=== PATIENT | female | born 1955 | race Caucasian/White ===

== ENCOUNTER → 2016-07-24 | Outpatient (CLI) | payer OTHER ==
[~2016-07-24] MED LIST: /LOR25TA PO; /METO25TAB PO; /NITR4TASL SL; /QUIN20TA PO; ACCU40TA PO; ALIG4CAP PO; AMLO5TAB2 PO; ATOR1TAB18 PO; AUGM875T27 PO; BACT800T5 PO; BENA25CA2 PO; CLAR10CA3 PO; CLOP75TA2 PO; COLA50CA3 PO; COQ-400C PO; CYMB60CA3 PO; DETR2CAP PO; DOC Q LACE PO; DOCU100C PO; DRIS50002 PO; DULE200A INH; DULO1CAP2 PO; EPIP0.3I2 INJ; EPIP0.3I2 SC; FERR325T PO; FERR325T3 PO; FLON0.054; FLUT1SPR2; FURO20TA2 PO; GABA300C3 PO; GLIM4TAB PO; HUMA100I5 SC; INSUHUMDS SC; INSULANT SC; IPRASOL4 NEB; KEFL250C6 PO; KETO2AER2 EXT; KETOCONAZOLE 2% TOP; LASI20TA PO; LETR2.5T PO; LEVA12INH INH; LEVA750T PO; LIDO1DIS2 TD; LIDO5DIS36 TD; LORA10TA2 PO; LYRI100C10 PO; LYRI75CA PO; METO25TAB PO; MOME50SP; NEOSOINT EXT; NIAC500T5 PO; NITR4TASL SL; NORC10TA2 PO; NORCOTAB PO; NYAM10003 EXT; NYST100024 TOP; NYST10CR TOP; OXYGEN; PLAV75TA38 PO; PROV10TA PO; QUIN20TA7 PO; RANE1000 PO; RANO5TAB PO; SING10TA32 PO; TOLT2TAB12 PO; TOUJ1.2I SC; TYLE325T5 PO; VICT18IN SC; VITA500047 PO; XANA0.25 PO; XANA0.5T PO; XOPEAER INH; [UNRECOGNIZED DRUG - CODE] SC; [UNRECOGNIZED DRUG - OTHER] INH; [UNRECOGNIZED DRUG - OTHER] TOP; gabapentin PO; niaspan PO; singular PO
--- NOTE | 2016-07-24 11:07 | REP ---
Right knee: Four views. History: Right leg pain. Question Murdock's cyst. Findings: Four views of the right knee demonstrate medial compartment osteoarthritic spurring and patellofemoral spurring and narrowing. There is nonarticular spurring on the superior and inferior poles of the patella as well. No evidence of joint effusion seen. The popliteal fossa soft tissues are unremarkable radiographically. Impression: Medial and patellofemoral compartment osteoarthritis. Signed by Rafael Nogueira MD 07/24/2016 02:39 P
--- NOTE | 2016-07-24 11:31 | REP ---
Right upper quadrant sonography: History: Elevated liver function studies. Findings: Scan quality is inhibited significantly by patient body habitus and overlying gas. The gallbladder is less than optimally seen although no stone or polyp or wall thickening is seen. Common bile duct is normal measuring 0.7 cm in greatest diameter. Poor insonation of the liver suggests fatty infiltration. There is a 0.7 cm hyperechoic area in the right lobe which may be a small hemangioma. No right renal abnormality is noted. The right kidney measures 10.2 x 5.2 x 5 cm. Impression: Very poor ultrasound image quality. Question 0.7 cm hemangioma of the right lobe of the liver and fatty infiltration of the liver. No other abnormality seen. Signed by Rafael Nogueira MD 07/24/2016 02:39 P
--- NOTE | 2016-07-24 12:32 | REP ---
SOFT-TISSUE ULTRASOUND RIGHT POPLITEAL FOSSA: HISTORY: Question Murdock's cyst. FINDINGS: Scanning of the right popliteal fossa in the area of palpable lump is performed. There is a subtle thin hypoechoic area in the posteromedial popliteal fossa soft tissues which may be a Murdock's cyst. This measures 5.3 cm in craniocaudal length by 1 cm in greatest thickness x 4 cm in medial to lateral dimension. Exam quality is inhibited by patient body habitus. IMPRESSION: Possible elongate Murdock's cyst in the posteromedial popliteal soft tissues. Signed by Rafael Nogueira MD 07/24/2016 02:40 P
== END ==
LOC: M RAD 09:50
PROVIDERS: ATTEND Nurse Practitioner Family
DX: R74.8 Abnormal levels of other serum enzymes (principal); M71.21 Synovial cyst of popliteal space [Baker], right knee; M17.11 Unilateral primary osteoarthritis, right knee

== ENCOUNTER 2016-07-30 11:28 | Emergency (ER) | payer OTHER ==
--- NOTE | 2016-07-30 12:23 | EDDOCDS ---
Physician Documentation [facility] Name: Montse Chaudhry Age: 61 yrs Sex: Female : 1955 Arrival Date: 07/30/2016 Time: 11:28 Bed PR Private MD: Yudi Vega NP Disposition: 07/30/16 12:13 Discharged to Home/Self Care. Impression: Pain in left knee. - Condition is Stable. - Discharge Instructions: Knee Bracing, Knee Pain. - Medication Reconciliation, Local Pharmacy Hours form. - Follow up: Orthopaedics, [facility]; When: Call to arrange an appointment; Reason: Further diagnostic work-up, Recheck today's complaints, Continuance of care. - Problem is new. - Symptoms are unchanged. Historical: - Allergies: Adhesives (Rash); Aspirin (Swelling); NSAIDS (Swelling); Pravachol; Zocor; Oatmeal; - Home Meds: 1. hydrocodone-acetaminophen 10-325 mg Oral tab 1 tab twice a day (Last dose: Unknown) 2. bupropion HCl 300 mg Oral Tb24 1 tab once daily 3. Xanax 0.5 mg Oral tab twice a day 4. Dulera 200-5 mcg/actuation inhalation HFAA daily 5. Humalog 90 units Sub-Q three times a day 6. Xopenex 45mcg/act 2 puffs Inhl every 4 hours 7. Ranexa 500 mg oral cp24 1 tab 2 times per day 8. nitroglycerin 0.4 mg SL subl prn 9. oxygen 4lnc 10. Singulair 10 mg Oral tab 1 tab once daily 11. loratadine 10 mg Oral tab 1 tab once daily 12. Lasix 20 mg Oral tab once daily 13. Toujeo SoloStar 150 subQ twice daily 14. metoprolol tartrate 25 mg Oral tab 1 tab 2 times per day 15. folic acid 800 mcg Oral tab 1 tab once daily 16. niaspan 500mg twice a day 17. Drisdol 50,000 unit Oral cap once wkly 18. quinapril 20 mg Oral tab 1 tab 2 times per day 19. Benadryl 25 mg Oral cap prn 20. nystatin cream 37425 units/gm twice a day 21. Plavix 75 mg Oral tab 1 tab once daily 22. atorvastatin 80 mg oral tab 1 tab once daily 23. Cymbalta 60 mg Oral cpDR 1 cap once daily 24. ferrous sulfate 325 mg (65 mg iron) Oral TbEC twice a day 25. Doc-Q-Lace 100 mg oral cap 1 cap once daily 26. BIPAP daily 27. Flonase 50 mcg/actuation Nasal spsn 1 spray once daily 28. Co Q-10 400 mg oral cap daily 29. Detrol 2 mg Oral tab 1 tab 2 times per day 30. gabapentin 300 mg Oral cap 1 cap 3 times per day 31. epi pen prn - PMHx: Anemia; Asthma; CAD; cervical cancer; COPD; Depression; Diabetes - IDDM: controlled; edema; endometrial hyperplasia; Hematuria; Hypercholesterolemia; Hypertension; kidney cysts; lumbar DDD; obstructive sleep apnea; polyneuropathy; Spinal Stenosis; Stroke; - PSHx: Appendectomy; D & C; Tonsillectomy; - Social history: Smoking status: Patient states was never smoker of tobacco. No barriers to communication noted. - Family history: Not pertinent. - : The pt / caregiver states he / she is on anticoagulants: Plavix. Home medication list is obtained from the patient. - Exposure Risk Screening:: None identified. Vital Signs: 07/30 11:30 BP 131 / 69; Pulse 72; Resp 20; Temp 97.8(O); Pulse Ox 100% on 4 lpm NC; Weight 214.1 elp kg / 472.01 lbs; Height 5 ft. 5 in. (165.10 cm); Pain 7/10; 11:30 Body Mass Index 78.54 (214.10 kg, 165.10 cm) elp MDM: 11:45 Knee, Complete Ordered. EDMS 12:07 [facility] Payment Agreement was scanned into [employer] and attached to record. jp5 12:07 Financial registration complete. jp5 Signatures: Dispatcher [employer] EDTN Andrea Khan PA PA btw Fuller, DesireeRN RN Evon Paul RN RN Charity Jones jp5 The chart was reviewed and I authenticate all verbal orders and agree with the evaluation and treatment provided.Attachments: 12:07 [facility] Payment Agreement jp5 MTDD
--- NOTE | 2016-07-30 12:23 | EDDOCDS ---
Nurse's Notes [facility] Name: Montse Chaudhry Age: 61 yrs Sex: Female : 1955 Arrival Date: 07/30/2016 Time: 11:28 Bed PR Private MD: Yudi Vega NP Diagnosis: Pain in left knee Presentation: 07/30 11:33 Presenting complaint: Patient states: left knee went back on me yesterday morning, then cjh to the side on me, by night time the knee was going crazy everywhere and I have it bandaged up tight to have some stability because I don't have no stability at all and it feels like hot inside. Adult Sepsis Screening: The patient does not have new or worsening altered mentation. Patient's respiratory rate is less than 22. Systolic blood pressure is greater than 100. Patient has a qSOFA score of 0- Negative Sepsis Screen. Suicide/Homicide risk assessment- the patient denies having any suicidal and/or homicidal ideations and does not present with any other emotional, behavioral or mental health complaints. Status: Patient is not a procurement services manager or dependent. Transition of care: patient was not received from another setting of care. 11:33 Acuity: RYAN Level 4 [facility] 11:33 Method Of Arrival: Ambulance [facility] Triage Assessment: 11:37 General: Appears in no apparent distress, comfortable, Behavior is appropriate for age, [facility] cooperative. Pain: Pain currently is 7 out of 10 on a pain scale. HIV screening NA for this visit Offered previously. Respiratory: Airway is patent Respiratory effort is even, unlabored, Respiratory pattern is regular, symmetrical. Derm: Skin is pink, warm & dry. Musculoskeletal: Range of motion limited in left knee. Historical: - Allergies: Adhesives (Rash); Aspirin (Swelling); NSAIDS (Swelling); Pravachol; Zocor; Oatmeal; - Home Meds: 1. hydrocodone-acetaminophen 10-325 mg Oral tab 1 tab twice a day (Last dose: Unknown) 2. bupropion HCl 300 mg Oral Tb24 1 tab once daily 3. Xanax 0.5 mg Oral tab twice a day 4. Dulera 200-5 mcg/actuation inhalation HFAA daily 5. Humalog 90 units Sub-Q three times a day 6. Xopenex 45mcg/act 2 puffs Inhl every 4 hours 7. Ranexa 500 mg oral cp24 1 tab 2 times per day 8. nitroglycerin 0.4 mg SL subl prn 9. oxygen 4lnc 10. Singulair 10 mg Oral tab 1 tab once daily 11. loratadine 10 mg Oral tab 1 tab once daily 12. Lasix 20 mg Oral tab once daily 13. Toujeo SoloStar 150 subQ twice daily 14. metoprolol tartrate 25 mg Oral tab 1 tab 2 times per day 15. folic acid 800 mcg Oral tab 1 tab once daily 16. niaspan 500mg twice a day 17. Drisdol 50,000 unit Oral cap once wkly 18. quinapril 20 mg Oral tab 1 tab 2 times per day 19. Benadryl 25 mg Oral cap prn 20. nystatin cream 94051 units/gm twice a day 21. Plavix 75 mg Oral tab 1 tab once daily 22. atorvastatin 80 mg oral tab 1 tab once daily 23. Cymbalta 60 mg Oral cpDR 1 cap once daily 24. ferrous sulfate 325 mg (65 mg iron) Oral TbEC twice a day 25. Doc-Q-Lace 100 mg oral cap 1 cap once daily 26. BIPAP daily 27. Flonase 50 mcg/actuation Nasal spsn 1 spray once daily 28. Co Q-10 400 mg oral cap daily 29. Detrol 2 mg Oral tab 1 tab 2 times per day 30. gabapentin 300 mg Oral cap 1 cap 3 times per day 31. epi pen prn - PMHx: Anemia; Asthma; CAD; cervical cancer; COPD; Depression; Diabetes - IDDM: controlled; edema; endometrial hyperplasia; Hematuria; Hypercholesterolemia; Hypertension; kidney cysts; lumbar DDD; obstructive sleep apnea; polyneuropathy; Spinal Stenosis; Stroke; - PSHx: Appendectomy; D & C; Tonsillectomy; - Social history: Smoking status: Patient states was never smoker of tobacco. No barriers to communication noted. - Family history: Not pertinent. - : The pt / caregiver states he / she is on anticoagulants: Plavix. Home medication list is obtained from the patient. - Exposure Risk Screening:: None identified. Screenin:22 Screening information is obtained from the patient. Fall risk: No risks identified. dsf Assistance ADL's: requires no assistance with activities of daily living. Abuse/DV Screen: The patient / caregiver reports he/she is: not in a situation that causes fear, pain or injury. Nutritional screening: No deficits noted. Advance Directives: Currently, there is no health care proxy. home support is adequate. Assessment: 12:20 Adult Sepsis Screening: The patient does not have new or worsening altered mentation. dsf Patient's respiratory rate is less than 22. Systolic blood pressure is greater than 100. Patient has a qSOFA score of 0- Negative Sepsis Screen. 12:21 General: Appears in no apparent distress, Behavior is appropriate for age, cooperative. dsf Awake, alert, oriented. Skin warm and dry. Moves all extremities. Moves all extremities. Moves all extremities. Moves all extremities. No apparent distress. The patient / caregiver is instructed regarding the plan of care and ED course. Vital Signs: 11:30 BP 131 / 69; Pulse 72; Resp 20; Temp 97.8(O); Pulse Ox 100% on 4 lpm NC; Weight 214.1 elp kg; Height 5 ft. 5 in. (165.10 cm); Pain 7/10; 11:30 Body Mass Index 78.54 (214.10 kg, 165.10 cm) elp Vitals: 11:30 Log In Time N/A - ambulance arrival. elp ED Course: 11:29 Patient visited by Prisca Ndiaye PCA. elp 11:29 Yudi Vega is Private Physician. elp 11:29 Patient moved to Waiting elp 11:31 Patient visited by Prisca Ndiaye PCA. elp 11:31 Patient moved to Pre RCE elp 11:34 Triage Initiated cj 11:38 [facility] btw 11:38 Courtney Woodson MD is Attending Physician. btw 11:38 Patient moved to Triage 2 cj 11:39 Patient visited by Andrea Khan PA. btw 11:43 Patient moved to TR2 rs6 11:50 Patient visited by Racheal Daugherty PCA. rs6 12:07 [facility] Payment Agreement was scanned into [employer] and attached to record. jp5 12:13 [facility] btw 12:14 Patient name changed from Montse\S\\S\Chaudhry\S\ to Montse\S\ \S\Chaudhry. EDMS 12:14 Patient moved to PR rs6 12:21 Patient has correct armband on for positive identification. dsf 12:22 No IV's were initiated during this patient's visit. No procedures done that require dsf assistance. Order Results: There are currently no results for this order. Outcome: 12:13 Discharge ordered by Provider. btw 12:21 The following High Risk Discharge criteria are identified: None. Discharged to home via dsf wheelchair. Condition: stable. No special radiology studies were completed. 12:22 Discharge Assessment: Patient awake, alert and oriented x 3. No cognitive and/or dsf functional deficits noted. Patient verbalized understanding of disposition instructions. patient administered narcotics - no. The following High Risk Discharge criteria are identified: None. Discharged to home via wheelchair. Discharge instructions given to patient, Instructed on discharge instructions, follow up and referral plans. Demonstrated understanding of instructions, Pt was receptive of discharge instructions/ teaching. Property sent home with patient. 12:23 Patient left the ED. dsf Signatures: Dispatcher [employer] EDMS Andrea Khan PA PA btw Shirley Lomeli,RN RN dsf Evon Quinn,RN RN [facility] Prisca Ndiaye, PEWTER FINISHER PEWTER FINISHER elp Racheal Daugherty, PEWTER FINISHER PEWTER FINISHER rs6 Charity Ortega MTDMargarito
--- NOTE | 2016-07-30 12:45 | REP ---
LEFT KNEE, FOUR VIEWS: HISTORY: Pain. There is no acute fracture or dislocation. There is narrowing of the joint spaces. Osteophytes are present on the femur and patella. A small suprapatellar joint effusion is present. IMPRESSION: Degenerative change as described above. Signed by Chet Hancock MD 07/30/2016 01:08 P
--- NOTE | 2016-08-01 13:25 | EDDOCDS ---
Physician Documentation [facility] Name: Montse Chaudhry Age: 61 yrs Sex: Female : 1955 Arrival Date: 07/30/2016 Time: 11:28 Bed PR Private MD: Yudi Vega NP Disposition: 07/30/16 12:13 Discharged to Home/Self Care. Impression: Pain in left knee. - Condition is Stable. - Discharge Instructions: Knee Bracing, Knee Pain. - Medication Reconciliation, Local Pharmacy Hours form. - Follow up: Orthopaedics, [facility]; When: Call to arrange an appointment; Reason: Further diagnostic work-up, Recheck today's complaints, Continuance of care. - Problem is new. - Symptoms are unchanged. Historical: - Allergies: Adhesives (Rash); Aspirin (Swelling); NSAIDS (Swelling); Pravachol; Zocor; Oatmeal; - Home Meds: 1. hydrocodone-acetaminophen 10-325 mg Oral tab 1 tab twice a day (Last dose: Unknown) 2. bupropion HCl 300 mg Oral Tb24 1 tab once daily 3. Xanax 0.5 mg Oral tab twice a day 4. Dulera 200-5 mcg/actuation inhalation HFAA daily 5. Humalog 90 units Sub-Q three times a day 6. Xopenex 45mcg/act 2 puffs Inhl every 4 hours 7. Ranexa 500 mg oral cp24 1 tab 2 times per day 8. nitroglycerin 0.4 mg SL subl prn 9. oxygen 4lnc 10. Singulair 10 mg Oral tab 1 tab once daily 11. loratadine 10 mg Oral tab 1 tab once daily 12. Lasix 20 mg Oral tab once daily 13. Toujeo SoloStar 150 subQ twice daily 14. metoprolol tartrate 25 mg Oral tab 1 tab 2 times per day 15. folic acid 800 mcg Oral tab 1 tab once daily 16. niaspan 500mg twice a day 17. Drisdol 50,000 unit Oral cap once wkly 18. quinapril 20 mg Oral tab 1 tab 2 times per day 19. Benadryl 25 mg Oral cap prn 20. nystatin cream 00625 units/gm twice a day 21. Plavix 75 mg Oral tab 1 tab once daily 22. atorvastatin 80 mg oral tab 1 tab once daily 23. Cymbalta 60 mg Oral cpDR 1 cap once daily 24. ferrous sulfate 325 mg (65 mg iron) Oral TbEC twice a day 25. Doc-Q-Lace 100 mg oral cap 1 cap once daily 26. BIPAP daily 27. Flonase 50 mcg/actuation Nasal spsn 1 spray once daily 28. Co Q-10 400 mg oral cap daily 29. Detrol 2 mg Oral tab 1 tab 2 times per day 30. gabapentin 300 mg Oral cap 1 cap 3 times per day 31. epi pen prn - PMHx: Anemia; Asthma; CAD; cervical cancer; COPD; Depression; Diabetes - IDDM: controlled; edema; endometrial hyperplasia; Hematuria; Hypercholesterolemia; Hypertension; kidney cysts; lumbar DDD; obstructive sleep apnea; polyneuropathy; Spinal Stenosis; Stroke; - PSHx: Appendectomy; D & C; Tonsillectomy; - Social history: Smoking status: Patient states was never smoker of tobacco. No barriers to communication noted. - Family history: Not pertinent. - : The pt / caregiver states he / she is on anticoagulants: Plavix. Home medication list is obtained from the patient. - Exposure Risk Screening:: None identified. Vital Signs: 07/30 11:30 BP 131 / 69; Pulse 72; Resp 20; Temp 97.8(O); Pulse Ox 100% on 4 lpm NC; Weight 214.1 elp kg / 472.01 lbs; Height 5 ft. 5 in. (165.10 cm); Pain 7/10; 11:30 Body Mass Index 78.54 (214.10 kg, 165.10 cm) elp MDM: 11:45 Knee, Complete Ordered. EDMS 12:07 [facility] Payment Agreement was scanned into [employer] and attached to record. jp5 12:07 Financial registration complete. jp5 14:40 T-Sheet-- Draft Copy was scanned into [employer] and attached to record. gb Signatures: Dispatcher [facility] EDTX Chuyita Calhoun, Chriss Reg Andrea Minor PA PA btw Fuller, Desiree,RN RN Evon PaulRN RN Charity Jones jp5 The chart was reviewed and I authenticate all verbal orders and agree with the evaluation and treatment provided.Attachments: 12:07 [facility] Payment Agreement jp5 14:40 T-Sheet-- Draft Copy gb Chart Complete MTDD
--- NOTE | 2016-08-01 13:25 | EDDOCDS ---
Nurse's Notes [facility] Name: Montse Cahudhry Age: 61 yrs Sex: Female : 1955 Arrival Date: 07/30/2016 Time: 11:28 Bed PR Private MD: Yudi Vega NP Diagnosis: Pain in left knee Presentation: 07/30 11:33 Presenting complaint: Patient states: left knee went back on me yesterday morning, then cjh to the side on me, by night time the knee was going crazy everywhere and I have it bandaged up tight to have some stability because I don't have no stability at all and it feels like hot inside. Adult Sepsis Screening: The patient does not have new or worsening altered mentation. Patient's respiratory rate is less than 22. Systolic blood pressure is greater than 100. Patient has a qSOFA score of 0- Negative Sepsis Screen. Suicide/Homicide risk assessment- the patient denies having any suicidal and/or homicidal ideations and does not present with any other emotional, behavioral or mental health complaints. Status: Patient is not a human services manager or dependent. Transition of care: patient was not received from another setting of care. 11:33 Acuity: RYAN Level [facility] 11:33 Method Of Arrival: Ambulance [facility] Triage Assessment: 11:37 General: Appears in no apparent distress, comfortable, Behavior is appropriate for age, [facility] cooperative. Pain: Pain currently is 7 out of 10 on a pain scale. HIV screening NA for this visit Offered previously. Respiratory: Airway is patent Respiratory effort is even, unlabored, Respiratory pattern is regular, symmetrical. Derm: Skin is pink, warm & dry. Musculoskeletal: Range of motion limited in left knee. Historical: - Allergies: Adhesives (Rash); Aspirin (Swelling); NSAIDS (Swelling); Pravachol; Zocor; Oatmeal; - Home Meds: 1. hydrocodone-acetaminophen 10-325 mg Oral tab 1 tab twice a day (Last dose: Unknown) 2. bupropion HCl 300 mg Oral Tb24 1 tab once daily 3. Xanax 0.5 mg Oral tab twice a day 4. Dulera 200-5 mcg/actuation inhalation HFAA daily 5. Humalog 90 units Sub-Q three times a day 6. Xopenex 45mcg/act 2 puffs Inhl every 4 hours 7. Ranexa 500 mg oral cp24 1 tab 2 times per day 8. nitroglycerin 0.4 mg SL subl prn 9. oxygen 4lnc 10. Singulair 10 mg Oral tab 1 tab once daily 11. loratadine 10 mg Oral tab 1 tab once daily 12. Lasix 20 mg Oral tab once daily 13. Toujeo SoloStar 150 subQ twice daily 14. metoprolol tartrate 25 mg Oral tab 1 tab 2 times per day 15. folic acid 800 mcg Oral tab 1 tab once daily 16. niaspan 500mg twice a day 17. Drisdol 50,000 unit Oral cap once wkly 18. quinapril 20 mg Oral tab 1 tab 2 times per day 19. Benadryl 25 mg Oral cap prn 20. nystatin cream 42911 units/gm twice a day 21. Plavix 75 mg Oral tab 1 tab once daily 22. atorvastatin 80 mg oral tab 1 tab once daily 23. Cymbalta 60 mg Oral cpDR 1 cap once daily 24. ferrous sulfate 325 mg (65 mg iron) Oral TbEC twice a day 25. Doc-Q-Lace 100 mg oral cap 1 cap once daily 26. BIPAP daily 27. Flonase 50 mcg/actuation Nasal spsn 1 spray once daily 28. Co Q-10 400 mg oral cap daily 29. Detrol 2 mg Oral tab 1 tab 2 times per day 30. gabapentin 300 mg Oral cap 1 cap 3 times per day 31. epi pen prn - PMHx: Anemia; Asthma; CAD; cervical cancer; COPD; Depression; Diabetes - IDDM: controlled; edema; endometrial hyperplasia; Hematuria; Hypercholesterolemia; Hypertension; kidney cysts; lumbar DDD; obstructive sleep apnea; polyneuropathy; Spinal Stenosis; Stroke; - PSHx: Appendectomy; D & C; Tonsillectomy; - Social history: Smoking status: Patient states was never smoker of tobacco. No barriers to communication noted. - Family history: Not pertinent. - : The pt / caregiver states he / she is on anticoagulants: Plavix. Home medication list is obtained from the patient. - Exposure Risk Screening:: None identified. Screenin:22 Screening information is obtained from the patient. Fall risk: No risks identified. dsf Assistance ADL's: requires no assistance with activities of daily living. Abuse/DV Screen: The patient / caregiver reports he/she is: not in a situation that causes fear, pain or injury. Nutritional screening: No deficits noted. Advance Directives: Currently, there is no health care proxy. home support is adequate. Assessment: 12:20 Adult Sepsis Screening: The patient does not have new or worsening altered mentation. dsf Patient's respiratory rate is less than 22. Systolic blood pressure is greater than 100. Patient has a qSOFA score of 0- Negative Sepsis Screen. 12:21 General: Appears in no apparent distress, Behavior is appropriate for age, cooperative. dsf Awake, alert, oriented. Skin warm and dry. Moves all extremities. Moves all extremities. Moves all extremities. Moves all extremities. No apparent distress. The patient / caregiver is instructed regarding the plan of care and ED course. Vital Signs: 11:30 BP 131 / 69; Pulse 72; Resp 20; Temp 97.8(O); Pulse Ox 100% on 4 lpm NC; Weight 214.1 elp kg; Height 5 ft. 5 in. (165.10 cm); Pain 7/10; 11:30 Body Mass Index 78.54 (214.10 kg, 165.10 cm) elp Vitals: 11:30 Log In Time N/A - ambulance arrival. elp ED Course: 11:29 Patient visited by Prisca Ndiaye PCA. elp 11:29 Yudi Vega is Private Physician. elp 11:29 Patient moved to Waiting elp 11:31 Patient visited by Prisca Ndiaye PCA. elp 11:31 Patient moved to Pre RCE elp 11:34 Triage Initiated cj 11:38 [facility] btw 11:38 Courtney Woodson MD is Attending Physician. btw 11:38 Patient moved to Triage 2 cj 11:39 Patient visited by Andrea Khan PA. btw 11:43 Patient moved to TR2 rs6 11:50 Patient visited by Racheal Daugherty PCA. rs6 12:07 [facility] Payment Agreement was scanned into [employer] and attached to record. jp5 12:13 [facility] btw 12:14 Patient name changed from Montse\S\\S\Chaudhry\S\ to Montse\S\ \S\Chaudhry. EDMS 12:14 Patient moved to rs6 12:21 Patient has correct armband on for positive identification. dsf 12:22 No IV's were initiated during this patient's visit. No procedures done that require dsf assistance. 12:56 Knee, Complete Returned. EDMS 14:40 T-Sheet-- Draft Copy was scanned into [employer] and attached to record. gb Order Results: Radiology Order: Knee, Complete Test: Knee, Complete REASON FOR EXAMINATION: atraumatic pain; LEFT KNEE, FOUR VIEWS:; ; HISTORY: Pain.; ; There is no acute fracture or dislocation. There is narrowing of the joint; spaces. Osteophytes are present on the femur and patella. A small suprapatellar; joint effusion is present.; ; IMPRESSION:; ; Degenerative change as described above.; ; ; Signed by; Chet Hancock MD 07/30/2016 01:08 P; Outcome: 12:13 Discharge ordered by Provider. btw 12:21 The following High Risk Discharge criteria are identified: None. Discharged to home via dsf wheelchair. Condition: stable. No special radiology studies were completed. 12:22 Discharge Assessment: Patient awake, alert and oriented x 3. No cognitive and/or dsf functional deficits noted. Patient verbalized understanding of disposition instructions. patient administered narcotics - no. The following High Risk Discharge criteria are identified: None. Discharged to home via wheelchair. Discharge instructions given to patient, Instructed on discharge instructions, follow up and referral plans. Demonstrated understanding of instructions, Pt was receptive of discharge instructions/ teaching. Property sent home with patient. 12:23 Patient left the ED. dsf Signatures: [facility] Chuyita Calhoun, Reg Reg gb Andrea Khan PA PA btw Shirley Lomeli RN RN dsf Evon Quinn,RN RN macario Prisca Ndiaye, MANUFACTURING ASSOCIATE MANUFACTURING ASSOCIATE clementinep Racheal Daugherty, MANUFACTURING ASSOCIATE MANUFACTURING ASSOCIATE rs6 Charity Ortega jp5 Chart Complete MTDD
--- NOTE | 2016-08-01 13:25 | EDDOCDS ---
Physician Documentation [facility] Name: Montse Chaudhry Age: 61 yrs Sex: Female : 1955 Arrival Date: 07/30/2016 Time: 11:28 Bed PR Private MD: Yudi Vega NP Disposition: 07/30/16 12:13 Discharged to Home/Self Care. Impression: Pain in left knee. - Condition is Stable. - Discharge Instructions: Knee Bracing, Knee Pain. - Medication Reconciliation, Local Pharmacy Hours form. - Follow up: Orthopaedics, [facility]; When: Call to arrange an appointment; Reason: Further diagnostic work-up, Recheck today's complaints, Continuance of care. - Problem is new. - Symptoms are unchanged. Historical: - Allergies: Adhesives (Rash); Aspirin (Swelling); NSAIDS (Swelling); Pravachol; Zocor; Oatmeal; - Home Meds: 1. hydrocodone-acetaminophen 10-325 mg Oral tab 1 tab twice a day (Last dose: Unknown) 2. bupropion HCl 300 mg Oral Tb24 1 tab once daily 3. Xanax 0.5 mg Oral tab twice a day 4. Dulera 200-5 mcg/actuation inhalation HFAA daily 5. Humalog 90 units Sub-Q three times a day 6. Xopenex 45mcg/act 2 puffs Inhl every 4 hours 7. Ranexa 500 mg oral cp24 1 tab 2 times per day 8. nitroglycerin 0.4 mg SL subl prn 9. oxygen 4lnc 10. Singulair 10 mg Oral tab 1 tab once daily 11. loratadine 10 mg Oral tab 1 tab once daily 12. Lasix 20 mg Oral tab once daily 13. Toujeo SoloStar 150 subQ twice daily 14. metoprolol tartrate 25 mg Oral tab 1 tab 2 times per day 15. folic acid 800 mcg Oral tab 1 tab once daily 16. niaspan 500mg twice a day 17. Drisdol 50,000 unit Oral cap once wkly 18. quinapril 20 mg Oral tab 1 tab 2 times per day 19. Benadryl 25 mg Oral cap prn 20. nystatin cream 27713 units/gm twice a day 21. Plavix 75 mg Oral tab 1 tab once daily 22. atorvastatin 80 mg oral tab 1 tab once daily 23. Cymbalta 60 mg Oral cpDR 1 cap once daily 24. ferrous sulfate 325 mg (65 mg iron) Oral TbEC twice a day 25. Doc-Q-Lace 100 mg oral cap 1 cap once daily 26. BIPAP daily 27. Flonase 50 mcg/actuation Nasal spsn 1 spray once daily 28. Co Q-10 400 mg oral cap daily 29. Detrol 2 mg Oral tab 1 tab 2 times per day 30. gabapentin 300 mg Oral cap 1 cap 3 times per day 31. epi pen prn - PMHx: Anemia; Asthma; CAD; cervical cancer; COPD; Depression; Diabetes - IDDM: controlled; edema; endometrial hyperplasia; Hematuria; Hypercholesterolemia; Hypertension; kidney cysts; lumbar DDD; obstructive sleep apnea; polyneuropathy; Spinal Stenosis; Stroke; - PSHx: Appendectomy; D & C; Tonsillectomy; - Social history: Smoking status: Patient states was never smoker of tobacco. No barriers to communication noted. - Family history: Not pertinent. - : The pt / caregiver states he / she is on anticoagulants: Plavix. Home medication list is obtained from the patient. - Exposure Risk Screening:: None identified. Vital Signs: 07/30 11:30 BP 131 / 69; Pulse 72; Resp 20; Temp 97.8(O); Pulse Ox 100% on 4 lpm NC; Weight 214.1 elp kg / 472.01 lbs; Height 5 ft. 5 in. (165.10 cm); Pain 7/10; 11:30 Body Mass Index 78.54 (214.10 kg, 165.10 cm) elp MDM: 11:45 Knee, Complete Ordered. EDMS 12:07 [facility] Payment Agreement was scanned into [employer] and attached to record. jp5 12:07 Financial registration complete. jp5 14:40 T-Sheet-- Draft Copy was scanned into [employer] and attached to record. gb Signatures: Dispatcher [facility] EDND Chuyita Calhoun, Chriss Reg Andrea Minor PA PA btw Fuller, Desiree,RN RN Evon PaulRN RN Charity Jones jp5 The chart was reviewed and I authenticate all verbal orders and agree with the evaluation and treatment provided.Attachments: 12:07 [facility] Payment Agreement jp5 14:40 T-Sheet-- Draft Copy gb Chart Complete MTDD
== END 2016-07-30 12:23 | disposition home or self-care (01) ==
LOC: M ED 11:28
DX: M25.562 Pain in left knee (principal); E66.01 Morbid (severe) obesity due to excess calories; Z68.45 Body mass index [BMI] 70 or greater, adult; J45.909 Unspecified asthma, uncomplicated; I10 Essential (primary) hypertension; E11.9 Type 2 diabetes mellitus without complications; D64.9 Anemia, unspecified; I25.10 Atherosclerotic heart disease of native coronary artery without angina pectoris; F32.9 Major depressive disorder, single episode, unspecified; E78.00 Pure hypercholesterolemia, unspecified; G47.30 Sleep apnea, unspecified; M48.00 Spinal stenosis, site unspecified; Z85.41 Personal history of malignant neoplasm of cervix uteri; N28.1 Cyst of kidney, acquired; M51.36 Other intervertebral disc degeneration, lumbar region; G62.9 Polyneuropathy, unspecified; Z86.73 Personal history of transient ischemic attack (TIA), and cerebral infarction without residual deficits; Z79.899 Other long term (current) drug therapy; Z79.891 Long term (current) use of opiate analgesic; Z79.51 Long term (current) use of inhaled steroids; Z79.02 Long term (current) use of antithrombotics/antiplatelets; Z88.6 Allergy status to analgesic agent; Z88.8 Allergy status to other drugs, medicaments and biological substances; Z91.018 Allergy to other foods; Z91.048 Other nonmedicinal substance allergy status

== ENCOUNTER → 2016-08-04 | Outpatient (REF) | payer OTHER ==
[2016-08-04 18:46] LABS: MEAN CORPUSCULAR HGB CONC 30.5 g/dl (32.0-36.5); RED CELL DISTRIBUTION WIDTH 14.2 % (11.5-14.5); WHITE BLOOD COUNT 7.8 K/mm3 (4.0-10.0)
[2016-08-04 19:22] LABS: ALBUMIN 2.9 GM/DL (3.2-5.2); ALBUMIN/GLOBULIN RATIO 0.76 (1.00-1.93); BILIRUBIN,TOTAL 0.4 MG/DL (0.2-1.0); CALCIUM LEVEL 8.9 MG/DL (8.5-10.1); CREATININE FOR GFR 1.52 MG/DL (0.55-1.02); GLOMERULAR FILTRATION RATE 37.3 (>51); POTASSIUM SERUM 3.9 MEQ/L (3.5-5.1); TOTAL PROTEIN 6.7 GM/DL (6.4-8.2)
== END ==
LOC: M SFHCPLAZ 14:48
PROVIDERS: ATTEND Nurse Practitioner Family
DX: D50.0 Iron deficiency anemia secondary to blood loss (chronic) (principal); R74.8 Abnormal levels of other serum enzymes; E78.2 Mixed hyperlipidemia

== ENCOUNTER 2016-09-30 20:01 | Inpatient (IN) | payer OTHER ==
[~2016-09-30] VITALS: Ht 165.1 cm; Wt 208.0 kg
[~2016-09-30 20:01] MED LIST changes: +GABA-282 PO; -GABA300C3 PO
--- NOTE | 2016-09-30 22:40 | REPUSA ---
CLINICAL HISTORY: Evaluation of inguinal canal/femoral triangle. TECHNIQUE: Realtime sonographic images were obtained in multiple projections. Scanned left groin. E xtremely limited exam due to morbid obesity. FINDINGS: Inguinal canal not definitely visualized. There are enlarged lymph nodes seen measuring 2.5 x 1.3 x 2.3 cm and 3.8 x 1.4 x 1.5 cm. No additional findings. IMPRESSION: Enlarged lymph nodes. Correlation with CT is recommended. Thank you for your kind referral of this patient. We appreciate the opportunity to participate in thi s patient's care.
[2016-09-30] MEDS ORDERED: HumuLIN R (REGULAR) INSULIN (NovoLIN R) **100U/ML** PER UNIT SC STA (23:19)
[2016-09-30] MEDS ORDERED: DEXTROSE 50% 50 ML SYRINGE IV STA (23:32)
[2016-09-30 23:38] LABS: BASO % 0.6 % (0.0-1.0); EOS # 0.3 K/mm3 (0.0-0.50); EOS % 5.5 % (0.0-3.0); LARGE UNSTAINED CELL # 0.2 K/mm3 (0.0-0.4); LARGE UNSTAINED CELL % 2.8 % (0.0-4.0); LYMPH # 1.5 K/mm3 (1.5-4.5); LYMPH % 25.4 % (24.0-44.0); MEAN CORPUSCULAR HEMOGLOBIN 29.2 pg (27.0-33.0); MEAN CORPUSCULAR HGB CONC 31.5 g/dl (32.0-36.5); MEAN CORPUSCULAR VOLUME 92.7 fl (80.0-96.0); MONO # 0.4 K/mm3 (0.0-0.8); NEUTROPHILS # 3.6 K/mm3 (1.8-7.7); NEUTROPHILS % 58.7 % (36.0-66.0); PLATELET COUNT, AUTOMATED 319 k/mm3 (150-450); RED CELL DISTRIBUTION WIDTH 13.8 % (11.5-14.5); WHITE BLOOD COUNT 6.1 K/mm3 (4.0-10.0)
[2016-09-30] MEDS ORDERED: GASTROGRAFIN SOLUTION 30ML (Q9963) PO ONE (23:45)
[2016-10-01] MEDS ORDERED: GASTROGRAFIN SOLUTION 30ML (Q9963) PO ONE (00:15)
[2016-10-01] MEDS ORDERED: clonazePAM 0.5 MG TAB PO ONE (00:45)
[2016-10-01] MEDS ORDERED: clonazePAM 1 MG TAB PO ONE (00:45)
[2016-10-01 01:11] LABS: CALCIUM LEVEL 8.8 MG/DL (8.5-10.1); CREATININE FOR GFR 1.38 MG/DL (0.55-1.02); GLOMERULAR FILTRATION RATE 41.7 (>51); POTASSIUM SERUM 3.9 MEQ/L (3.5-5.1)
[2016-10-01] MEDS ORDERED: DEXTROSE 50% 50 ML SYRINGE IV STA (02:18)
[2016-10-01] MEDS ORDERED: MORPHINE 2 MG/ML 1ML SYRINGE IV ONE (02:30)
--- NOTE | 2016-10-01 03:00 | REPUSA ---
CLINICAL HISTORY: Abdominal pain. TECHNIQUE: Multiple axial, sagittal and coronal CT images were obtained through the abdomen and pelvi s without administration of IV contrast material. Patient ingested oral contrast. COMMENTS: The liver is mildly enlarged without mass or defect. There is no intra or extrahepatic biliary ducta l dilatation. The spleen is normal. The gallbladder is within normal limits. The pancreas is of wali l contour and attenuation characteristics. There is no evidence of adrenal mass. 3mm right renal non obstructing stone. The kidneys are normal in size, shape and configuration. No left renal or ureteral calculi are identi fied. There is no hydroureter or hydronephrosis. There is no evidence for appendicitis. There is no bowel wall thickening. No evidence for small or la rge bowel obstruction. There is no evidence of abdominal ascites or lymphadenopathy. There is no evidence of intrinsic or extrinsic bladder mass. There is no pelvic ascites or lymphadeno nando. Moderate large bowel fecal stasis. Images of the lung bases show no evidence of pleural or parenchymal mass. There are no pleural effusi ons. The bony structures are free of lytic or blastic lesions. Multilevel degenerative changes are seen in volving the thoracolumbar spine. Scattered calcifications are seen involving the aorta and major branches compatible with atherosclero sis. Left lateral anterior abdominal wall hernia containing non incarcerated small bowels. Subcutaneous fat stranding of the anterior abdominal. Panniculitis or cellulitis. Mildly prominent bilateral inguinal lymph nodes. The largest measures 3.5 cm. IMPRESSION: Moderate large bowel fecal stasis. Left lateral anterior abdominal hernia containing nonincarcerated small bowel is. Hepatomegaly. Right nephrolithiasis. Mildly prominent bilateral inguinal lymph nodes. The largest measures 3.5 cm. Thank you for your kind referral of this patient.
[2016-10-01] MEDS ORDERED: NORCO, ANEXSIA 5/325MG TABLET (HYDROcodone/ACETAMINOPHEN) PO ONE (04:30)
[2016-10-01] MEDS ORDERED: ACETAMINOPHEN TAB 650MG DOSE (2X325MG) PO PRN (06:00)
[2016-10-01] MEDS ORDERED: DIPH25CA PO (06:28)
[2016-10-01] MEDS ORDERED: INSUR50VL SC (06:28)
[2016-10-01] MEDS ORDERED: AMLO5TAB2 PO (06:28)
[2016-10-01] MEDS ORDERED: DEXTROSE 50% 50 ML SYRINGE IV PRN (06:30)
[2016-10-01] MEDS ORDERED: ALBUTEROL SULFATE 2.5 MG/0.5 ML INH NEB SOLN NEB PRN (06:30)
[2016-10-01] MEDS ORDERED: GLUCAGON FOR INJ 1 MG VIAL (J1610) SC PRN (06:30)
[2016-10-01] MEDS ORDERED: GLUCOSE 4 GM CHEW TABLET PO PRN (06:30)
[2016-10-01] MEDS ORDERED: NYST10CR EXT (06:34)
[2016-10-01] MEDS ORDERED: NIAC500T44 PO (06:34)
[2016-10-01] MEDS ORDERED: METO12TA PO (06:34)
[2016-10-01] MEDS ORDERED: CYCL5TA PO (06:43)
[2016-10-01] MEDS ORDERED: BUPR150T3 PO (06:43)
[2016-10-01] MEDS ORDERED: FOLI800T PO (06:43)
[2016-10-01 06:50] VITALS: BP 122/65
--- NOTE | 2016-10-01 07:26 | HPE ---
DATE OF ADMISSION: 10/01/2016 PRIMARY CARE PROVIDER: Yudi Vega NP HISTORY OF PRESENT ILLNESS: This patient is a 61-year-old, morbidly obese female with a past medical history significant for diabetes, high cholesterol, asthma, sleep apnea on bilevel positive airway pressure (BiPAP), hypertension, angina, morbid obesity, iron deficiency anemia, stroke, history of urinary tract infection (UTI), presented to [facility] on 09/30/2016 near midnight for acute worsening of the left inguinal pain. Patient stated she has been having chronic back problem and patient was on pain medication in the past. However, since one week ago, patient started feeling discomfort near the left inguinal hernia and in the last 24 hours the discomfort has been intermittent but it is tolerable. However, in the past 24 hours, when patient tried to move the commode she felt something popping and she started having constant sharp, stabbing pain on the left inguinal/groin area and the pain will get worse with body movements and the pain seems to have radiation to the left posterior back. The pain became so intolerable that patient had to come to [facility] for further evaluation. Patient denied any similar episode in the past. Patient does have a history of multiple urinary tract infection (UTI) in the past. However, currently, patient denies any urgency, frequency or hematuria. Patient is not sure if she has a history of lumbar stenosis. Denies any associated symptoms and her last bowel movement is yesterday morning. Patient did have a history cervical cancer. She had multiple dilation and curettage and patient was on chemotherapy in the past. ALLERGIES: 1. ASPIRIN (swelling). 2. NONSTEROIDAL ANTI- INFLAMMATORY DRUG (NSAID) (swelling). 3. COLONOSCOPY PREP . 4. STATIN (body ache). PAST MEDICAL HISTORY: 1. Insulin-dependent diabetes. 2. Hyperlipidemia. 3. Asthma. 4. Sleep apnea on BiPAP. 5. Hypertension. 6. Urinary incontinence. 7. Angina. 8. Cervical cancer and endometrial neoplasia. 9. Morbid obesity. 10. Iron deficient anemia. 11. Stroke determined by clinical assessment. PAST SURGICAL HISTORY: 1. Appendectomy. 2. Tonsillectomy. SOCIAL HISTORY: Denies smoking. Denied alcohol use. Denies any recreational drug use. REVIEW OF SYSTEMS: GENERAL: No fever. No chills. HEENT: No vision changes. No auditory changes. CARDIOVASCULAR: No chest pain. No palpitations. RESPIRATORY: No cough. No sputum production. No wheezes. GASTROINTESTINAL: No nausea. No vomiting. No abdominal pain. Patient had a bowel movement yesterday. GENITOURINARY: History of UTI in the past growing Streptococcus and Staphylococcus Cronobacter and also Proteus. Currently denies any dysuria, frequency, urgency or hematuria. MUSCULOSKELETAL: Chronic back pain bilaterally. NEUROLOGICAL: Chronic peripheral neuropathy more significant at the left lower extremity. OBJECTIVE: VITAL SIGNS: Temperature is 97.6, pulse is 103, respirations 18, blood pressure is 179/85, pulse oximetry 86% with 4 liter nasal cannula. GENERAL: Mild distress (patient just received IV morphine times three in ED). HEENT: Unable to measure jugular venous distention (JVD) due body habitus. Otherwise, normocephalic, atraumatic. Extraocular motor grossly intact. CARDIOVASCULAR: Very difficult to auscultate the heart sound due to body habitus, but I cannot appreciate any irregular heart rate. Positive S1, S2. RESPIRATORY: Very distant lung sound due to the body habitus, but I cannot appreciate any wheezes or crackles. ABDOMEN: Bowel sounds present. No rebound. No guarding. Multiple abdominal fold. There is some skin macerations due to the high moisture. MUSCULOSKELETAL: Tenderness with palpation mainly in the upper inguinal area. The pain is reproducible with palpation. No significant extremity swellings. No cyanosis. Cannot appreciate any costovertebral angle (CVA) tenderness. NEUROLOGICAL: Sensation to fine touch grossly intact. However, the sensation is mildly decreased of the left lower extremity. Muscle strength is 5/5. LABORATORY DATA: WBC is 6.1, hemoglobin 10.7, hematocrit 33.9, platelet count is 319. Sodium is 143, potassium 3.9, chloride is 106, carbon dioxide 32, BUN 20, creatinine 1.38, GFR is 41.7, fasting glucose is 63, calcium is 8.8. IMAGING STUDY: CT of abdomen and pelvis with oral contrast show moderate large bowel fecal stasis. Left lower anterior abdominal hernia containing incarcerated small bowel. Hepatomegaly. Right-sided nephrolithiasis. Mildly prominent bilateral inguinal lymph nodes (the largest measured 3.5 cm). Pelvic ultrasound show enlarged lymph nodes. Correlation with CT is recommended. ASSESSMENT AND PLAN: 1. Left-sided groin pain. The patient will be admitted to medical-surgical floor under inpatient status. Patient will have as needed opiate for pain control. We will try to rule out any vertebral spine involvement contributing to the patient's current presentation. Patient will need an MRI of the lumbar spine. If patient cannot fit into our current in house MRI machine, tomorrow there will be a portable MRI able to fit the patient. CT does not show any stone or hydronephrosis on the left. The CT abdomen and pelvis scan does not show any abnormal bony structures. Due to his history of multiple UTI in the past, we will followup with urinalysis and urine cultures. 2. Diabetes. Patient will be on consistent carbohydrate diet and covered with sliding scale. 3. Asthma. Patient will have a breathing treatment as needed. Currently, patient does not have any exacerbations. We will continue patient's home asthma medications. 4. Obstructive sleep apnea. Patient may use her own BiPAP. 5. Primary hypertension. Currently, patient has a mild elevation of the blood pressure due to acute pain. We have noticed once the pain is controlled patient's blood pressure is actually in the satisfactory range. 6. Iron deficient anemia. Continue to monitor. Patient is on iron supplement. 7. Morbid obesity. 8. Hypercholesterolemia. 9. History of cervical cancer status post surgical removal and chemotherapy. 10. Stroke determined by clinical assessment. Continue patient's home medication. 11. Deep venous thrombosis (DVT) prophylaxis. Patient will be on heparin. MTDD
[2016-10-01] MEDS: HumaLOG INSULIN (NovoLOG) PER UNIT SC SCH ×4 (07:29→20:42)
[2016-10-01] MEDS: CYCLOBENZAPRINE 5MG TABLET PO SCH ×3 (09:00→21:22)
[2016-10-01] MEDS: GABAPENTIN 300 MG CAP PO SCH ×3 (09:00→21:22)
[2016-10-01] MEDS: HEPARIN SOD (PORCINE) 5000 UNITS/ML VIAL SC SCH ×3 (09:09→21:22)
[2016-10-01] MEDS ORDERED: ALPRAZolam 0.5 MG TAB PO PRN (11:15)
[2016-10-01] MEDS ORDERED: FLUTICASONE PROP 0.05% NASAL SPRAY 16 GM (FLONASE) PRN (11:15)
[2016-10-01] MEDS ORDERED: IPRATROPIUM 0.5MG/ALBUTEROL 2.5MG INH SOL UD 3ML (DUONEB)(J7620) NEB PRN (11:15)
[2016-10-01] MEDS ORDERED: diphenhydrAMINE 25 MG CAP PO PRN (11:15)
[2016-10-01 12:32] LABS: ALBUMIN 2.8 GM/DL (3.2-5.2); ALBUMIN/GLOBULIN RATIO 0.82 (1.00-1.93); BILIRUBIN,TOTAL 0.3 MG/DL (0.2-1.0); CALCIUM LEVEL 8.7 MG/DL (8.5-10.1); CREATININE FOR GFR 1.46 MG/DL (0.55-1.02); POTASSIUM SERUM 4.2 MEQ/L (3.5-5.1); TOTAL PROTEIN 6.2 GM/DL (6.4-8.2)
[2016-10-01 12:47] LABS: MEAN CORPUSCULAR HGB CONC 30.6 g/dl (32.0-36.5); MEAN CORPUSCULAR VOLUME 94.8 fl (80.0-96.0); RED CELL DISTRIBUTION WIDTH 13.8 % (11.5-14.5); WHITE BLOOD COUNT 7.3 K/mm3 (4.0-10.0)
[2016-10-01] MEDS: FUROSEMIDE 20 MG TAB PO SCH (13:08)
[2016-10-01] MEDS: FERROUS SULFATE 325MG TAB PO SCH (13:08)
[2016-10-01] MEDS: CLOPIDOGREL 75 MG TAB PO SCH (13:08)
[2016-10-01] MEDS: buPROPion **XL** TABLET 150MG (WELLBUTRIN XL) PO SCH (13:09)
[2016-10-01] MEDS: DULoxetine 30 MG CAP (CYMBALTA) PO SCH (13:09)
[2016-10-01] MEDS: amLODIPine 5 MG TAB PO SCH (13:09)
[2016-10-01 14:00] VITALS: BP 126/58
--- NOTE | 2016-10-01 15:20 | IPN ---
DATE: 10/01/2016 Montse is seen in [address] [place] [address]. Admitted with intractable left groin pain. Reviewed the history and physical. Discussed the case with Dr. Natalee Arriola who admitted the patient. Workup was limited by patient's morbid obesity. She is in excess of 500 pounds on our scales at the office which limits imaging. PHYSICAL EXAMINATION: LUNGS: Clear. HEART: Regular rhythm. ABDOMEN: Obese, nontender. She is tender to palpate left medial thigh. Pain radiates to the left medial thigh on internal and external rotation of the left hip, which she holds quite strongly against resistance. PLAN: At this point our imaging has been limited.
--- NOTE | 2016-10-01 16:06 | IPN ---
DATE: 10/01/2016 Montse is seen [facility]. She was admitted with left inguinal pain. She had a CT on admission that showed nonincarcerated left anterior abdominal hernia. Pain radiates into the left groin. She has been able to walk with this. Workup was limited by morbid obesity. Weight on the office scale is in excess of 500 pounds, 210 kg on the hospital scales which are bed scales. PHYSICAL EXAMINATION: Blood pressure 122/75, pulse 76, oxygen is at four liters with 99% saturation. GENERAL APPEARANCE: Lying in bed, uncomfortable. LUNGS: Clear. HEART: Regular rate and rhythm. ABDOMEN: Obese, nontender. She has pain in the left inguinal area. She has pain when we try to rotate the hip left and right. IMPRESSION: Left hip pain, ? referred from the hernia ? coming from her hip. I have asked for a consultation from Dr. Del Valle. Admission noted mentioned getting an MRI scan. She did have to wait until tomorrow for the open MR to come to [facility]. I will put orders in for MRI of her lumbosacral spine as well as left hip.
--- NOTE | 2016-10-01 18:23 | REP ---
Clinical: Pain. Technique: Neutral and frog lateral views of the left hip. Findings: Moderate arthritic degenerative changes include increased sclerosis and irregularity to the acetabulum with marginal spurring as well as joint space narrowing. Cortical irregularity to the femoral head also suggested. No acute fracture dislocation. Impression: Moderate arthritic degenerative changes. Signed by Allen Rojas MD 10/01/2016 06:15 P
--- NOTE | 2016-10-01 18:23 | REP ---
Clinical: Pain. Technique: AP and frog lateral views of the left femur and read in conjunction with left hip series. Findings: Moderate degenerative changes of the left hip and left knee noted. Findings include joint space narrowing with subchondral sclerosis and marginal spurring at both the knee and hip joints. There is no evidence for acute fracture dislocation. Impression: Moderate degenerative changes of the left hip and left knee. Signed by Allen Rojas MD 10/01/2016 06:15 P
[2016-10-01 22:00] VITALS: BP 143/65
[2016-10-02] MEDS: HEPARIN SOD (PORCINE) 5000 UNITS/ML VIAL SC SCH ×3 (05:39→21:48)
[2016-10-02 06:00] VITALS: BP 147/72
[2016-10-02] MEDS: PERCOCET 5MG/325MG TAB PO PRN ×4 (06:32→21:47)
[2016-10-02 07:34] LABS: MEAN CORPUSCULAR HEMOGLOBIN 29.5 pg (27.0-33.0); MEAN CORPUSCULAR HGB CONC 31.3 g/dl (32.0-36.5); MEAN CORPUSCULAR VOLUME 94.3 fl (80.0-96.0); RED CELL DISTRIBUTION WIDTH 13.7 % (11.5-14.5); WHITE BLOOD COUNT 5.6 K/mm3 (4.0-10.0)
[2016-10-02 08:07] LABS: CALCIUM LEVEL 8.5 MG/DL (8.5-10.1); CREATININE FOR GFR 1.38 MG/DL (0.55-1.02); GLOMERULAR FILTRATION RATE 41.7 (>51); POTASSIUM SERUM 3.9 MEQ/L (3.5-5.1)
[2016-10-02] MEDS: buPROPion **XL** TABLET 150MG (WELLBUTRIN XL) PO SCH (10:20)
[2016-10-02] MEDS: DULoxetine 30 MG CAP (CYMBALTA) PO SCH (10:20)
[2016-10-02] MEDS: FUROSEMIDE 20 MG TAB PO SCH (10:20)
[2016-10-02] MEDS: GABAPENTIN 300 MG CAP PO SCH ×3 (10:20→21:46)
[2016-10-02] MEDS: CLOPIDOGREL 75 MG TAB PO SCH (10:21)
[2016-10-02] MEDS: FERROUS SULFATE 325MG TAB PO SCH (10:21)
[2016-10-02] MEDS: CYCLOBENZAPRINE 5MG TABLET PO SCH ×3 (10:21→21:46)
[2016-10-02] MEDS: amLODIPine 5 MG TAB PO SCH (10:22)
[2016-10-02] MEDS: HumaLOG INSULIN (NovoLOG) PER UNIT SC SCH ×4 (10:22→20:37)
[2016-10-02 14:00] VITALS: BP 128/60
--- NOTE | 2016-10-02 17:20 | IPN ---
DATE: 10/02/2016 SUBJECTIVE: Montse is seen in [address] [place] [address]. We are planning on MRI scans today. Unfortunately, her bariatric condition was beyond the capacity of the open unit that was available there today. She already had been deemed suitable for the permanent unit here. She has pain in the left inguinal area, is unchanged from yesterday. PHYSICAL EXAMINATION: VITAL SIGNS: Blood pressure 120/60, pulse 70 respiratory rate 18, 90% oxygen saturation. GENERAL APPEARANCE: She is lying in bed with her continuous positive airway pressure (CPAP) unit on. LUNGS: Clear. Diffuse breath sounds. HEART: Regular rhythm. ABDOMEN: Soft. Tender in the left inguinal region. Pain to rotate the left hip. LABORATORY DATA: CBC stable. BMP stable. IMAGING: X-rays of hips and femur showed no fracture. CT abdomen and pelvis shows left lateral anterior abdominal hernia containing non-incarcerated small bowel. IMPRESSION: Left inguinal pain. I think it is probably coming from the hernia. I wanted to image her lumbosacral spine and left hip with MRI, but she is beyond the capacity of mobile open MR unit. I had a discussion with Dr. Del Valle. He advised to transfer to [facility] to the bariatric unit. She needs surgical intervention. I think that is reasonable. At this point, she is on Plavix and she does not have emergency surgical condition. It would be advisable to hold this before surgery. Therefore, I am stopping her Plavix today and then I would suggest that Wednesday that someone would reach out to the transfer center at [facility] for transfer to the bariatric unit for evaluation by one of their bariatric surgeons.
[2016-10-02 22:00] VITALS: BP 127/59
[2016-10-03 06:00] VITALS: BP 144/82
[2016-10-03] MEDS: HEPARIN SOD (PORCINE) 5000 UNITS/ML VIAL SC SCH ×3 (06:01→21:10)
[2016-10-03] MEDS: PERCOCET 5MG/325MG TAB PO PRN ×2 (06:30→12:07)
[2016-10-03 06:43] LABS: CALCIUM LEVEL 8.5 MG/DL (8.5-10.1); CREATININE FOR GFR 1.37 MG/DL (0.55-1.02); POTASSIUM SERUM 4.4 MEQ/L (3.5-5.1)
[2016-10-03 06:48] LABS: MEAN CORPUSCULAR HEMOGLOBIN 30.4 pg (27.0-33.0); MEAN CORPUSCULAR HGB CONC 31.9 g/dl (32.0-36.5); MEAN CORPUSCULAR VOLUME 95.3 fl (80.0-96.0); RED CELL DISTRIBUTION WIDTH 13.6 % (11.5-14.5); WHITE BLOOD COUNT 6.8 K/mm3 (4.0-10.0)
[2016-10-03] MEDS: buPROPion **XL** TABLET 150MG (WELLBUTRIN XL) PO SCH (08:33)
[2016-10-03] MEDS: FUROSEMIDE 20 MG TAB PO SCH (08:33)
[2016-10-03] MEDS: FERROUS SULFATE 325MG TAB PO SCH (08:33)
[2016-10-03] MEDS: HumaLOG INSULIN (NovoLOG) PER UNIT SC SCH ×4 (08:33→21:00)
[2016-10-03] MEDS: DULoxetine 30 MG CAP (CYMBALTA) PO SCH (08:34)
[2016-10-03] MEDS: CYCLOBENZAPRINE 5MG TABLET PO SCH ×3 (08:34→21:09)
[2016-10-03] MEDS: amLODIPine 5 MG TAB PO SCH (08:34)
[2016-10-03] MEDS: GABAPENTIN 300 MG CAP PO SCH ×3 (08:34→21:09)
--- NOTE | 2016-10-03 10:10 | IPNPDOC ---
Subjective Date Seen The patient was seen on 10/03/16. Subjective Chief Complaint/HPI The patient is a 61-year-old female admitted with a reason for visit of Left Groin Pain. Events since last encounter Patient states she only has left groin pain when she moves her left leg. At rest, pain is 0/10. Constitutional: Denies: Chills, Fever Pulmonary: Denies: Cough, Dyspnea Cardiovascular: Denies: Chest Pain, Palpitations Gastrointestinal: Denies: Abdominal Pain, Nausea, Vomiting Genitourinary: Reports: Other Symptoms (left groin pain with movement) Musculoskeletal: Denies: Back Pain Neurological: Denies: Numbness, Weakness Psych: Reports: Mood Normal Objective Physical Examination General Exam: Positive: Alert, Cooperative, No Acute Distress, Other (morbid obesity) Eye Exam: Positive: PERRLA ENT Exam: Positive: Atraumatic Chest Exam: Positive: Clear to auscultation, Diminished (throughout) Heart Exam: Positive: Other (heart sounds distant) Abdomen Exam: Positive: Soft, Tenderness (left groin tenderness to palpation) Extremity Exam: Negative: Edema Neuro Exam: Positive: Normal Speech Psych Exam: Positive: Mental status NL, Mood NL, Oriented x 3 Assessment /Plan Problems (1) Left groin pain Status: Acute Problem Specific Plan: Consult Specialist Problem Text: Likely due to hernia seen on CT scan of A/P on 09/30/16. MRI of LS spine and left hip was ordered but could not be done because she is beyond the capacity of the mobile open MRI unit. Dr. Patel discussed with Dr. Del Valle yesterday, who recommended transfer to Bariatric Unit at [facility] for surgical intervention - note from him is pending; once note is available, I will start the transfer process to that she can hopefully go to [facility] on Wednesday. Plavix is being held in anticipation of surgery. - Continue oxycodone/APAP for pain management (2) Morbid obesity Status: Chronic Response to Treatment: Stable (3) DM2 (diabetes mellitus, type 2) Status: Chronic Response to Treatment: Stable Problem Text: Continue SSI with carb consistent diet. (4) HTN (hypertension) Status: Chronic Response to Treatment: Stable Problem Text: Continue amlodipine. (5) History of CVA (cerebrovascular accident) Status: Chronic Response to Treatment: Stable Problem Text: Continue to hold plavix in anticipation of surgery. (6) Depression Status: Chronic Response to Treatment: Stable Problem Text: Continue home duloxetine, wellbutrin, and xanax. (7) Obstructive sleep apnea Status: Chronic Response to Treatment: Stable Problem Text: Continue home Bipap. (8) Asthma Status: Chronic Response to Treatment: Stable Problem Text: Continue nebs PRN. Patient states breathing is at baseline. (9) Iron deficiency anemia Status: Chronic Response to Treatment: Stable Problem Text: Continue ferrous sulfate. Plan/VTE VTE Prophylaxis Ordered?: Yes (heparin) VS, I&O, 24H, Fishbone Vital Signs/I&O Vital Signs Date Time Temp Pulse Resp B/P Pulse Ox O2 Delivery O2 Flow Rate FiO2 10/03/16 08:34 76 144/82 10/03/16 07:34 18 NIPPV (BIPAP/CPAP) 4.0 10/03/16 06:00 97.7 98 I&O- Last 24 Hours up to 6 AM 10/03/16 06:00 Intake Total 630 ml Output Total 1250 ml Balance -620 ml Laboratory Data 24H LABS Laboratory Tests 2 10/02/16 10:00: Bedside Glucose (Misc Panel) 150H 10/02/16 12:13: Bedside Glucose (Misc Panel) 160H 10/02/16 16:53: Bedside Glucose (Misc Panel) 243H 10/02/16 20:11: Bedside Glucose (Misc Panel) 249H 10/03/16 06:01: Anion Gap 6L, C-Reactive Protein, Quantitative 9.14H, Blood Urea Nitrogen 16, Creatinine 1.37H, Sodium Level 140, Potassium Level 4.4, Chloride Level 105, Carbon Dioxide Level 29, Calcium Level 8.5, Glomerular Filtration Rate 42.0L CBC/BMP Laboratory Tests 10/03/16 06:01 Calcium Level 8.5, Red Blood Count 3.38 L, Mean Corpuscular Volume 95.3, Mean Corpuscular Hemoglobin 30.4, Mean Corpuscular Hemoglobin Concent 31.9 L, Red Cell Distribution Width 13.6 Microbiology Microbiology 10/01/16 Urine Culture - Final, Complete Escherichia Coli 10/01/16 Urine Culture - Final, Complete Escherichia Coli SHOLA MORENO MD Oct 03, 2016 10:10
--- NOTE | 2016-10-03 12:44 | CR ---
DATE OF CONSULTATION: 10/01/2016 BRIEF HISTORY OF PRESENT ILLNESS: Patient is a 61-year-old super obese female who presents with a chronic history of a abdominal wall hernia. However, noticed some pressure discomfort throughout the area for over a week now, but developed acute onset of pain, discomfort, and "a pop in the left groin area." Since that time she has not been able to move her leg laterally without severe pain, although while she is laying in bed she has no significant pain or discomfort. She has not had any nausea, no vomiting, no diarrhea. No constipation issues. No blood per rectum. No evidence of gastrointestinal (GI) distress at this time. She has undergone a CAT scan which shows evidence of an abdominal wall hernia, but no evidence of incarcerated small bowel. Once again at this time, her BMI is 77. PAST MEDICAL HISTORY: Significant for: History of insulin-dependent diabetes mellitus. History of super obesity (morbid obesity). History of hyperlipidemia. History of asthma. History of sleep apnea. History of hypertension. History of urinary incontinence. History of angina. History of cervical cancer and endometrial neoplasia. History of iron deficient anemia. History of stroke. History of appendectomy. History of tonsillectomy. MEDICATIONS: Include albuterol, Levaquin, quinapril, Xanax, Colace, duloxetine, vitamin D, iron, Lasix, Xopenex, loratadine, Lopressor, Singulair, niacin, nystatin, Ranexa, tolterodine, Plavix, insulin, Flonase, gabapentin, Benadryl, amlodipine, insulin. PHYSICAL EXAMINATION: Reveals a 61-year-old who looks much older than stated age. HEENT is unremarkable. The patient does not appear to be in any distress while she is lying in bed, not complaining of any abdominal pain. Lungs are clear anteriorly, although with her morbid obesity, I cannot hear her breath sounds very well posteriorly. Heart is distant. Abdomen is obese, nontender, although when I get to the left lower quadrant I can feel her pannus and it is hard to tell if this is pannus or hernia present. I am not able to reduce this area. Although the abdominal wall does not seem to be tender per se; however, movement with her left leg causes significant sharp pain. She has peripheral edema, lymphedema. IMPRESSION AND PLAN: The patient has evidence of an incisional hernia. However, at this point her history with acute onset of severe pain and her difficulty with activity/movement of the left leg suggest that this is much more musculoskeletal in etiology and when I look at the CAT scan on image 177, there is a linear defect, suggesting a possible pelvic fracture. However, this could easily be artifact. Given her morbid obesity the images are quite difficult to interpret. Once again, no evidence of obstruction is seen on the CAT scan and she has no evidence of obstruction clinically The patient has left groin pain of undetermined etiology. The most likely etiology is musculoskeletal given the presentation of this as well as given the exam. However, at this time no evidence is appreciated on her CAT scan, although once again, I am wondering if this is a small fracture and I would recommend follow-up x-rays and would recommend orthopedic evaluation should this show any significant abnormalities or if she has ongoing pain. Unfortunately, given her severe morbid obesity, options for her abdominal wall hernia are very limited. Specifically in this individual, since there is no emergent intervention necessary for this hernia, if she is not referred out to a bariatric surgeon for evaluation/transferred, then I would see how she does with her pain control over the ensuing few days and have her seen as an outpatient if she is discharged to home. Surgically, I do feel that this is out of my scope a practice. Typically I will refer on patient's with a BMI in an elective setting or a nonemergent setting with BMIs over 50. She has a BMI 77, which is clearly outside of this range. More importantly, I do feel that given her morbid obesity, if this is a musculoskeletal injury the amount of pressure and discomfort associated with any activity will be quite significant. However, if she is able to be discharged home, I would refer to bariatrics for elective evaluation of repair of this hernia. I anticipate they would offer her a bypass first and once she has lost weight consider her for operative intervention. Please contact me if you would like further recommendations concerning her care. Otherwise, advancing her diet as tolerated is warranted. If she develops any GI complaints, please also contact me.
[2016-10-03 14:00] VITALS: BP 147/75
[2016-10-03 22:00] VITALS: BP 132/63
[2016-10-04] MEDS: PERCOCET 5MG/325MG TAB PO PRN (04:58)
[2016-10-04] MEDS: HEPARIN SOD (PORCINE) 5000 UNITS/ML VIAL SC SCH ×3 (04:58→21:06)
[2016-10-04 05:55] LABS: MEAN CORPUSCULAR HEMOGLOBIN 29.7 pg (27.0-33.0); MEAN CORPUSCULAR HGB CONC 30.6 g/dl (32.0-36.5); MEAN CORPUSCULAR VOLUME 97.2 fl (80.0-96.0); RED CELL DISTRIBUTION WIDTH 13.6 % (11.5-14.5); WHITE BLOOD COUNT 7.5 K/mm3 (4.0-10.0)
[2016-10-04 06:00] VITALS: BP 112/51
[2016-10-04 06:08] LABS: CALCIUM LEVEL 8.6 MG/DL (8.5-10.1); CREATININE FOR GFR 1.46 MG/DL (0.55-1.02); POTASSIUM SERUM 4.5 MEQ/L (3.5-5.1)
[2016-10-04] MEDS: HumaLOG INSULIN (NovoLOG) PER UNIT SC SCH ×4 (07:30→21:05)
[2016-10-04] MEDS: DULoxetine 30 MG CAP (CYMBALTA) PO SCH (08:05)
[2016-10-04] MEDS: buPROPion **XL** TABLET 150MG (WELLBUTRIN XL) PO SCH (08:05)
[2016-10-04] MEDS: FERROUS SULFATE 325MG TAB PO SCH (08:05)
[2016-10-04] MEDS: GABAPENTIN 300 MG CAP PO SCH ×3 (08:05→21:05)
[2016-10-04] MEDS: CYCLOBENZAPRINE 5MG TABLET PO SCH ×3 (08:06→21:05)
[2016-10-04] MEDS: FUROSEMIDE 20 MG TAB PO SCH (08:06)
[2016-10-04] MEDS: amLODIPine 5 MG TAB PO SCH (08:08)
--- NOTE | 2016-10-04 10:43 | IPNPDOC ---
Subjective Date Seen The patient was seen on 10/04/16. Subjective Chief Complaint/HPI The patient is a 61-year-old female admitted with a reason for visit of Left Groin Pain. Constitutional: Denies: Chills, Fever Pulmonary: Reports: Other Symptoms (wheezing earlier this morning, now resolved with neb), Denies: Cough, Dyspnea Cardiovascular: Denies: Chest Pain, Palpitations Gastrointestinal: Reports: Abdominal Pain (left groin pain), Denies: Nausea, Vomiting Musculoskeletal: Reports: Joint Pain (left hip pain) Neurological: Reports: Weakness (states she cannot stand due to pain in left groin), Denies: Change in speech, Confusion Objective Physical Examination General Exam: Positive: Alert, Cooperative, No Acute Distress, Other (morbid obesity) Eye Exam: Positive: PERRLA ENT Exam: Positive: Atraumatic Chest Exam: Positive: Clear to auscultation, Diminished (throughout) Heart Exam: Positive: Other (heart sounds distant) Abdomen Exam: Positive: Soft, Tenderness (left groin tenderness to palpation) Extremity Exam: Positive: Tenderness (left pelvis and groin are exquisitely tender to palpation; patient states she has severe pain with any movement of left leg; exam limited by pain and body habitus), Negative: Edema Neuro Exam: Positive: Normal Speech Psych Exam: Positive: Mental status NL, Mood NL, Oriented x 3 Assessment /Plan Problems (1) Left groin pain Status: Acute Problem Specific Plan: Consult Specialist Problem Text: 10/04 - Dr. Del Valle's note reviewed, and per that note he believes pain is more likely musculoskeletal; he reports possible left pelvis fracture based on CT of A/P; he recommends outpatient f/u with bariatric surgery. Will get CT of left hip; MRI not possible as below. Consider Ortho consult tomorrow. Continue oxycodone/APAP for pain control. 10/03 - Likely due to hernia seen on CT scan of A/P on 09/30/16. MRI of LS spine and left hip was ordered but could not be done because she is beyond the capacity of the mobile open MRI unit. Dr. Patel discussed with Dr. Del Valle yesterday, who recommended transfer to Bariatric Unit at [facility] for surgical intervention - note from him is pending; once note is available, I will start the transfer process to that she can hopefully go to [facility] on Wednesday. Plavix is being held in anticipation of surgery. - Continue oxycodone/APAP for pain management (2) Morbid obesity Status: Chronic Response to Treatment: Stable (3) DM2 (diabetes mellitus, type 2) Status: Chronic Response to Treatment: Stable Problem Text: Continue SSI with carb consistent diet. (4) HTN (hypertension) Status: Chronic Response to Treatment: Stable Problem Text: Continue amlodipine. (5) History of CVA (cerebrovascular accident) Status: Chronic Response to Treatment: Stable Problem Text: Continue to hold plavix in anticipation of possible need for surgery. (6) Depression Status: Chronic Response to Treatment: Stable Problem Text: Continue home duloxetine, wellbutrin, and xanax. (7) Obstructive sleep apnea Status: Chronic Response to Treatment: Stable Problem Text: Continue home Bipap. (8) Asthma Status: Chronic Response to Treatment: Stable Problem Text: Continue nebs PRN. Patient states breathing is at baseline s/p neb this morning. (9) Iron deficiency anemia Status: Chronic Response to Treatment: Stable Problem Text: Continue ferrous sulfate. Plan/VTE VTE Prophylaxis Ordered?: Yes (heparin) VS, I&O, 24H, Fishbone Vital Signs/I&O Vital Signs Date Time Temp Pulse Resp B/P Pulse Ox O2 Delivery O2 Flow Rate FiO2 10/04/16 08:08 84 137/60 10/04/16 06:00 98.8 18 97 High Flow Cannula 4.0 I&O- Last 24 Hours up to 6 AM 10/04/16 06:00 Intake Total 1200 ml Output Total 1100 ml Balance 100 ml Laboratory Data 24H LABS Laboratory Tests 2 10/03/16 11:49: Bedside Glucose (Misc Panel) 283H 10/03/16 16:39: Bedside Glucose (Misc Panel) 274H 10/03/16 20:14: Bedside Glucose (Misc Panel) 225H 10/04/16 05:30: Anion Gap 6L, Blood Urea Nitrogen 16, Creatinine 1.46H, Sodium Level 142, Potassium Level 4.5, Chloride Level 103, Carbon Dioxide Level 33H, Calcium Level 8.6, Glomerular Filtration Rate 39.0L CBC/BMP Laboratory Tests 10/04/16 05:30 Calcium Level 8.6, Red Blood Count 3.22 L, Mean Corpuscular Volume 97.2 H, Mean Corpuscular Hemoglobin 29.7, Mean Corpuscular Hemoglobin Concent 30.6 L, Red Cell Distribution Width 13.6 Microbiology Microbiology 10/01/16 Urine Culture - Final, Complete Escherichia Coli 10/01/16 Urine Culture - Final, Complete Escherichia Coli SHOLA MORENO MD Oct 04, 2016 10:43
--- NOTE | 2016-10-04 12:44 | REP ---
Clinical: Left hip pain and inability to bear weight. Technique: Axial images through the left hip with coronal and sagittal re-formations. Note: Examination is limited by body habitus and associated technical factors causing ring artifact and decreased signal to noise. Findings: Degenerative changes include increased sclerosis to the acetabular roof and associated joint space narrowing with subtle spurring along the acetabular margin. Very subtle corner fracture along the superior acetabulum cannot definitively be excluded. The visualized proximal femur appears intact and without acute fracture. Surrounding soft tissues without obvious collection/hematoma. Impression: Severely limited examination. No definite acute left hip fracture identified. However subtle injury involving the superior margin of the acetabulum cannot be excluded. Signed by Allen Rojas MD 10/04/2016 12:36 P
[2016-10-04 14:00] VITALS: BP 140/65
[2016-10-04] MEDS: MIRALAX *UNIT DOSE* 17GM PACKET PO PRN (18:49)
[2016-10-04] MEDS: DOCUSATE SODIUM 100 MG CAP PO PRN (18:49)
[2016-10-04] MEDS ORDERED: NITROFURANTOIN (MACROBID) 100 MG CAP PO SCH (21:00)
[2016-10-04] MEDS: BACTRIM 160MG/800MG DS TAB PO SCH (21:05)
[2016-10-04 22:00] VITALS: BP 147/82
[2016-10-05] MEDS: HEPARIN SOD (PORCINE) 5000 UNITS/ML VIAL SC SCH ×3 (05:04→21:04)
[2016-10-05 06:00] VITALS: BP 142/78
[2016-10-05 06:09] LABS: MEAN CORPUSCULAR HEMOGLOBIN 29.2 pg (27.0-33.0); MEAN CORPUSCULAR HGB CONC 30.1 g/dl (32.0-36.5); MEAN CORPUSCULAR VOLUME 96.9 fl (80.0-96.0); RED CELL DISTRIBUTION WIDTH 13.7 % (11.5-14.5); WHITE BLOOD COUNT 8.1 K/mm3 (4.0-10.0)
[2016-10-05 06:19] LABS: CREATININE FOR GFR 1.42 MG/DL (0.55-1.02); GLOMERULAR FILTRATION RATE 40.3 (>51); POTASSIUM SERUM 4.6 MEQ/L (3.5-5.1)
[2016-10-05] MEDS: GABAPENTIN 300 MG CAP PO SCH ×3 (08:55→20:47)
[2016-10-05] MEDS: BACTRIM 160MG/800MG DS TAB PO SCH ×2 (08:55→20:47)
[2016-10-05] MEDS: buPROPion **XL** TABLET 150MG (WELLBUTRIN XL) PO SCH (08:55)
[2016-10-05] MEDS: FUROSEMIDE 20 MG TAB PO SCH (08:56)
[2016-10-05] MEDS: DULoxetine 30 MG CAP (CYMBALTA) PO SCH (08:57)
[2016-10-05] MEDS: CYCLOBENZAPRINE 5MG TABLET PO SCH ×3 (08:57→20:47)
[2016-10-05] MEDS: amLODIPine 5 MG TAB PO SCH (08:57)
[2016-10-05] MEDS: HumaLOG INSULIN (NovoLOG) PER UNIT SC SCH ×4 (08:58→20:49)
[2016-10-05] MEDS: FERROUS SULFATE 325MG TAB PO SCH (08:58)
--- NOTE | 2016-10-05 10:30 | IPNPDOC ---
Subjective Date Seen The patient was seen on 10/05/16. Subjective Chief Complaint/HPI Cont to c/o L hip/groin pain, worse with any movement. Unable to stand and bear weight d/t pain. General: Denies: Fatigue Constitutional: Denies: Chills, Fever Skin: Denies: Lesions, Rash Pulmonary: Denies: Cough, Dyspnea Cardiovascular: Denies: Chest Pain Gastrointestinal: Denies: Nausea, Vomiting Musculoskeletal: Reports: Joint Pain (L hip), Denies: Leg Pain Neurological: Reports: Weakness, Denies: Numbness Psych: Reports: Mood Normal Objective Physical Examination General Exam: Positive: Alert, Cooperative, No Acute Distress, Other (Super obesity) Eye Exam: Positive: PERRLA ENT Exam: Positive: Atraumatic Chest Exam: Positive: Clear to auscultation, Diminished (throughout) Heart Exam: Positive: Other (heart sounds distant), Rate Normal Abdomen Exam: Positive: Soft, Tenderness (left groin tenderness to palpation) Extremity Exam: Positive: Tenderness (left pelvis and groin are exquisitely tender to palpation; patient states she has severe pain with any movement of left leg; exam limited by pain and body habitus), Negative: Edema Neuro Exam: Positive: Normal Speech Psych Exam: Positive: Mental status NL, Mood NL, Oriented x 3 Assessment /Plan Problems (1) Left groin pain Status: Acute Problem Specific Plan: Consult Specialist Problem Text: 10/05 Dr Smith did not favor hip fracture on review of CT, point tender over femoral neck-favor iliopsoas bursitis (pain began as " popping sensation c walking"-allergy to even topical NSAIDs-t/c injection by Pain 10/04 - Dr. Del Valle's note reviewed, and per that note he believes pain is more likely musculoskeletal; he reports possible left pelvis fracture based on CT of A/P; he recommends outpatient f/u with bariatric surgery. Will get CT of left hip; MRI not possible as below. Consider Ortho consult tomorrow. Continue oxycodone/APAP for pain control. 10/03 - Likely due to hernia seen on CT scan of A/P on 09/30/16. MRI of LS spine and left hip was ordered but could not be done because she is beyond the capacity of the mobile open MRI unit. Dr. Patel discussed with Dr. Del Valle yesterday, who recommended transfer to Bariatric Unit at [facility] for surgical intervention - note from him is pending; once note is available, I will start the transfer process to that she can hopefully go to [facility] on Wednesday. Plavix is being held in anticipation of surgery. - Continue oxycodone/APAP for pain management (2) Morbid obesity Status: Chronic Response to Treatment: Stable (3) DM2 (diabetes mellitus, type 2) Status: Chronic Response to Treatment: Stable Problem Text: Continue SSI with carb consistent diet. (4) HTN (hypertension) Status: Chronic Response to Treatment: Stable Problem Text: Continue amlodipine. (5) History of CVA (cerebrovascular accident) Status: Chronic Response to Treatment: Stable Problem Text: Continue to hold plavix in anticipation of possible need for surgery. (6) Depression Status: Chronic Response to Treatment: Stable Problem Text: Continue home duloxetine, wellbutrin, and xanax. (7) Obstructive sleep apnea Status: Chronic Response to Treatment: Stable Problem Text: Continue home Bipap. (8) Asthma Status: Chronic Response to Treatment: Stable Problem Text: Continue nebs PRN. Patient states breathing is at baseline s/p neb this morning. (9) Iron deficiency anemia Status: Chronic Response to Treatment: Stable Problem Text: Continue ferrous sulfate. Plan/VTE VTE Prophylaxis Ordered?: Yes (heparin) VS, I&O, 24H, Fishbone Vital Signs/I&O Vital Signs Date Time Temp Pulse Resp B/P Pulse Ox O2 Delivery O2 Flow Rate FiO2 10/05/16 10:22 Nasal Cannula 4.0 10/05/16 08:57 81 146/67 10/05/16 06:00 97.5 18 92 I&O- Last 24 Hours up to 6 AM 10/05/16 05:59 Intake Total 840 ml Output Total 1300 ml Balance -460 ml Laboratory Data 24H LABS Laboratory Tests 2 10/04/16 12:31: Bedside Glucose (Misc Panel) 274H 10/04/16 16:24: Bedside Glucose (Misc Panel) 324H 10/04/16 20:14: Bedside Glucose (Misc Panel) 325H 10/05/16 05:43: Anion Gap 4L, Blood Urea Nitrogen 18, Creatinine 1.42H, Sodium Level 139, Potassium Level 4.6, Chloride Level 100, Carbon Dioxide Level 35H, Calcium Level 9.0, Glomerular Filtration Rate 40.3L CBC/BMP Laboratory Tests 10/05/16 05:43 Calcium Level 9.0, Red Blood Count 3.36 L, Mean Corpuscular Volume 96.9 H, Mean Corpuscular Hemoglobin 29.2, Mean Corpuscular Hemoglobin Concent 30.1 L, Red Cell Distribution Width 13.7 Microbiology Microbiology 10/01/16 Urine Culture - Final, Complete Escherichia Coli 10/01/16 Urine Culture - Final, Complete Escherichia Coli BONY CACERES PA-C Oct 05, 2016 10:30 Viet Worthy M.D. Oct 05, 2016 16:31
[2016-10-05 14:00] VITALS: BP 133/60
[2016-10-05] MEDS: PERCOCET 5MG/325MG TAB PO PRN ×2 (15:58→21:05)
--- NOTE | 2016-10-05 21:03 | CR ---
DATE OF CONSULTATION: 10/05/2016 REASON FOR CONSULTATION: Left groin pain. HISTORY OF THE PRESENT ILLNESS: The patient has been admitted since 10/01/2016 after standing and pivoting to her wheelchair and feeling a sharp pop into her left groin area. She had quite a bit of pain and soreness and was unable to ambulate and so she has been admitted to the hospital for this, and during the evaluation, she has been seen by Dr. Del Valle, General Surgery, because she was found to have a large abdominal wall hernia off to the left side into her pannus. The relevant history there is that she has severe morbid obesity with a body mass index (BMI) of 77 and she is pending bariatric surgery. She weighs over [address] Del Valle did not feel that there was any infarcted bowel or concern that there is an emergent problem, but mainly has positional pain in the left groin. When she tries to sit upright into a chair, she will get pain, but otherwise she can move around in bed quite comfortably. There is not constant continuous pain. There has been no fevers. Basically what she described is an abduction-type maneuver or external rotation maneuver, she will feel some soreness into her groin but otherwise she is comfortable. She has been extensively evaluated radiographically with a CT scan of her abdomen and pelvis, as well as her left hip and there has been no obvious evidence of an acute fracture, although there is a suggestion that there is a possible abnormal line through the superior aspect of the left acetabulum. There is some degenerative change noted there. The studies are somewhat limited because of her body habitus , but it is not definitive fracture. They tried to get an MR scan on her, but she would not fit in the machine. She is basically at baseline a bed to wheelchair ambulator, does not normally ambulate. She does not complain of any new onset numbness or tingling in her lower extremities, although she has chronic neuropathy she describes in her left leg and foot. She has been afebrile since admission, and her white count has been normal. She did have a bit of an elevated CRP up to 9, possibly associated with a urinary tract infection, which is Escherichia (E) coli, which is pansensitive and that has been treated. PAST MEDICAL HISTORY: Significant for: Insulin-dependent diabetes. Supermorbid obesity. Hyperlipidemia. Asthma. Sleep apnea. Hypertension. Urinary incontinence. Angina. Cervical cancer. History of stroke. Iron deficiency anemia. PAST SURGICAL HISTORY: She has had an appendectomy and tonsillectomy. SOCIAL HISTORY: She does not smoke or drink alcohol. REVIEW OF SYSTEMS: Reviewed from her health survey and notes from the admitting doctor, Dr. Natalee Arriola, DO as well as Dr. Del Valle. HOME MEDICATIONS: - albuterol - Levaquin - quinapril - Xanax - Colace - duloxetine - vitamins - Lasix - Xopenex - loratadine - Lopressor - Singulair - niacin - Nystatin - Ranexa - tolterodine - Plavix - insulin - Flonase - gabapentin - Benadryl - amlodipine FAMILY HISTORY: I know her daughter, she is a patient of mine. She is finishing her medical school. PHYSICAL EXAMINATION: When I examined her, she is a pleasant but severely morbidly obese female lying in her bed. She actually can roll around in her bed actually quite comfortably. She has a very large pannus that covers the left groin. There is no marked irritability when I move that hip, as if it is a markedly irritable or synovitic hip, but she just describes to me when she gets that intermittent sharp pain, it prevents her from getting into her wheelchair or to pivot to the commode. Distally, she has a good pulse in her foot. She can move her ankle up and down. There is some decreased sensation diffusely, which she describes as due to her chronic anemia, but her right lower extremity has normal sensation. There is no motor loss distally. Her laboratory studies as described above are otherwise unremarkable and her x-rays were reviewed extensively. There may be a small line in the superior dome of the acetabulum seen on her CT scan of the hip and of the abdomen and pelvis, but the plain films are unremarkable. IMPRESSION: She had left hip pain, seems to be mechanical related to weightbearing. There has been no fall. There is some underlying arthritis. It is possible she sprained her arthritic hip or has subluxed a tendon in front of the hip, such as a rectus femoris or iliopsoas, or it simply could be arthritic hip has been sprained. I think it is very low likely that this is an actual fracture , but I think we should just treat this symptomatically for the time being and possibly repeat the CT scan in a few days if her symptoms do not show any improvement to be sure that there is no displaced fracture that may develop. Ideally, she would benefit from MRI evaluation of her left hip area, but unfortunately, that is not possible with the MRI scanner we have here at [facility]. Otherwise, bed to wheelchair ambulation as comfort allows, and we will just continue to follow her for the time being. KINA
[2016-10-05 22:00] VITALS: BP 124/77
[2016-10-06] MEDS: HEPARIN SOD (PORCINE) 5000 UNITS/ML VIAL SC SCH ×4 (05:04→21:45)
[2016-10-06] MEDS: PERCOCET 5MG/325MG TAB PO PRN ×4 (05:04→23:49)
[2016-10-06 06:00] VITALS: BP 132/63
[2016-10-06 07:01] LABS: MEAN CORPUSCULAR HEMOGLOBIN 29.7 pg (27.0-33.0); MEAN CORPUSCULAR HGB CONC 30.8 g/dl (32.0-36.5); MEAN CORPUSCULAR VOLUME 96.5 fl (80.0-96.0); RED CELL DISTRIBUTION WIDTH 13.8 % (11.5-14.5); WHITE BLOOD COUNT 6.6 K/mm3 (4.0-10.0)
[2016-10-06 07:29] LABS: CALCIUM LEVEL 9.1 MG/DL (8.5-10.1); CREATININE FOR GFR 1.69 MG/DL (0.55-1.02); POTASSIUM SERUM 4.4 MEQ/L (3.5-5.1)
[2016-10-06] MEDS: HumaLOG INSULIN (NovoLOG) PER UNIT SC SCH ×4 (08:24→21:46)
[2016-10-06] MEDS: CYCLOBENZAPRINE 5MG TABLET PO SCH ×3 (08:25→21:45)
[2016-10-06] MEDS: NYSTATIN 100,000 UNITS/GM TOPICAL PWD 15 GM TOP PRN (08:25)
[2016-10-06] MEDS: DULoxetine 30 MG CAP (CYMBALTA) PO SCH (08:25)
[2016-10-06] MEDS: GABAPENTIN 300 MG CAP PO SCH ×3 (08:25→21:45)
[2016-10-06] MEDS: BACTRIM 160MG/800MG DS TAB PO SCH ×2 (08:25→21:45)
[2016-10-06] MEDS: FERROUS SULFATE 325MG TAB PO SCH (08:25)
[2016-10-06] MEDS: amLODIPine 5 MG TAB PO SCH (08:25)
[2016-10-06] MEDS: FUROSEMIDE 20 MG TAB PO SCH (08:26)
[2016-10-06] MEDS: buPROPion **XL** TABLET 150MG (WELLBUTRIN XL) PO SCH (08:26)
--- NOTE | 2016-10-06 10:23 | IPNPDOC ---
Subjective Date Seen The patient was seen on 10/06/16. Subjective Chief Complaint/HPI Pt cont to have pain with lateral rotation of her left leg. She is also unable to bear weight on her L left and due to her size therefor hasn't been able to get up out of bed into her W/C. General: Denies: Fatigue Constitutional: Denies: Chills, Fever Pulmonary: Denies: Cough, Dyspnea Cardiovascular: Denies: Chest Pain, Palpitations Gastrointestinal: Denies: Diarrhea, Nausea Musculoskeletal: Reports: Back Pain (chronic), Leg Pain (upper L leg, groin) Neurological: Reports: Weakness Psych: Reports: Mood Normal Objective Physical Examination General Exam: Positive: Alert, Cooperative, No Acute Distress, Other (Super obesity) Eye Exam: Positive: PERRLA ENT Exam: Positive: Atraumatic Chest Exam: Positive: Clear to auscultation, Diminished (throughout) Heart Exam: Positive: Other (heart sounds distant), Rate Normal Abdomen Exam: Positive: Soft, Tenderness (left groin tenderness to palpation) Extremity Exam: Positive: Tenderness (left pelvis and groin are exquisitely tender to palpation; patient states she has severe pain with any movement of left leg; exam limited by pain and body habitus), Negative: Edema Neuro Exam: Positive: Normal Speech Psych Exam: Positive: Mental status NL, Mood NL, Oriented x 3 Assessment /Plan Problems (1) Left groin pain Status: Acute Problem Specific Plan: Consult Specialist Problem Text: 10/06 - Per Ortho Consult note, recommended out of bed to W/C which is pt baseline, she doesn't feel she will be able to tolerate this. Consider Pain Mgmt Consult, will address with attending. 10/05 Dr Smith did not favor hip fracture on review of CT, point tender over femoral neck-favor iliopsoas bursitis (pain began as "popping sensation c walking"-allergy to even topical NSAIDs-t/c injection by Pain 10/04 - Dr. Del Valle's note reviewed, and per that note he believes pain is more likely musculoskeletal; he reports possible left pelvis fracture based on CT of A/P; he recommends outpatient f/u with bariatric surgery. Will get CT of left hip; MRI not possible as below. Consider Ortho consult tomorrow. Continue oxycodone/APAP for pain control. 10/03 - Likely due to hernia seen on CT scan of A/P on 09/30/16. MRI of LS spine and left hip was ordered but could not be done because she is beyond the capacity of the mobile open MRI unit. Dr. Patel discussed with Dr. Del Valle yesterday, who recommended transfer to Bariatric Unit at [facility] for surgical intervention - note from him is pending; once note is available, I will start the transfer process to that she can hopefully go to [facility] on Wednesday. Plavix is being held in anticipation of surgery. - Continue oxycodone/APAP for pain management (2) Morbid obesity Status: Chronic Response to Treatment: Stable (3) DM2 (diabetes mellitus, type 2) Status: Chronic Response to Treatment: Stable Problem Text: 10/06 - FSBS consistently in the 350s, will add levemir to SSI. Usually on Toujeo 150 mg BID and Humalog 50/50 90 units TID 10/05 Continue SSI with carb consistent diet. (4) HTN (hypertension) Status: Chronic Response to Treatment: Stable Problem Text: Continue amlodipine. (5) History of CVA (cerebrovascular accident) Status: Chronic Response to Treatment: Stable Problem Text: Continue to hold plavix in anticipation of possible need for surgery. (6) Depression Status: Chronic Response to Treatment: Stable Problem Text: Continue home duloxetine, wellbutrin, and xanax. (7) Obstructive sleep apnea Status: Chronic Response to Treatment: Stable Problem Text: Continue home Bipap. (8) Asthma Status: Chronic Response to Treatment: Stable Problem Text: Continue nebs PRN. Patient states breathing is at baseline s/p neb this morning. (9) Iron deficiency anemia Status: Chronic Response to Treatment: Stable Problem Text: Continue ferrous sulfate. Plan/VTE VTE Prophylaxis Ordered?: Yes (heparin) VS, I&O, 24H, Fishbone Vital Signs/I&O Vital Signs Date Time Temp Pulse Resp B/P Pulse Ox O2 Delivery O2 Flow Rate FiO2 10/06/16 09:42 Nasal Cannula 4.0 10/06/16 08:25 81 132/63 10/06/16 06:00 98.5 18 97 I&O- Last 24 Hours up to 6 AM 10/06/16 06:00 Intake Total 1750 ml Output Total 2250 ml Balance -500 ml Laboratory Data 24H LABS Laboratory Tests 2 10/05/16 11:21: Bedside Glucose (Misc Panel) 325H 10/05/16 16:34: Bedside Glucose (Misc Panel) 375H 10/05/16 20:42: Bedside Glucose (Misc Panel) 351H 10/06/16 06:41: Anion Gap 4L, Blood Urea Nitrogen 25H, Creatinine 1.69H, Sodium Level 138, Potassium Level 4.4, Chloride Level 99, Carbon Dioxide Level 35H, Calcium Level 9.1, Glomerular Filtration Rate 33.0L 10/06/16 06:51: Bedside Glucose (Misc Panel) 343H CBC/BMP Laboratory Tests 10/06/16 06:41 Calcium Level 9.1, Red Blood Count 3.25 L, Mean Corpuscular Volume 96.5 H, Mean Corpuscular Hemoglobin 29.7, Mean Corpuscular Hemoglobin Concent 30.8 L, Red Cell Distribution Width 13.8 Microbiology Microbiology 10/01/16 Urine Culture - Final, Complete Escherichia Coli 10/01/16 Urine Culture - Final, Complete Escherichia Coli BONY CACERES PA-C Oct 06, 2016 10:23
[2016-10-06 14:00] VITALS: BP 136/65
[2016-10-06] MEDS: MIRALAX *UNIT DOSE* 17GM PACKET PO PRN (15:59)
[2016-10-06] MEDS: LEVEMIR (INSULIN DETEMIR) 1 UNITS/0.01ML SC SCH (21:46)
[2016-10-06 22:00] VITALS: BP 127/67
[2016-10-07] MEDS: HEPARIN SOD (PORCINE) 5000 UNITS/ML VIAL SC SCH ×3 (05:18→22:14)
[2016-10-07] MEDS: PERCOCET 5MG/325MG TAB PO PRN ×4 (05:19→22:13)
[2016-10-07 06:00] VITALS: BP 126/68
[2016-10-07 07:13] LABS: MEAN CORPUSCULAR HEMOGLOBIN 29.3 pg (27.0-33.0); MEAN CORPUSCULAR HGB CONC 30.6 g/dl (32.0-36.5); MEAN CORPUSCULAR VOLUME 95.8 fl (80.0-96.0); RED CELL DISTRIBUTION WIDTH 13.6 % (11.5-14.5)
[2016-10-07 07:37] LABS: CALCIUM LEVEL 9.1 MG/DL (8.5-10.1); CREATININE FOR GFR 1.71 MG/DL (0.55-1.02); GLOMERULAR FILTRATION RATE 32.5 (>51); POTASSIUM SERUM 4.3 MEQ/L (3.5-5.1)
[2016-10-07] MEDS: buPROPion **XL** TABLET 150MG (WELLBUTRIN XL) PO SCH (08:37)
[2016-10-07] MEDS: CYCLOBENZAPRINE 5MG TABLET PO SCH ×3 (08:38→22:14)
[2016-10-07] MEDS: GABAPENTIN 300 MG CAP PO SCH ×3 (08:38→22:13)
[2016-10-07] MEDS: amLODIPine 5 MG TAB PO SCH (08:38)
[2016-10-07] MEDS: FERROUS SULFATE 325MG TAB PO SCH (08:38)
[2016-10-07] MEDS: DULoxetine 30 MG CAP (CYMBALTA) PO SCH (08:38)
[2016-10-07] MEDS: FUROSEMIDE 20 MG TAB PO SCH (08:38)
[2016-10-07] MEDS: BACTRIM 160MG/800MG DS TAB PO SCH (08:38)
[2016-10-07] MEDS: HumaLOG INSULIN (NovoLOG) PER UNIT SC SCH ×4 (08:39→22:15)
[2016-10-07 14:00] VITALS: BP 144/93
--- NOTE | 2016-10-07 14:23 | IPN ---
DATE: 10/07/2016 Montse got up and to the edge of the bed today. She still has severe pain in her left inguinal region, left hip and inner thigh. She had a CT of her left hip, but it was severely limited, could not rule out a subtle injury involving the superior margin of the acetabulum. Examination is unchanged. IMPRESSION: Intractable left groin pain. I have a message out to Dr. August Rivera of the orthopedic group. Her size and weight prevent her from having a MRI scan here. CT of her hip was of limited quality. I have a message out for Dr. Rivera to call me. If he feels that she needs MRI scan of the lumbosacral spine and left hip, I will approach [facility] to transfer the patient there. They also have capability for bariatric safety with physical therapy (PT), which we lack here. I am waiting for his reply before calling the transfer center there.
[2016-10-07 22:00] VITALS: BP 147/64
[2016-10-07] MEDS: LEVEMIR (INSULIN DETEMIR) 1 UNITS/0.01ML SC SCH (22:14)
[2016-10-08] MEDS: PERCOCET 5MG/325MG TAB PO PRN ×3 (03:29→21:08)
[2016-10-08] MEDS: HEPARIN SOD (PORCINE) 5000 UNITS/ML VIAL SC SCH ×3 (05:36→21:10)
[2016-10-08 06:00] VITALS: BP 139/66
[2016-10-08 06:37] LABS: MEAN CORPUSCULAR HEMOGLOBIN 29.7 pg (27.0-33.0); MEAN CORPUSCULAR VOLUME 95.8 fl (80.0-96.0); RED CELL DISTRIBUTION WIDTH 13.6 % (11.5-14.5); WHITE BLOOD COUNT 6.2 K/mm3 (4.0-10.0)
[2016-10-08 06:48] LABS: CALCIUM LEVEL 8.9 MG/DL (8.5-10.1); CREATININE FOR GFR 1.94 MG/DL (0.55-1.02); GLOMERULAR FILTRATION RATE 28.1 (>51); POTASSIUM SERUM 4.5 MEQ/L (3.5-5.1)
[2016-10-08] MEDS: DULoxetine 30 MG CAP (CYMBALTA) PO SCH (09:47)
[2016-10-08] MEDS: FERROUS SULFATE 325MG TAB PO SCH (09:47)
[2016-10-08] MEDS: GABAPENTIN 300 MG CAP PO SCH ×3 (09:47→21:07)
[2016-10-08] MEDS: FUROSEMIDE 20 MG TAB PO SCH (09:47)
[2016-10-08] MEDS: buPROPion **XL** TABLET 150MG (WELLBUTRIN XL) PO SCH (09:47)
[2016-10-08] MEDS: CYCLOBENZAPRINE 5MG TABLET PO SCH ×3 (09:47→21:07)
[2016-10-08] MEDS: amLODIPine 5 MG TAB PO SCH (09:47)
[2016-10-08] MEDS: HumaLOG INSULIN (NovoLOG) PER UNIT SC SCH ×4 (09:48→21:09)
--- NOTE | 2016-10-08 10:40 | IPNPDOC ---
Subjective Date Seen The patient was seen on 10/08/16. Subjective Chief Complaint/HPI Pt continues to remain discouraged with her persistent pain and inability to have a definitive answer/plan. General: Denies: Fatigue Constitutional: Denies: Chills, Fever ENT: Denies: Head Aches Pulmonary: Denies: Cough, Dyspnea Cardiovascular: Denies: Chest Pain, Palpitations Gastrointestinal: Denies: Diarrhea, Nausea, Vomiting Musculoskeletal: Reports: Leg Pain Psych: Reports: Mood Normal Objective Physical Examination General Exam: Positive: Alert, Cooperative, No Acute Distress, Other (Super obesity) ENT Exam: Positive: Atraumatic Chest Exam: Positive: Clear to auscultation, Diminished (throughout) Heart Exam: Positive: Other (heart sounds distant), Rate Normal Abdomen Exam: Positive: Soft, Tenderness (left groin tenderness to palpation) Extremity Exam: Positive: Tenderness (left pelvis and groin are exquisitely tender to palpation; patient states she has severe pain with any movement of left leg; exam limited by pain and body habitus), Negative: Edema Neuro Exam: Positive: Normal Speech Psych Exam: Positive: Mental status NL, Mood NL, Oriented x 3 Assessment /Plan Problems (1) Left groin pain Status: Acute Problem Specific Plan: Consult Specialist Problem Text: 10/08 - Await input from attending, likely will need transfer to [facility], we don't have more to offer her here d/t her size. She probably really should have an MRI, we also don't have the means to safely offer her PT. 10/06 - Per Ortho Consult note, recommended out of bed to W/C which is pt baseline , she doesn't feel she will be able to tolerate this. Consider Pain Mgmt Consult , will address with attending. 10/05 Dr Smith did not favor hip fracture on review of CT, point tender over femoral neck-favor iliopsoas bursitis (pain began as "popping sensation c walking"-allergy to even topical NSAIDs-t/c injection by Pain 10/04 - Dr. Del Valle's note reviewed, and per that note he believes pain is more likely musculoskeletal; he reports possible left pelvis fracture based on CT of A/P; he recommends outpatient f/u with bariatric surgery. Will get CT of left hip; MRI not possible as below. Consider Ortho consult tomorrow. Continue oxycodone/APAP for pain control. 10/03 - Likely due to hernia seen on CT scan of A/P on 09/30/16. MRI of LS spine and left hip was ordered but could not be done because she is beyond the capacity of the mobile open MRI unit. Dr. Patel discussed with Dr. Del Valle yesterday, who recommended transfer to Bariatric Unit at [facility] [place] for surgical intervention - note from him is pending; once note is available, I will start the transfer process to that she can hopefully go to [facility] [place] on Wednesday. Plavix is being held in anticipation of surgery. - Continue oxycodone/APAP for pain management (2) Morbid obesity Status: Chronic Response to Treatment: Stable (3) DM2 (diabetes mellitus, type 2) Status: Chronic Response to Treatment: Stable Problem Text: 10/06 - FSBS consistently in the 350s, will add levemir to SSI. Usually on Toujeo 150 mg BID and Humalog 50/50 90 units TID 10/05 Continue SSI with carb consistent diet. (4) HTN (hypertension) Status: Chronic Response to Treatment: Stable Problem Text: Continue amlodipine. (5) History of CVA (cerebrovascular accident) Status: Chronic Response to Treatment: Stable Problem Text: Continue to hold plavix in anticipation of possible need for surgery. (6) Depression Status: Chronic Response to Treatment: Stable Problem Text: Continue home duloxetine, wellbutrin, and xanax. (7) Obstructive sleep apnea Status: Chronic Response to Treatment: Stable Problem Text: Continue home Bipap. (8) Asthma Status: Chronic Response to Treatment: Stable Problem Text: Continue nebs PRN. Patient states breathing is at baseline s/p neb this morning. (9) Iron deficiency anemia Status: Chronic Response to Treatment: Stable Problem Text: Continue ferrous sulfate. Plan/VTE VTE Prophylaxis Ordered?: Yes (heparin) VS, I&O, 24H, Fishbone Vital Signs/I&O Vital Signs Date Time Temp Pulse Resp B/P Pulse Ox O2 Delivery O2 Flow Rate FiO2 10/08/16 09:48 18 10/08/16 06:00 97.5 87 139/66 96 Nasal Cannula 4.0 I&O- Last 24 Hours up to 6 AM 10/08/16 06:00 Intake Total 660 ml Output Total 1750 ml Balance -1090 ml Laboratory Data 24H LABS Laboratory Tests 2 10/07/16 11:28: Bedside Glucose (Misc Panel) 319H 10/07/16 16:31: Bedside Glucose (Misc Panel) 529*H 10/07/16 17:11: Bedside Glucose Confirm (Misc) 420*H 10/07/16 21:39: Bedside Glucose (Misc Panel) 417H 10/08/16 06:18: Anion Gap 6L, Blood Urea Nitrogen 27H, Creatinine 1.94H, Sodium Level 135L, Potassium Level 4.5, Chloride Level 97L, Carbon Dioxide Level 32, Calcium Level 8.9, Glomerular Filtration Rate 28.1L CBC/BMP Laboratory Tests 10/08/16 06:18 Calcium Level 8.9 10/08/16 06:19 Red Blood Count 3.26 L, Mean Corpuscular Volume 95.8, Mean Corpuscular Hemoglobin 29.7, Mean Corpuscular Hemoglobin Concent 31.0 L, Red Cell Distribution Width 13.6 Microbiology Microbiology 10/01/16 Urine Culture - Final, Complete Escherichia Coli 10/01/16 Urine Culture - Final, Complete Escherichia Coli BONY CACERES PA-C Oct 08, 2016 10:40
--- NOTE | 2016-10-08 12:02 | DSES ---
DATE OF ADMISSION: 10/01/2016 DATE OF DISCHARGE: PRINCIPAL DIAGNOSIS: Intractable left hip pain/groin pain, etiology unknown. SECONDARY DIAGNOSES: 1. Weight in excess of 450 pounds, unable to image at [facility] MRI facility. 2. Type 2 diabetes, now requiring insulin. 3. Hyperlipidemia. 4. Sleep apnea on bilevel positive airway pressure (BIPAP). 5. Asthma. 6. Hypertension. 7. History of iron deficiency anemia. HISTORY: Montse Chaudhry was admitted with inability to get out of bed. She has intractable inguinal pain, started to have low back pain and then developed pain in her left hip and left inguinal/groin area, worse with any kind of body movement. Her functional status is poor, essentially getting out of bed, getting to the commode, and back to bed, but she could not even move her leg in bed and so she was brought to the emergency room. Details of her history and physical per admission. HOSPITALIZATION COURSE: The patient was seen in consultation from surgery. She had a CT scan of the abdomen and pelvis that showed a left sided anterior abdominal hernia containing non incarcerated small bowel. Dr. Del Valle from surgery did not feel that the hernia was the source of her pain. She was seen in consultation by Dr. August Rivera from orthopedic group. Various imaging modalities were attempted, including plain films, as well as CT scan. The CT scan was severely limited, no obvious fracture was seen, but there was a subtle injury involved in the superior margin of the acetabulum that required further evaluation. We tried to do a MRI scan at the [facility] facility but her size precluded this. Open MRI scanner came last week and she was too big for that unit as well. We called down to [facility] and they do have a MRI unit that can accommodate her. I communicated directly with Dr. August Rivera from the orthopedic group last night. He reaffirmed that he feels the patient would benefit by MRI imaging to determine if there is some fracture present not currently being determined by suboptimal imaging, whether there is an acetabular injury or soft tissue injury. I called [facility] and they are making arrangements to try to find a bed for her. Urine culture grew out just 10,000 Escherichia (E) coli and not a pathological number of E coli. Most recent white count is 6.2, hemoglobin 9.7, which is chronic. Platelets 268, sodium 135, potassium 4.5, BUN 27, creatinine 1.94, glucose has been as high as 500 and as low as 52. Insulin doses were adjusted today. PLAN: We are waiting for transfer to [facility]. I do not have an accepting physician as there is no bed yet. I did communicate with the transfer center today. Charge nurse is aware of the pending transfer.
[2016-10-08 14:00] VITALS: BP 135/61
[2016-10-08 20:25] VITALS: BP 136/85
[2016-10-08] MEDS ORDERED: LEVEMIR (INSULIN DETEMIR) 1 UNITS/0.01ML SC SCH (21:00)
[2016-10-08] MEDS: MIRALAX *UNIT DOSE* 17GM PACKET PO PRN (21:07)
[2016-10-09 06:20] VITALS: BP 149/67
[2016-10-09] MEDS: HEPARIN SOD (PORCINE) 5000 UNITS/ML VIAL SC SCH ×3 (06:20→21:28)
[2016-10-09 06:56] LABS: CREATININE FOR GFR 1.76 MG/DL (0.55-1.02); GLOMERULAR FILTRATION RATE 31.5 (>51); POTASSIUM SERUM 4.7 MEQ/L (3.5-5.1)
[2016-10-09] MEDS: HumaLOG INSULIN (NovoLOG) PER UNIT SC SCH ×3 (08:30→17:17)
[2016-10-09] MEDS: GABAPENTIN 300 MG CAP PO SCH ×3 (08:30→21:19)
[2016-10-09] MEDS: amLODIPine 5 MG TAB PO SCH (08:31)
[2016-10-09] MEDS: DULoxetine 30 MG CAP (CYMBALTA) PO SCH (08:31)
[2016-10-09] MEDS: FERROUS SULFATE 325MG TAB PO SCH (08:31)
[2016-10-09] MEDS: FUROSEMIDE 20 MG TAB PO SCH (08:31)
[2016-10-09] MEDS: CYCLOBENZAPRINE 5MG TABLET PO SCH ×3 (08:31→21:19)
[2016-10-09] MEDS: buPROPion **XL** TABLET 150MG (WELLBUTRIN XL) PO SCH (08:48)
[2016-10-09] MEDS: PERCOCET 5MG/325MG TAB PO PRN ×2 (09:52→21:20)
--- NOTE | 2016-10-09 10:54 | IPNPDOC ---
Subjective Date Seen The patient was seen on 10/09/16. Subjective Chief Complaint/HPI The patient is a 61-year-old female admitted with a reason for visit of Left Groin Pain. Events since last encounter Pt without new concerns. Her dgt is at her bedside this morning and OT is working with her. She is sitting up on the edge of the bed. She c/o the rash on her neck that is foul smelling, wants to know if there is anyuthing that can be done with the smell. General: Reports: Fatigue Constitutional: Denies: Chills, Fever Skin: Reports: Rash Pulmonary: Denies: Cough, Dyspnea Cardiovascular: Denies: Chest Pain, Palpitations Gastrointestinal: Denies: Nausea, Vomiting Genitourinary: Denies: Dysuria Musculoskeletal: Reports: Leg Pain Neurological: Reports: Weakness Psych: Reports: Mood Normal Objective Physical Examination General Exam: Positive: Alert, Cooperative, No Acute Distress, Other (Super obesity) ENT Exam: Positive: Atraumatic Chest Exam: Positive: Clear to auscultation, Diminished (throughout) Heart Exam: Positive: Other (heart sounds distant), Rate Normal Abdomen Exam: Positive: Soft, Tenderness (left groin tenderness to palpation) Extremity Exam: Positive: Tenderness (left pelvis and groin are exquisitely tender to palpation; patient states she has severe pain with any movement of left leg; exam limited by pain and body habitus), Negative: Edema Skin Exam: Positive: Rash (skin folds of the neck) Neuro Exam: Positive: Normal Speech Psych Exam: Positive: Mental status NL, Mood NL, Oriented x 3 Assessment /Plan Problems (1) Left groin pain Status: Acute Problem Specific Plan: Consult Specialist Problem Text: 10/09 - [facility] transfer [place] contacted yesterday for transfer, Nursing has been in touch this morning, awaiting a bed, and accepting physician. Pt is aware. 10/08 - Await input from attending, likely will need transfer to [facility]ariat[facility] [place], we don't have more to offer her here d/t her size. She probably really should have an MRI, we also don't have the means to safely offer her PT. 10/06 - Per Ortho Consult note, recommended out of bed to W/C which is pt baseline , she doesn't feel she will be able to tolerate this. Consider Pain Mgmt Consult , will address with attending. 10/05 Dr Smith did not favor hip fracture on review of CT, point tender over femoral neck-favor iliopsoas bursitis (pain began as "popping sensation c walking"-allergy to even topical NSAIDs-t/c injection by Pain 10/04 - Dr. Del Valle's note reviewed, and per that note he believes pain is more likely musculoskeletal; he reports possible left pelvis fracture based on CT of A/P; he recommends outpatient f/u with bariatric surgery. Will get CT of left hip; MRI not possible as below. Consider Ortho consult tomorrow. Continue oxycodone/APAP for pain control. 10/03 - Likely due to hernia seen on CT scan of A/P on 09/30/16. MRI of LS spine and left hip was ordered but could not be done because she is beyond the capacity of the mobile open MRI unit. Dr. Patel discussed with Dr. Del Valle yesterday, who recommended transfer to Bariatric Unit at [facility] for surgical intervention - note from him is pending; once note is available, I will start the transfer process to that she can hopefully go to [facility] on Wednesday. Plavix is being held in anticipation of surgery. - Continue oxycodone/APAP for pain management (2) Morbid obesity Status: Chronic Response to Treatment: Stable (3) DM2 (diabetes mellitus, type 2) Status: Chronic Response to Treatment: Stable Problem Text: 10/09 - will increase Levemir today. 10/06 - FSBS consistently in the 350s, will add levemir to SSI. Usually on Toujeo 150 mg BID and Humalog 50/50 90 units TID 10/05 Continue SSI with carb consistent diet. (4) HTN (hypertension) Status: Chronic Response to Treatment: Stable Problem Text: Continue amlodipine. (5) History of CVA (cerebrovascular accident) Status: Chronic Response to Treatment: Stable Problem Text: Continue to hold plavix in anticipation of possible need for surgery. (6) Depression Status: Chronic Response to Treatment: Stable Problem Text: Continue home duloxetine, wellbutrin, and xanax. (7) Obstructive sleep apnea Status: Chronic Response to Treatment: Stable Problem Text: Continue home Bipap. (8) Asthma Status: Chronic Response to Treatment: Stable Problem Text: Continue nebs PRN. Patient states breathing is at baseline s/p neb this morning. (9) Iron deficiency anemia Status: Chronic Response to Treatment: Stable Problem Text: Continue ferrous sulfate. Plan/VTE VTE Prophylaxis Ordered?: Yes (heparin) VS, I&O, 24H, Fishbone Vital Signs/I&O Vital Signs Date Time Temp Pulse Resp B/P Pulse Ox O2 Delivery O2 Flow Rate FiO2 10/09/16 10:22 18 10/09/16 09:52 High Flow Cannula 4.0 10/09/16 08:31 83 149/67 10/09/16 06:20 98.7 97 I&O- Last 24 Hours up to 6 AM 10/09/16 06:00 Intake Total 480 ml Output Total 1550 ml Balance -1070 ml Laboratory Data 24H LABS Laboratory Tests 2 10/08/16 11:57: Bedside Glucose (Misc Panel) 385H 10/08/16 16:25: Bedside Glucose (Misc Panel) 457H 10/08/16 20:27: Bedside Glucose (Misc Panel) 465H 10/09/16 06:17: Anion Gap 7L, Blood Urea Nitrogen 28H, Creatinine 1.76H, Sodium Level 132L, Potassium Level 4.7, Chloride Level 98, Carbon Dioxide Level 27, Calcium Level 9.0, Glomerular Filtration Rate 31.5L CBC/BMP Laboratory Tests 10/09/16 06:17 Calcium Level 9.0 Microbiology Microbiology 10/01/16 Urine Culture - Final, Complete Escherichia Coli 10/01/16 Urine Culture - Final, Complete Escherichia Coli BONY CACERES PA-C Oct 09, 2016 10:54
[2016-10-09 14:00] VITALS: BP 140/66
[2016-10-09 20:35] VITALS: BP 137/62
[2016-10-09] MEDS ORDERED: LEVEMIR (INSULIN DETEMIR) 1 UNITS/0.01ML SC SCH ×2 (21:00)
[2016-10-09] MEDS: TOUJEO SC SCH (21:25)
[2016-10-09] MEDS: HUMULIN R U SC SCH (21:28)
[2016-10-10] MEDS: HEPARIN SOD (PORCINE) 5000 UNITS/ML VIAL SC SCH ×3 (05:44→21:43)
[2016-10-10 06:14] LABS: CALCIUM LEVEL 9.3 MG/DL (8.5-10.1); CREATININE FOR GFR 1.88 MG/DL (0.55-1.02); GLOMERULAR FILTRATION RATE 29.2 (>51); POTASSIUM SERUM 4.6 MEQ/L (3.5-5.1)
[2016-10-10 07:00] VITALS: BP 146/68
[2016-10-10] MEDS: CYCLOBENZAPRINE 5MG TABLET PO SCH ×3 (08:10→21:43)
[2016-10-10] MEDS: GABAPENTIN 300 MG CAP PO SCH ×3 (08:10→21:43)
[2016-10-10] MEDS: amLODIPine 5 MG TAB PO SCH (08:11)
[2016-10-10] MEDS: buPROPion **XL** TABLET 150MG (WELLBUTRIN XL) PO SCH (08:11)
[2016-10-10] MEDS: FERROUS SULFATE 325MG TAB PO SCH (08:11)
[2016-10-10] MEDS: FUROSEMIDE 20 MG TAB PO SCH (08:11)
[2016-10-10] MEDS: DULoxetine 30 MG CAP (CYMBALTA) PO SCH (08:11)
[2016-10-10] MEDS: HUMULIN R U SC SCH ×2 (08:12→17:24)
[2016-10-10] MEDS: TOUJEO SC SCH ×2 (08:13→21:44)
[2016-10-10 14:00] VITALS: BP 122/56
--- NOTE | 2016-10-10 16:37 | IPNPDOC ---
Subjective Date Seen The patient was seen on 10/10/16. Subjective Chief Complaint/HPI The patient is a 61-year-old female admitted with a reason for visit of Left Groin Pain. Events since last encounter Patient reports that she is doing well. She continues to have severe left groin pain, 8 out of 10, if abducting her hip at all. She states that she has difficulty transferring, and can only stand for about 50 seconds with physical therapy. She denies any fevers, chills, sweats, or worsening hip pain. She has no other complaints or concerns. Constitutional: Denies: Chills, Fever, Malaise ENT: Denies: Head Aches Pulmonary: Denies: Cough, Dyspnea Cardiovascular: Denies: Chest Pain, Palpitations Gastrointestinal: Denies: Abdominal Pain, Constipation, Diarrhea, Nausea, Vomiting Genitourinary: Denies: Dysuria, Frequency Musculoskeletal: Reports: Joint Pain (right hip) Other systems 10 point review systems otherwise negative Objective Physical Examination General Exam: Positive: Alert, Cooperative, No Acute Distress, Other (morbidly obese with BMI of 75) ENT Exam: Positive: Atraumatic Chest Exam: Positive: Clear to auscultation, Diminished (throughout), Negative: Rales, Rhonchi, Wheezing Heart Exam: Positive: Normal S1, Normal S2, Other (heart sounds distant), Rate Normal Abdomen Exam: Positive: Soft, Negative: Tenderness Extremity Exam: Negative: Edema, Tenderness Skin Exam: Negative: Rash Neuro Exam: Positive: Normal Speech Psych Exam: Positive: Mental status NL, Mood NL, Oriented x 3 Assessment /Plan Problems (1) Left groin pain Status: Acute Problem Specific Plan: Consult Specialist Problem Text: Patient was admitted 10/01/2016 due to inability to ambulate and intractable left groin pain. She has since been evaluated with ultrasound, CT, and x-rays which do not demonstrate acute fracture or gross abnormality. Evaluation is difficult secondary to patient's body habitus. Orthopedics, Dr. White reviewed imaging and did not feel that this was a fracture. The plan is to transfer the patient to a bariatric unit [facility] for bariatric MRI and further evaluation. This is scheduled for Wednesday. Due to severe hip pain only with abduction, she may have a labral tear. There has been no indication that she needs to be bedbound, and I encouraged the patient to continue exercises in bed , and in a chair as tolerated. -Plan for transfer to [facility] on Wednesday -Discuss again with transfer center at [facility]; awaiting a bed - Percocet as needed for pain (2) Morbid obesity Status: Chronic Response to Treatment: Stable Problem Text: Patient has plans for bariatric surgery. She is in the final stages of this process. (3) DM2 (diabetes mellitus, type 2) Status: Chronic Response to Treatment: Stable Problem Text: Patient has a high doses of Toujeo and Humalog. Blood sugars have been grossly out of control, despite Toujeo 150 u BID and humalog 90 units TID. - changed humalog to home dose of 90 units TID - continued toujeo 150 u BID - added dose corrective insulin (4) HTN (hypertension) Status: Chronic Response to Treatment: Stable Problem Text: Continue amlodipine. (5) History of CVA (cerebrovascular accident) Status: Chronic Response to Treatment: Stable Problem Text: Continue to hold plavix in anticipation of possible need for surgery. (6) Depression Status: Chronic Response to Treatment: Stable Problem Text: Continue home duloxetine, wellbutrin, and xanax. (7) Obstructive sleep apnea Status: Chronic Response to Treatment: Stable Problem Text: Continue home Bipap. (8) Asthma Status: Chronic Response to Treatment: Stable Problem Text: Continue nebs PRN. Patient states breathing is at baseline s/p neb this morning. (9) Iron deficiency anemia Status: Chronic Response to Treatment: Stable Problem Text: Continue ferrous sulfate. Plan/VTE VTE Prophylaxis Ordered?: Yes (heparin) VS, I&O[facility] Vital Signs/I&O Vital Signs Date Time Temp Pulse Resp B/P Pulse Ox O2 Delivery O2 Flow Rate FiO2 10/10/16 14:00 98.3 83 19 122/56 98 Nasal Cannula 4.0 I&O- Last 24 Hours up to 6 AM 10/10/16 06:00 Intake Total 840 ml Output Total 1000 ml Balance -160 ml Laboratory Data 24H LABS Laboratory Tests 2 10/09/16 16:50: Bedside Glucose (Misc Panel) 404H 10/09/16 20:52: Bedside Glucose (Misc Panel) 363H 10/10/16 05:41: Anion Gap 7L, Blood Urea Nitrogen 34H, Creatinine 1.88H, Sodium Level 138, Potassium Level 4.6, Chloride Level 100, Carbon Dioxide Level 31, Calcium Level 9.3, Glomerular Filtration Rate 29.2L CBC/BMP Laboratory Tests 10/10/16 05:41 Calcium Level 9.3 Microbiology Microbiology 10/01/16 Urine Culture - Final, Complete Escherichia Coli 10/01/16 Urine Culture - Final, Complete Escherichia Coli KAITLYN GENAO MD Oct 10, 2016 16:37
[2016-10-10] MEDS: DOCUSATE SODIUM 100 MG CAP PO PRN (17:06)
[2016-10-10] MEDS: MIRALAX *UNIT DOSE* 17GM PACKET PO PRN (17:06)
[2016-10-10] MEDS: HumaLOG INSULIN (NovoLOG) PER UNIT SC SCH ×2 (17:24→21:44)
[2016-10-10] MEDS: PERCOCET 5MG/325MG TAB PO PRN (19:02)
[2016-10-10 20:55] VITALS: BP 164/74
[2016-10-11 05:20] VITALS: BP 140/72
[2016-10-11 06:05] LABS: CALCIUM LEVEL 9.1 MG/DL (8.5-10.1); CREATININE FOR GFR 1.62 MG/DL (0.55-1.02); GLOMERULAR FILTRATION RATE 34.6 (>51); POTASSIUM SERUM 4.4 MEQ/L (3.5-5.1)
[2016-10-11] MEDS: HumaLOG INSULIN (NovoLOG) PER UNIT SC SCH ×4 (09:16→21:00)
[2016-10-11] MEDS: DULoxetine 30 MG CAP (CYMBALTA) PO SCH (09:17)
[2016-10-11] MEDS: CYCLOBENZAPRINE 5MG TABLET PO SCH ×3 (09:17→21:39)
[2016-10-11] MEDS: GABAPENTIN 300 MG CAP PO SCH ×3 (09:17→21:39)
[2016-10-11] MEDS: amLODIPine 5 MG TAB PO SCH (09:18)
[2016-10-11] MEDS: FERROUS SULFATE 325MG TAB PO SCH (09:18)
[2016-10-11] MEDS: PERCOCET 5MG/325MG TAB PO PRN ×3 (09:18→21:46)
[2016-10-11] MEDS: FUROSEMIDE 20 MG TAB PO SCH (09:18)
[2016-10-11] MEDS: HUMULIN R U SC SCH ×3 (09:18→18:12)
[2016-10-11] MEDS: TOUJEO SC SCH ×2 (09:19→21:40)
[2016-10-11] MEDS: buPROPion **XL** TABLET 150MG (WELLBUTRIN XL) PO SCH (09:22)
[2016-10-11] MEDS: MIRALAX *UNIT DOSE* 17GM PACKET PO PRN (09:25)
[2016-10-11] MEDS: HEPARIN SOD (PORCINE) 5000 UNITS/ML VIAL SC SCH ×2 (13:04→21:40)
[2016-10-11 14:00] VITALS: BP 145/69
--- NOTE | 2016-10-11 17:09 | IPNPDOC ---
Subjective Date Seen The patient was seen on 10/11/16. Subjective Chief Complaint/HPI The patient is a 61-year-old female admitted with a reason for visit of Left Groin Pain. Events since last encounter Patient continues to have significant right groin pain. Family notes that this was worse after patient tried to do some exercises in bed yesterday. After reviewing with [facility], and taking patient's measurements, it was discovered that soon he [facility] would not be able to accommodate her any better in their MRI machine. Constitutional: Denies: Chills, Fever, Malaise Skin: Denies: Lesions, Rash Pulmonary: Denies: Cough, Dyspnea Cardiovascular: Denies: Chest Pain, Orthopnea, Palpitations Gastrointestinal: Denies: Abdominal Pain, Nausea, Vomiting Genitourinary: Denies: Dysuria Hematologic: Denies: Bruising Musculoskeletal: Reports: Joint Pain (right hip and groin pain) Neurological: Denies: Numbness, Weakness Psych: Reports: Mood Normal Other systems 10 point review systems is otherwise negative Objective Physical Examination General Exam: Positive: No Acute Distress, Other (morbidly obese with BMI of 75 ; sleeping soundly) ENT Exam: Positive: Atraumatic Chest Exam: Positive: Clear to auscultation, Diminished (throughout), Negative: Rales, Rhonchi, Wheezing Heart Exam: Positive: Normal S1, Normal S2, Other (heart sounds distant), Rate Normal Abdomen Exam: Positive: Soft, Negative: Tenderness Extremity Exam: Negative: Edema Skin Exam: Negative: Rash Neuro Exam: Positive: Normal Speech Psych Exam: Positive: Other (patient is sleeping soundly) Assessment /Plan Problems (1) Left groin pain Status: Acute Problem Specific Plan: Consult Specialist Problem Text: Patient was admitted 10/01/2016 due to inability to ambulate and intractable left groin pain. She has since been evaluated with ultrasound, CT, and x-rays which do not demonstrate acute fracture or gross abnormality. Evaluation is difficult secondary to patient's body habitus. Orthopedics, Dr. White reviewed imaging and did not feel that this was a fracture. The plan was to transfer the patient to a bariatric unit [facility] for bariatric MRI and further evaluation. However, after reviewing with [facility], and taking measurements of the patient, they indicated that their MRI machine will not accommodate her either. - Discuss possible trial of ultrasound-guided steroid injection - Percocet as needed for pain - Patient family services discharge planning (2) Morbid obesity Status: Chronic Response to Treatment: Stable Problem Text: Patient has plans for bariatric surgery. She is in the final stages of this process. (3) DM2 (diabetes mellitus, type 2) Status: Chronic Response to Treatment: Stable Problem Text: Patient has a high doses of Toujeo and Humalog. Blood sugars better controlled today. - humalog 90 units TID - continue toujeo 150 u BID - Sliding-scale insulin (4) HTN (hypertension) Status: Chronic Response to Treatment: Stable Problem Text: Continue amlodipine. (5) History of CVA (cerebrovascular accident) Status: Chronic Response to Treatment: Stable Problem Text: Will restart Plavix tomorrow unless orthopedics would like this to be held prior to trial injection of steroids. (6) Depression Status: Chronic Response to Treatment: Stable Problem Text: Continue home duloxetine, wellbutrin, and xanax. (7) Obstructive sleep apnea Status: Chronic Response to Treatment: Stable Problem Text: Continue home Bipap. (8) Asthma Status: Chronic Response to Treatment: Stable Problem Text: Continue nebs PRN. Patient states breathing is at baseline s/p neb this morning. (9) Iron deficiency anemia Status: Chronic Response to Treatment: Stable Problem Text: Continue ferrous sulfate. Plan/VTE VTE Prophylaxis Ordered?: Yes (heparin) Disposition Likely discharge to rehab VS, I&O, 24H, Fishbone Vital Signs/I&O Vital Signs Date Time Temp Pulse Resp B/P Pulse Ox O2 Delivery O2 Flow Rate FiO2 10/11/16 15:44 18 NIPPV (BIPAP/CPAP) 4.0 10/11/16 09:18 78 145/67 10/11/16 05:20 97.6 96 I&O- Last 24 Hours up to 6 AM 10/11/16 06:00 Intake Total 840 ml Output Total 1000 ml Balance -160 ml Laboratory Data 24H LABS Laboratory Tests 2 10/10/16 20:41: Bedside Glucose (Misc Panel) 372H 10/11/16 05:31: Anion Gap 7L, Blood Urea Nitrogen 35H, Creatinine 1.62H, Sodium Level 138, Potassium Level 4.4, Chloride Level 100, Carbon Dioxide Level 31, Calcium Level 9.1, Glomerular Filtration Rate 34.6L CBC/BMP Laboratory Tests 10/11/16 05:31 Calcium Level 9.1 Microbiology Microbiology 10/01/16 Urine Culture - Final, Complete Escherichia Coli 10/01/16 Urine Culture - Final, Complete Escherichia Coli KAITLYN GENAO MD Oct 11, 2016 17:09
[2016-10-11] MEDS: NYSTATIN 100,000 UNITS/GM TOPICAL PWD 15 GM TOP PRN (21:39)
[2016-10-11 22:00] VITALS: BP 134/66
[2016-10-12 06:00] VITALS: BP 139/68
[2016-10-12] MEDS: HEPARIN SOD (PORCINE) 5000 UNITS/ML VIAL SC SCH ×3 (06:25→22:32)
[2016-10-12 06:49] LABS: CALCIUM LEVEL 9.2 MG/DL (8.5-10.1); CREATININE FOR GFR 1.65 MG/DL (0.55-1.02); GLOMERULAR FILTRATION RATE 33.9 (>51); POTASSIUM SERUM 4.2 MEQ/L (3.5-5.1)
[2016-10-12] MEDS: HumaLOG INSULIN (NovoLOG) PER UNIT SC SCH ×4 (07:30→21:00)
--- NOTE | 2016-10-12 08:37 | IPNPDOC ---
Subjective Date Seen The patient was seen on 10/12/16. Subjective Chief Complaint/HPI The patient is a 61-year-old female admitted with a reason for visit of Left Groin Pain. Events since last encounter c/o left groin pain. Worse with lifting left leg to go to standing position and abduction. Daughter at bedside: patient agreeable to rehab stay if necessary. 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 Constitutional: Denies: Chills, Fever, Night Sweats Pulmonary: Denies: Cough, Dyspnea Cardiovascular: Denies: Chest Pain, Lt Headedness, Orthopnea, Palpitations, Paroxysmal Noc. Dyspnea Gastrointestinal: Denies: Abdominal Pain, Constipation, Diarrhea, Nausea, Vomiting Genitourinary: Denies: Dysuria, Frequency, Incontinence, Retention Musculoskeletal: Reports: Other Symptoms (Left roin pain) Objective Physical Examination General Exam: Positive: No Acute Distress, Other (morbidly obese with BMI of 75 ; sleeping soundly) ENT Exam: Positive: Atraumatic Chest Exam: Positive: Clear to auscultation, Diminished (throughout), Negative: Rales, Rhonchi, Wheezing Heart Exam: Positive: Normal S1, Normal S2, Other (heart sounds distant), Rate Normal Abdomen Exam: Positive: Soft, Negative: Tenderness Extremity Exam: Negative: Edema Skin Exam: Negative: Rash Neuro Exam: Positive: Normal Speech Psych Exam: Positive: Mental status NL, Oriented x 3 Assessment /Plan Problems (1) Left groin pain Status: Acute Problem Specific Plan: Consult Specialist Problem Text: Patient was admitted 10/01/2016 due to inability to ambulate and intractable left groin pain. She has since been evaluated with ultrasound, CT, and x-rays which do not demonstrate acute fracture or gross abnormality. Evaluation is difficult secondary to patient's body habitus. Orthopedics, Dr. White reviewed imaging and did not feel that this was a fracture. The plan was to transfer the patient to a bariatric unit [facility] for bariatric MRI and further evaluation. However, after reviewing with [facility], and taking measurements of the patient, they indicated that their MRI machine will not accommodate her either. - Discuss possible trial of ultrasound-guided steroid injection - Percocet as needed for pain - Patient family services discharge planning 10/12/2016: plan on discussion with PT and PFS today. Most likely labral tear/ strain of groin with description of pain. MRI unattainable secondary to patient' s body habitus. (2) Morbid obesity Status: Chronic Response to Treatment: Stable Problem Text: Patient has plans for bariatric surgery. She is in the final stages of this process. (3) DM2 (diabetes mellitus, type 2) Status: Chronic Response to Treatment: Stable Problem Text: Patient has a high doses of Toujeo and Humalog. Blood sugars better controlled today. - humalog 90 units TID - continue toujeo 150 u BID - Sliding-scale insulin (4) HTN (hypertension) Status: Chronic Response to Treatment: Stable Problem Text: Continue amlodipine. (5) History of CVA (cerebrovascular accident) Status: Chronic Response to Treatment: Stable Problem Text: Will restart Plavix tomorrow unless orthopedics would like this to be held prior to trial injection of steroids. (6) Depression Status: Chronic Response to Treatment: Stable Problem Text: Continue home duloxetine, wellbutrin, and xanax. (7) Obstructive sleep apnea Status: Chronic Response to Treatment: Stable Problem Text: Continue home Bipap. (8) Asthma Status: Chronic Response to Treatment: Stable Problem Text: Continue nebs PRN. Patient states breathing is at baseline s/p neb this morning. (9) Iron deficiency anemia Status: Chronic Response to Treatment: Stable Problem Text: Continue ferrous sulfate. Plan/VTE VTE Prophylaxis Ordered?: Yes (heparin) Plan Attending note: I saw and evaluated the patient, and agree with the plan of care as discussed and documented above by Edie Bashir. Gurpreet Genao MD VS, I&O, 24H, [facility] Vital Signs/I&O Vital Signs Date Time Temp Pulse Resp B/P Pulse Ox O2 Delivery O2 Flow Rate FiO2 10/12/16 06:00 99.0 80 18 139/68 96 Nasal Cannula 4.0 I&O- Last 24 Hours up to 6 AM 10/12/16 06:00 Intake Total 960 ml Output Total 1200 ml Balance -240 ml Laboratory Data 24H LABS Laboratory Tests 2 10/11/16 21:31: Bedside Glucose (Misc Panel) 115H 10/12/16 05:57: Anion Gap 7L, Blood Urea Nitrogen 36H, Creatinine 1.65H, Sodium Level 140, Potassium Level 4.2, Chloride Level 102, Carbon Dioxide Level 31, Calcium Level 9.2, Glomerular Filtration Rate 33.9L CBC/BMP Laboratory Tests 10/12/16 05:57 Calcium Level 9.2 Evangelina Bashir Oct 12, 2016 08:37 GURPREET GENAO MD Oct 14, 2016 18:39
[2016-10-12] MEDS: HUMULIN R U SC SCH ×3 (09:35→17:30)
[2016-10-12] MEDS: GABAPENTIN 300 MG CAP PO SCH ×3 (09:36→22:31)
[2016-10-12] MEDS: DULoxetine 30 MG CAP (CYMBALTA) PO SCH (09:36)
[2016-10-12] MEDS: FUROSEMIDE 20 MG TAB PO SCH (09:36)
[2016-10-12] MEDS: TOUJEO SC SCH ×2 (09:36→22:34)
[2016-10-12] MEDS: CYCLOBENZAPRINE 5MG TABLET PO SCH ×3 (09:36→22:31)
[2016-10-12] MEDS: buPROPion **XL** TABLET 150MG (WELLBUTRIN XL) PO SCH (09:36)
[2016-10-12] MEDS: FERROUS SULFATE 325MG TAB PO SCH (09:36)
[2016-10-12] MEDS: amLODIPine 5 MG TAB PO SCH (09:37)
[2016-10-12] MEDS: PERCOCET 5MG/325MG TAB PO PRN ×4 (10:07→22:33)
[2016-10-12 14:00] VITALS: BP 108/67
[2016-10-12 22:00] VITALS: BP 136/79
[2016-10-13] MEDS: HEPARIN SOD (PORCINE) 5000 UNITS/ML VIAL SC SCH ×3 (05:16→22:41)
[2016-10-13] MEDS: PERCOCET 5MG/325MG TAB PO PRN ×4 (05:17→22:51)
[2016-10-13 06:00] VITALS: BP 107/57
[2016-10-13 06:29] LABS: CALCIUM LEVEL 9.1 MG/DL (8.5-10.1); CREATININE FOR GFR 1.92 MG/DL (0.55-1.02); GLOMERULAR FILTRATION RATE 28.5 (>51); POTASSIUM SERUM 4.3 MEQ/L (3.5-5.1)
[2016-10-13] MEDS: HumaLOG INSULIN (NovoLOG) PER UNIT SC SCH ×4 (07:30→22:41)
--- NOTE | 2016-10-13 09:32 | IPNPDOC ---
Subjective Date Seen The patient was seen on 10/13/16. Subjective Chief Complaint/HPI The patient is a 61-year-old female admitted with a reason for visit of Left Groin Pain. Events since last encounter c/o muscle fatigue from increased activity. Otherwise feeling well. per PT progressing well. Constitutional: Denies: Chills, Fever, Night Sweats ENT: Denies: Dysphagia, Ear Pain, Head Aches Skin: Denies: Breakdown, Lesions, Rash Pulmonary: Reports: Dyspnea (chronic withe xertion), Denies: Cough Psych: Reports: Mood Normal, Denies: Depression, Memory Issues Objective Physical Examination General Exam: Positive: No Acute Distress, Other (morbidly obese with BMI of 75 ; sleeping soundly) ENT Exam: Positive: Atraumatic Chest Exam: Positive: Clear to auscultation, Diminished (throughout), Negative: Rales, Rhonchi, Wheezing Heart Exam: Positive: Normal S1, Normal S2, Other (heart sounds distant), Rate Normal Abdomen Exam: Positive: Soft, Negative: Tenderness Extremity Exam: Negative: Edema Skin Exam: Negative: Rash Neuro Exam: Positive: Normal Speech Psych Exam: Positive: Mental status NL, Oriented x 3 Assessment /Plan Problems (1) Left groin pain Status: Acute Problem Specific Plan: Consult Specialist Problem Text: Patient was admitted 10/01/2016 due to inability to ambulate and intractable left groin pain. She has since been evaluated with ultrasound, CT, and x-rays which do not demonstrate acute fracture or gross abnormality. Evaluation is difficult secondary to patient's body habitus. Orthopedics, Dr. White reviewed imaging and did not feel that this was a fracture. The plan was to transfer the patient to a bariatric unit [facility] for bariatric MRI and further evaluation. However, after reviewing with [facility], and taking measurements of the patient, they indicated that their MRI machine will not accommodate her either. - Discuss possible trial of ultrasound-guided steroid injection - Percocet as needed for pain - Patient family services discharge planning 10/12/2016: plan on discussion with PT and PFS today. Most likely labral tear/ strain of groin with description of pain. MRI unattainable secondary to patient' s body habitus. 10/13/2016: progressing well with PT. Will consider outpatient MRi if measurements are acceptable for [facility] open MRI (2) Morbid obesity Status: Chronic Response to Treatment: Stable Problem Text: Patient has plans for bariatric surgery. She is in the final stages of this process. (3) DM2 (diabetes mellitus, type 2) Status: Chronic Response to Treatment: Stable Problem Text: Patient has a high doses of Toujeo and Humalog. Blood sugars better controlled today. - humalog 90 units TID - continue toujeo 150 u BID - Sliding-scale insulin (4) HTN (hypertension) Status: Chronic Response to Treatment: Stable Problem Text: Continue amlodipine. (5) History of CVA (cerebrovascular accident) Status: Chronic Response to Treatment: Stable Problem Text: Will restart Plavix tomorrow unless orthopedics would like this to be held prior to trial injection of steroids. (6) Depression Status: Chronic Response to Treatment: Stable Problem Text: Continue home duloxetine, wellbutrin, and xanax. (7) Obstructive sleep apnea Status: Chronic Response to Treatment: Stable Problem Text: Continue home Bipap. (8) Asthma Status: Chronic Response to Treatment: Stable Problem Text: Continue nebs PRN. Patient states breathing is at baseline s/p neb this morning. (9) Iron deficiency anemia Status: Chronic Response to Treatment: Stable Problem Text: Continue ferrous sulfate. Plan/VTE VTE Prophylaxis Ordered?: Yes (heparin) Plan Attending note: I saw and evaluated the patient, and agree with the plan of care as discussed and documented above by Edie Bashir. Gurpreet Genao MD VS, I&O, 24H, [facility] Vital Signs/I&O Vital Signs Date Time Temp Pulse Resp B/P Pulse Ox O2 Delivery O2 Flow Rate FiO2 10/13/16 06:32 20 10/13/16 06:00 98.5 86 107/57 96 NIPPV (BIPAP/CPAP) 4.0 I&O- Last 24 Hours up to 6 AM 10/13/16 06:00 Intake Total 2335 ml Output Total 800 ml Balance 1535 ml Laboratory Data 24H LABS Laboratory Tests 2 10/12/16 11:36: Bedside Glucose (Misc Panel) 123H 10/12/16 17:04: Bedside Glucose (Misc Panel) 87 10/12/16 20:07: Bedside Glucose (Misc Panel) 76 10/12/16 22:09: Bedside Glucose (Misc Panel) 88 10/13/16 05:46: Anion Gap 7L, Blood Urea Nitrogen 40H, Creatinine 1.92H, Sodium Level 139, Potassium Level 4.3, Chloride Level 101, Carbon Dioxide Level 31, Calcium Level 9.1, Glomerular Filtration Rate 28.5L CBC/BMP Laboratory Tests 10/13/16 05:46 Calcium Level 9.1 Evangelina Bashir Oct 13, 2016 09:32 GURPREET GENAO MD Oct 14, 2016 18:41
[2016-10-13] MEDS: buPROPion **XL** TABLET 150MG (WELLBUTRIN XL) PO SCH (09:35)
[2016-10-13] MEDS: FERROUS SULFATE 325MG TAB PO SCH (09:35)
[2016-10-13] MEDS: GABAPENTIN 300 MG CAP PO SCH ×3 (09:35→22:40)
[2016-10-13] MEDS: DULoxetine 30 MG CAP (CYMBALTA) PO SCH (09:35)
[2016-10-13] MEDS: CYCLOBENZAPRINE 5MG TABLET PO SCH ×3 (09:35→22:40)
[2016-10-13] MEDS: amLODIPine 5 MG TAB PO SCH (09:36)
[2016-10-13] MEDS: FUROSEMIDE 20 MG TAB PO SCH (09:36)
[2016-10-13] MEDS: HUMULIN R U SC SCH ×3 (09:36→17:50)
[2016-10-13] MEDS: TOUJEO SC SCH ×2 (09:36→22:47)
[2016-10-13 14:00] VITALS: BP 139/66
[2016-10-13 22:00] VITALS: BP 141/65
[2016-10-14 06:00] VITALS: BP 127/70
[2016-10-14] MEDS: HEPARIN SOD (PORCINE) 5000 UNITS/ML VIAL SC SCH ×3 (06:33→20:39)
[2016-10-14 07:20] LABS: CREATININE FOR GFR 1.76 MG/DL (0.55-1.02); GLOMERULAR FILTRATION RATE 31.5 (>51); POTASSIUM SERUM 4.2 MEQ/L (3.5-5.1)
[2016-10-14] MEDS: HumaLOG INSULIN (NovoLOG) PER UNIT SC SCH ×4 (07:30→20:38)
[2016-10-14] MEDS: HUMULIN R U SC SCH ×3 (07:30→17:21)
[2016-10-14] MEDS: GABAPENTIN 300 MG CAP PO SCH ×3 (08:26→20:39)
[2016-10-14] MEDS: FERROUS SULFATE 325MG TAB PO SCH (08:26)
[2016-10-14] MEDS: buPROPion **XL** TABLET 150MG (WELLBUTRIN XL) PO SCH (08:27)
[2016-10-14] MEDS: CYCLOBENZAPRINE 5MG TABLET PO SCH ×3 (08:27→20:39)
[2016-10-14] MEDS: FUROSEMIDE 20 MG TAB PO SCH (08:27)
[2016-10-14] MEDS: DULoxetine 30 MG CAP (CYMBALTA) PO SCH (08:27)
[2016-10-14] MEDS: amLODIPine 5 MG TAB PO SCH (08:27)
[2016-10-14] MEDS: PERCOCET 5MG/325MG TAB PO PRN ×3 (08:28→20:40)
[2016-10-14] MEDS: TOUJEO SC SCH ×2 (09:00→20:44)
--- NOTE | 2016-10-14 09:55 | REP ---
CT LEFT HIP WITHOUT CONTRAST: 10/14/2016. Clinical history: Hip pain. Rule out fracture. Technique: Axial soft-tissue and bone windows with coronal and sagittal bone window reconstructions provided. Technologist notes indicate best images obtained due to extreme body habitus. Comparison: 10/04/2016, 01/15/2013. Findings: Small field of view soft tissue and bone windows show vacuum phenomenon in the left SI joint without adjacent acute finding. The acetabulum shows small marginal osteophytes superiorly and there is a rim osteophyte in the femoral head. There is narrowing of the hip joint space but no evidence of AVN. I do not see any definite fracture, sclerosis or healing fracture in the hip, femoral neck, trochanters or acetabulum. There is some sclerosis of the superior pubic ramus on the left without fracture. This is unchanged. No gross joint effusion. There is no avulsion or abnormal soft tissue calcification about the hip. The adjacent musculature is unchanged without hematoma or mass. There is no visible mass in the subcutaneous fat. Multiple inguinal nodes are noted unchanged. The largest is about 14 mm. Large pannus projects over the inguinal nodes and contains bowel. No definite inguinal hernia. Impression: 1. There is no evidence of fracture of the acetabulum or hip nor avulsion. Some sclerosis of the superior pubic ramus on the left side is unchanged from the prior exam and a CT abdomen/pelvis 10/01/2016. 2. Very large pannus overlying the hip and upper thigh. Between the pannus and the muscle layer are a group of inguinal nodes, unchanged. Signed by Ariel Oneil MD 10/14/2016 03:27 P
[2016-10-14 14:00] VITALS: BP 150/68
--- NOTE | 2016-10-14 19:28 | IPNPDOC ---
Subjective Date Seen The patient was seen on 10/14/16. Subjective Chief Complaint/HPI The patient is a 61-year-old female admitted with a reason for visit of Left Groin Pain. Events since last encounter Doing well, participating in physical therapy. Patient is somewhat reluctant to go home. Patient family services working on setting up the patient with transportation. Patient will have her home health nurse resuming care on Wednesday. Constitutional: Denies: Chills, Fever Cardiovascular: Denies: Chest Pain, Orthopnea, Palpitations Gastrointestinal: Denies: Abdominal Pain, Constipation, Diarrhea, Nausea, Vomiting Musculoskeletal: Reports: Other Symptoms (left hip pain) Other systems 10 point review systems otherwise negative Objective Physical Examination General Exam: Positive: No Acute Distress, Other (morbidly obese with BMI of 75 ; sleeping soundly) ENT Exam: Positive: Atraumatic Chest Exam: Positive: Clear to auscultation, Diminished (throughout), Negative: Rales, Rhonchi, Wheezing Heart Exam: Positive: Normal S1, Normal S2, Other (heart sounds distant), Rate Normal Abdomen Exam: Positive: Soft, Negative: Tenderness Extremity Exam: Negative: Edema Skin Exam: Negative: Rash Neuro Exam: Positive: Normal Speech Psych Exam: Positive: Mental status NL, Oriented x 3 Assessment /Plan Problems (1) Left groin pain Status: Acute Problem Specific Plan: Consult Specialist Problem Text: Patient was admitted 10/01/2016 due to inability to ambulate and intractable left groin pain. She has since been evaluated with ultrasound, CT, and x-rays which do not demonstrate acute fracture or gross abnormality. Evaluation is difficult secondary to patient's body habitus. Orthopedics, Dr. White reviewed imaging and did not feel that this was a fracture. The plan was to transfer the patient to a bariatric unit [facility] [place] for bariatric MRI and further evaluation. However, after reviewing with [facility], and taking measurements of the patient, they indicated that their MRI machine will not accommodate her either. Possible labral tear, however physical therapy would be the goal even if this is a case. Patient understands this. PT feels patient is safe for home discharge at this point. - Discuss possible trial of ultrasound-guided steroid injection - Percocet as needed for pain - Discharge plannned for 10/15/2016 (2) Morbid obesity Status: Chronic Response to Treatment: Stable Problem Text: Patient has plans for bariatric surgery. She is in the final stages of this process. (3) DM2 (diabetes mellitus, type 2) Status: Chronic Response to Treatment: Stable Problem Text: Patient has a high doses of Toujeo and Humalog. Blood sugars better controlled today. - humalog 90 units TID - continue toujeo 150 u BID - Sliding-scale insulin (4) HTN (hypertension) Status: Chronic Response to Treatment: Stable Problem Text: Continue amlodipine. (5) History of CVA (cerebrovascular accident) Status: Chronic Response to Treatment: Stable Problem Text: Will restart Plavix tomorrow unless orthopedics would like this to be held prior to trial injection of steroids. (6) Depression Status: Chronic Response to Treatment: Stable Problem Text: Continue home duloxetine, wellbutrin, and xanax. (7) Obstructive sleep apnea Status: Chronic Response to Treatment: Stable Problem Text: Continue home Bipap. (8) Asthma Status: Chronic Response to Treatment: Stable Problem Text: Continue nebs PRN. Patient states breathing is at baseline s/p neb this morning. (9) Iron deficiency anemia Status: Chronic Response to Treatment: Stable Problem Text: Continue ferrous sulfate. Plan/VTE VTE Prophylaxis Ordered?: Yes (heparin) Disposition Discharge plan for 10/15/2016 VS, I&O, 24H, [facility] Vital Signs/I&O Vital Signs Date Time Temp Pulse Resp B/P Pulse Ox O2 Delivery O2 Flow Rate FiO2 10/14/16 14:08 18 10/14/16 14:00 97.4 81 150/68 99 Nasal Cannula 4.0 I&O- Last 24 Hours up to 6 AM 10/14/16 06:00 Intake Total 1540 ml Output Total 900 ml Balance 640 ml Laboratory Data 24H LABS Laboratory Tests 2 10/13/16 20:19: Bedside Glucose (Misc Panel) 95 10/14/16 06:40: Anion Gap 5L, Blood Urea Nitrogen 41H, Creatinine 1.76H, Sodium Level 141, Potassium Level 4.2, Chloride Level 104, Carbon Dioxide Level 32, Calcium Level 9.0, Glomerular Filtration Rate 31.5L 10/14/16 11:54: Bedside Glucose (Misc Panel) 136H 10/14/16 16:41: Bedside Glucose (Misc Panel) 226H CBC/BMP Laboratory Tests 10/14/16 06:40 Calcium Level 9.0 KAITLYN GENAO MD Oct 14, 2016 19:28
[2016-10-14 22:00] VITALS: BP 133/67
[2016-10-15] MEDS: HEPARIN SOD (PORCINE) 5000 UNITS/ML VIAL SC SCH ×2 (05:39→13:10)
[2016-10-15 06:00] VITALS: BP 107/64
[2016-10-15 06:53] LABS: CALCIUM LEVEL 9.7 MG/DL (8.5-10.1); CREATININE FOR GFR 2.08 MG/DL (0.55-1.02); GLOMERULAR FILTRATION RATE 25.9 (>51); POTASSIUM SERUM 4.4 MEQ/L (3.5-5.1)
[2016-10-15] MEDS: HumaLOG INSULIN (NovoLOG) PER UNIT SC SCH ×2 (07:30→13:11)
[2016-10-15] MEDS: HUMULIN R U SC SCH ×2 (07:30→12:00)
[2016-10-15] MEDS ORDERED: PERCOCET PO (08:03)
[2016-10-15] MEDS: TOUJEO SC SCH (09:00)
[2016-10-15] MEDS: FUROSEMIDE 20 MG TAB PO SCH (09:45)
[2016-10-15] MEDS: CYCLOBENZAPRINE 5MG TABLET PO SCH ×2 (09:45→15:14)
[2016-10-15] MEDS: DULoxetine 30 MG CAP (CYMBALTA) PO SCH (09:45)
[2016-10-15] MEDS: GABAPENTIN 300 MG CAP PO SCH ×2 (09:45→15:14)
[2016-10-15] MEDS: FERROUS SULFATE 325MG TAB PO SCH (09:46)
[2016-10-15 09:48] VITALS: BP 121/56
[2016-10-15] MEDS: amLODIPine 5 MG TAB PO SCH (09:48)
[2016-10-15] MEDS: buPROPion **XL** TABLET 150MG (WELLBUTRIN XL) PO SCH (09:53)
[2016-10-15] MEDS: PERCOCET 5MG/325MG TAB PO PRN ×2 (09:54→15:15)
[2016-10-15 14:00] VITALS: BP 134/67
--- NOTE | 2016-10-15 22:27 | DSES ---
DATE OF ADMISSION: 10/01/2016 DATE OF DISCHARGE: 10/15/2016 PRIMARY CARE PROVIDER: Yudi Vega NP HISTORY OF PRESENT ILLNESS: 61-year-old severely morbidly obese female who presented to the emergency room for severe left inguinal groin pain with radiation to the back. Patient was having difficulty ambulating and was unable to care for herself. Workup in the emergency room completed with CT scan of abdomen and pelvis with no abnormal bony structures. Urinalysis and urine cultures were obtained. Urine culture did show positive for Escherichia (E) coli, colony count was low at 10,000. Patient was treated with nitrofurantoin and has finished her course. Patient continued to have significant difficulty with physical capabilities. She did have a small hernia on the CT scan and a consultation was requested from Dr. Del Valle who noted that he did not feel that her pain was secondary to the hernia. Attempted MRI was ordered, however patient's body habitus did not allow for the MRI to be completed here at this facility. Attempted arrangement for transfer to [facility] was conducted, however patient's body habitus also did not assist with patient's capability for transfer to [facility]. Orthopedics was consulted and advised no further interventions, supportive measures. Repeat CT scan was completed on 10/14/2016. No evidence of acetabulum fracture of the hip. There was noted sclerosis of the superior pubic ramus on the left side which was unchanged. Very large pannus overlying the hip and upper thigh. Between the pannus and muscle layers are a group of unchanged inguinal nodes. Otherwise CT is negative. Patient has progressed well with pain control from oxycodone as well as physical therapy. She has returned to her baseline and has anticipation of returning home today. PHYSICAL EXAMINATION: VITAL SIGNS: Stable, she is afebrile. HEENT: Neck is supple without lymphadenopathy. CARDIOVASCULAR: Heart rate and rhythm are regular. PULMONARY: Lungs are clear to auscultation bilaterally. ABDOMEN: Soft and nontender. Abdominal exam is extremely limited secondary to patient's body habitus. ASSESSMENT: 1. Left groin pain, decreased mobility, probable labral tear or groin strain. 2. Morbid obesity. 3. Diabetes. Patient did have significant decrease in her insulin needs while in the hospital, however diet was more controlled than obviously in her home environment. 4. History of asthma. 5. Obstructive sleep apnea. 6. Hypertension. 7. Iron deficiency anemia. 8. Hypercholesterolemia. PLAN: Patient will be discharged home. Diet is carbohydrate consistent. Activity is as tolerated. She will continue with her home continuous positive airway pressure (CPAP) and bilevel positive airway pressure (BiPAP). She will continue with her home oxygen as previously utilized. She will continue with home health services as already arranged. MEDICATIONS: Are as follows: - oxycodone with acetaminophen 5-325 one tablet by mouth every 4 hours as needed for moderate pain - albuterol with ipratropium 3 mL every 2 hours as needed for shortness of breath - alprazolam 0.5 mg by mouth twice a day as needed for anxiety - amlodipine 5 mg by mouth daily - bupropion 150 mg by mouth daily - Plavix 75 mg by mouth daily - cyclobenzaprine 5 mg by mouth three times a day - diphenhydramine 25 mg by mouth every 6 hours as needed for itching - Colace 100 mg capsules, she may take two by mouth nightly as needed for constipation - Dulera 200-5 mcg one inhalation daily - duloxetine 30 mg capsules two by mouth daily - EpiPen as needed for allergic reaction - ferrous sulfate 325 mg by mouth daily - fluticasone propionate two sprays each nostril daily as needed for nasal congestion - folic acid 100 mg by mouth daily - furosemide 20 mg by mouth daily - gabapentin 300 mg capsules two by mouth three times a day - insulin U-500 25 units subcutaneous before food - insulin lispro via KwikPen 90 units subcutaneous three times a day - levalbuterol tartrate two puffs four times a day as needed for shortness of breath - loratadine 10 mg by mouth nightly - metoprolol tartrate 25 mg by mouth twice a day - Singulair 10 mg by mouth nightly - niacin ER 500 mg by mouth twice a day Wednesday and Wednesday - nitroglycerin 0.4 mg sublingual as needed for angina - nystatin 100,000 units per gram powder, one dose topically twice a day - nystatin cream one dose topically twice a day - quinapril 20 mg by mouth twice a day - Ranexa 500 mg by mouth twice a day - tolterodine tartrate 2 mg by mouth twice a day - Toujeo SoloStar 150 units subcutaneous before food - vitamin D 50,000 international units by mouth weekly Patient is discharged in stable and satisfactory condition with no further questions at the time of discharge.
== END 2016-10-15 16:32 | disposition home health service (06) | DRG 351 ==
LOC: EDBD 20:01 → M ED 21:46 → M ED INP 10-01 06:00 → M MSPAV 10-01 06:52
PROVIDERS: ADMIT Internal Medicine; ATTEND Family Medicine
DX: S73.102A Unspecified sprain of left hip, initial encounter (principal); E11.42 Type 2 diabetes mellitus with diabetic polyneuropathy; E66.01 Morbid (severe) obesity due to excess calories; Z68.45 Body mass index [BMI] 70 or greater, adult; R10.32 Left lower quadrant pain; E78.5 Hyperlipidemia, unspecified; J45.909 Unspecified asthma, uncomplicated; I10 Essential (primary) hypertension; I89.0 Lymphedema, not elsewhere classified; D50.9 Iron deficiency anemia, unspecified; F32.9 Major depressive disorder, single episode, unspecified; G47.33 Obstructive sleep apnea (adult) (pediatric); R32 Unspecified urinary incontinence; Z85.41 Personal history of malignant neoplasm of cervix uteri; K46.9 Unspecified abdominal hernia without obstruction or gangrene; Z79.02 Long term (current) use of antithrombotics/antiplatelets; Z86.73 Personal history of transient ischemic attack (TIA), and cerebral infarction without residual deficits; Z88.6 Allergy status to analgesic agent; Z88.8 Allergy status to other drugs, medicaments and biological substances; Z79.4 Long term (current) use of insulin; Z79.899 Other long term (current) drug therapy; X58.XXXA Exposure to other specified factors, initial encounter; Y92.009 Unspecified place in unspecified non-institutional (private) residence as the place of occurrence of the external cause; Y99.9 Unspecified external cause status

== ENCOUNTER 2016-10-23 09:11 | Inpatient (IN) | payer OTHER ==
[~2016-10-23] VITALS: Ht 165.1 cm; Wt 234.1 kg
[~2016-10-23 09:11] MED LIST changes: +BUPR150T3 PO; +CYCL5TA PO; +DIPH25CA PO; +FOLI800T PO; +INSUR50VL SC; +METO12TA PO; +NIAC500T44 PO; +NYST10CR EXT; +PERCOCET PO
--- NOTE | 2016-10-23 10:02 | REP ---
CT Head without contrast HISTORY: Trauma COMPARISON: 03/16/2011 There is no intraparenchymal hemorrhage, acute infarct, mass or midline shift. The ventricular system is normal in appearance. There is no extra cerebral collection. There is no fracture. A 11 mm lesion containing bone matrix is present in the left frontal bone. There is thickening of the outer table of the cortex. The lesion is slightly increased in size compared to the previous study. The visualized sinuses are clear. IMPRESSION: 1. There is no intracranial lesion. 2. There is an 11 mm lesion in the left frontal bone that is slightly increased in size compared to the previous study. This may represent an osteoma, ossifying fibroma, hemangioma or possibly intraosseous meningioma. Signed by Chet Hancock MD 10/23/2016 09:54 A
[2016-10-23 10:08] LABS: MEAN CORPUSCULAR HEMOGLOBIN 29.2 pg (27.0-33.0); MEAN CORPUSCULAR HGB CONC 31.6 g/dl (32.0-36.5); MEAN CORPUSCULAR VOLUME 92.6 fl (80.0-96.0); RED CELL DISTRIBUTION WIDTH 14.3 % (11.5-14.5); WHITE BLOOD COUNT 12.9 K/mm3 (4.0-10.0)
[2016-10-23 10:13] LABS: INR 1.33
[2016-10-23 10:28] LABS: ALBUMIN 2.5 GM/DL (3.2-5.2); ALBUMIN/GLOBULIN RATIO 0.63 (1.00-1.93); BILIRUBIN,DIRECT 0.6 MG/DL (0.0-0.2); BILIRUBIN,TOTAL 0.9 MG/DL (0.2-1.0); CALCIUM LEVEL 8.1 MG/DL (8.5-10.1); CREATININE FOR GFR 3.47 MG/DL (0.55-1.02); GLOMERULAR FILTRATION RATE 14.4 (>51); POTASSIUM SERUM 3.9 MEQ/L (3.5-5.1); TOTAL PROTEIN 6.5 GM/DL (6.4-8.2)
[2016-10-23 10:53] LABS: BANDS 1 % (< 11)
[2016-10-23] MEDS ORDERED: cefTRIAXone SOD 1 GM in D5W MINI-BAG PLUS 50 ML IV ONE (12:15)
[2016-10-23] MEDS ORDERED: BUPR300T34 PO (12:53)
[2016-10-23] MEDS ORDERED: DULO1CAP3 PO (12:53)
[2016-10-23] MEDS ORDERED: FURO40TA2 PO (12:53)
[2016-10-23] MEDS ORDERED: OXYC1TAB23 PO (12:53)
[2016-10-23] MEDS ORDERED: CYCL5TA PO (12:53)
[2016-10-23] MEDS ORDERED: DEXTROSE 50% 50 ML SYRINGE IV PRN (14:00)
[2016-10-23] MEDS ORDERED: FLUTICASONE PROP 0.05% NASAL SPRAY 16 GM (FLONASE) PRN (14:00)
[2016-10-23] MEDS ORDERED: GLUCAGON FOR INJ 1 MG VIAL (J1610) SC PRN (14:00)
[2016-10-23] MEDS ORDERED: GLUCOSE 4 GM CHEW TABLET PO PRN (14:00)
--- NOTE | 2016-10-23 14:14 | HPEPDOC ---
Medical History and Physical Date of Admission Oct 23, 2016 at 13:23 History and Physical ATTENDING: Dr. Dorsey PCP: Yudi Vega CREDIT ANALYSIS MANAGER CC: Fall HPI: 61yoF with a past medical history significant for DM, Morbid Obesity, asthma, SEAN, recent admission 10/01/16 for left sided groin pain, she was treated with Nitrofurantoin for E coli UTI at that time. She states she got OOB this AM and felt weak falling to the floor. She hit the Right side of her head. She called EMS and came to the ED for evaluation. She reports chills, dysuria, urinary frequency and urgency as well in the ED. Denies any fevers, RAMOS, CP, SOB, cough, palpitations, abdominal pain, N/V/D or changes in bowel or bladder habits. Upon presentation to the hospital the patient was found to have UTI with sepsis , thus the hospitalist team was consulted. PMHx: IDDM Hyperlipidemia Asthma SEAN on BiPAP Hypertension Urinary incontinence History of cervical cancer/endometrial neoplasia Morbid obesity Fe Deficiency anemia CKD 4 baseline 1.7-2.0 Angina Depression Anxiety Chronic back pain Chronic knee pain Chronic pain Allergic rhinitis PSHX: Appendectomy Tonsillectomy SOCHX: Resides in: [place] Marital Status: Kids: 6 Tobacco use: Denies ETOH: Denies Illicit Drugs: Denies Advanced directives: None FAMHX: Mother: Alive, diabetes Father: Alive, CVA, CAD, CABG Siblings: One brother, 2 sisters Alive, well Children: Alive, well Unexpected deaths due to medical reasons: None. ROS: As noted in HPI, otherwise 11pt ROS of systems reviewed and remarkable chronic knee pain and low back pain. PE: GEN: 61yoF, appears older than stated age. No acute distress. Alert and oriented x 3. Pleasant, interactive. HEENT: Normocephalic, atraumatic. Pupils are equal, round, and reactive to light. Extraocular movements are intact. No nystagmus appreciated. Sclera are nonicteric. Conjunctiva without injection. Nose midline. Nasal turbinates without bogginess. EACs both patent BL. TMs both visualized and feldman with good cone of light, no bulging or erythema. No facial asymmetry. Moist mucous membranes. Dentition fair. Pharynx pink and moist, no cobblestoning. Neck supple , trachea midline. No lymphadenopathy or thyromegaly appreciated. CHEST: Regular rate and rhythm, +S1, +S2 LUNGS: Clear to auscultation bilaterally. No wheezes, rales, or rhonchi. Breathing appears symmetric and easy. Patient is speaking in full sentences. No accessory muscle use. ABD: Round, soft, non-tender, non-distended. +Bowel sounds throughout. No rebound or guarding. No costovertebral angle tenderness. EXT: Pulses 2+ bilaterally dorsalis pedis and radial. No lower extremity edema appreciated. SKIN: [place], dry, warm. Capillary refill <2sec. No rashes. NEURO: Alert and oriented x 3. Cranial nerves III-XII are intact. No focal deficits appreciated. CT: Head 1. There is no intracranial lesion. 2. There is an 11 mm lesion in the left frontal bone that is slightly increased in size compared to the previous study. This may represent an osteoma, ossifying fibroma, hemangioma or possibly intraosseous meningioma. BLOOD CULTURES:x 2 pending UC pending. A&P: 61yoF with a past medical history significant for DM, Morbid Obesity, asthma, SEAN, recent admission 10/01/16 for left sided groin pain, she was treated with Nitrofurantoin for E coli UTI at that time. She states she got OOB this AM and felt weak falling to the floor. She hit the Right side of her head. She called EMS and came to the ED for evaluation. The patient will be admitted to PCU for at least [address] Dorsey's service. UTI/Sepsis. Pt is started on ceftriaxone 1 g IV every 24 hours. Blood cultures and urine cultures pending. Daily labs requested. JUANCHO on CKD 3-4. Baseline is noted to be 1.7-2.0. IVF at 75cc/hr. IDDM. CC diet. SSI. HTN. Metoprolol continued with hold parameters. Lasix and quinapril on hold at this time. SEAN. Continue BiPAP with home settings. M Obesity. Complicates care. Angina. PCU/TM. Continue Plavix and Ranexa. Chronic pain. Continue with Cymbalta, gabapentin, and oxycodone as needed which is the patient's chronic outpatient regimen. Allergic rhinitis. Continue with Flonase and loratadine. Depression/anxiety. Continue with Wellbutrin. Xanax twice a day as needed. Chronic urinary incontinence. Continue Detrol. DVT prophylaxis. Lovenox renally dosed. The patient is a Full code. Vital Signs Vital Signs Date Time Temp Pulse Resp B/P Pulse Ox O2 Delivery O2 Flow Rate FiO2 10/23/16 09:41 100.2 99 28 96/52 97 4 Laboratory Data Labs 24H Laboratory Tests 2 10/23/16 09:51: Aspartate Amino Transf (AST/SGOT) 20, Alanine Aminotransferase (ALT/SGPT) 20, Alkaline Phosphatase 214H, Total Bilirubin 0.9, Direct Bilirubin 0.6H, Albumin 2.5L, Albumin/Globulin Ratio 0.63L, Anion Gap 9, Atypical Lymphocytes 1, Band Neutrophils 1, Calcium Level 8.1L, Glomerular Filtration Rate 14.4L, Lymphocytes (Manual) 6L, Monocytes (Manual) 7, Neutrophils 85H, Platelet Estimate NORMAL, Prothromb Time International Ratio 1.33, Prothrombin Time 16.6H , Red Blood Cell Morphology NORMAL, Total Protein 6.5 10/23/16 11:53: Urine Amorphous Sediment SMALLH, Urine Appearance TURBIDH, Urine Color BECKY, Urine pH 5.0, Urine Specific Merom 1.016, Urine Protein 3+H, Urine Glucose (UA ) NEGATIVE, Urine Ketones NEGATIVE, Urine Urobilinogen 2.0H, Urine Bilirubin NEGATIVE, Urine Leukocyte Esterase 2+H, Urine Bacteria (Auto) 1+H, Urine Blood 2 +H, Urine Calcium Carbonate Cryst(Auto) , Urine Calcium Oxalate Cryst (Auto) , Urine Calcium Phosphate Sanam (Auto) , Urine Cellular Casts , Urine Cystine Crystals , Urine Granular Casts (Auto) , Urine Hyaline Casts (Auto) 0, Urine Leucine Crystals , Urine Mucus (Auto) MODERATE, Urine Nitrite NEGATIVE, Urine Oval Fat Bodies (Auto) , Urine RBC (Auto) 21H, Urine Renal Epithelial Cells , Urine Sperm (Auto) , Urine Squamous Epithelial Cells 2, Urine Transitional Epithelial Cells , Urine Trichomonas (Auto) , Urine Triple Phosphate Cryst (Auto ) , Urine Tyrosine Crystals , Urine Uric Acid Crystals (Auto) , Urine WBC (Auto ) TNTCH, Urine Waxy Casts (Auto) , Urine Yeast-Like Cells (Auto) CBC/BMP Laboratory Tests 10/23/16 09:51 Microbiology Microbiology 10/23/16 Blood Culture, Received Pending 10/23/16 Blood Culture, Received Pending 10/23/16 Urine Culture, Received Pending Home Medications Scheduled (Dulera 200-5 Mcg/Act) 1 Aer Aer 1 PUFF INH DAILY (Toujeo Solostar) 300 Unit/Ml Inj 150 UNIT SC BID Bupropion HCl (Bupropion HCl Xl) 300 Mg Tab 300 MG PO DAILY Clopidogrel Bisulfate (Plavix) 75 Mg Tab 75 MG PO DAILY Cyclobenzaprine HCl (Cyclobenzaprine HCl) 5 Mg Tab 5 MG PO TID Docusate Sodium (Docusate Sodium) 100 Mg Cap 200 MG PO QHS Duloxetine Hcl (Duloxetine HCl) 60 Mg Cap 60 MG PO DAILY Ferrous Sulfate (Ferrous Sulfate) 325 Mg Tab 325 MG PO DAILY Folic Acid (Folic Acid) 800 Mcg Tab 800 MCG PO DAILY Furosemide (Furosemide) 40 Mg Tab 40 MG PO DAILY Gabapentin (Gabapentin) 300 Mg Cap 600 MG PO TID Insulin (Humulin R U-500 (Concentr) 1 Units/0.002 Ml Inj 90 UNITS SC AC HASN'T USED IN A FEW DAYS, SUGAR LEVEL HAS BEEN LOW Loratadine (Loratadine) 10 Mg Tab 10 MG PO QHS Metoprolol Tartrate (Metoprolol Tartrate) 25 Mg Tab 25 MG PO BID Montelukast Sodium (Singulair) 10 Mg Tab 10 MG PO QHS Niacin (Niacin ER) 500 Mg Tab 500 MG PO BIDWM Nystatin (Nystatin) 100,000 Unit/Gm Cre 1 DOSE EXT BID APPLY UNDER BREASTS AND FOLDS Quinapril Hcl (Quinapril HCl) 20 Mg Tab 20 MG PO BID Ranolazine (Ranexa) 500 Mg Catrina 500 MG PO BID Tolterodine Tartrate (Tolterodine Tartrate) 2 Mg Tab 2 MG PO BID Vitamin D (Drisdol) 50,000 Unit Cap 50,000 UNIT PO QWEEK WEDNESDAY Scheduled PRN (Epipen 2-Singh) 0.3 Mg/0.3 Ml Inj 0.3 MG INJ PRN PRN PRN ALLERGIC REACTION Alprazolam (Xanax) 0.5 Mg Tab 0.5 MG PO BID PRN PRN ANXIETY Diphenhydramine HCl (Diphenhydramine HCl) 25 Mg Cap 25 MG PO Q6H PRN PRN ITCHING Fluticasone Propionate (Fluticasone Propionate 0.05%) 120 [place]/16 Gm Naspr 2 SPRAY NA DAILY PRN PRN NASAL CONGESTION Levalbuterol Tartrate (Xopenex Hfa) 45 Mcg/Act Aer 2 PUFF INH QID PRN PRN SHORTNESS OF BREATH Nitroglycerin (Nitrostat) 0.4 Mg Subl 0.4 MG SL NITRO PRN PRN ANGINA Oxycodone/Acetaminophen (Oxycodone/Acetaminophen 5-325 mg) 1 Tab Tab 1 TAB PO Q4H PRN PRN PAIN Allergies Coded Allergies: Diclofenac (Unverified Allergy, Intermediate, REDNESS, BURNING, 10/01/16) Methocarbamol (Unverified Allergy, Intermediate, HIVES, SOB, 10/01/16) TAPE (Unverified Allergy, Intermediate, RASH, 04/04/15) NSAIDs (Verified Allergy, Unknown, 10/30/13) Aspirin (Verified Adverse Reaction, Intermediate, EDEMA, 04/04/15) Pravastatin (Unverified Adverse Reaction, Intermediate, BODY ACHES, ) Simvastatin (Unverified Adverse Reaction, Intermediate, BODY ACHES, ) Mariposa Rouse Oct 23, 2016 14:14
[2016-10-23] MEDS ORDERED: ACETAMINOPHEN TAB 650MG DOSE (2X325MG) PO ONE (14:30)
[2016-10-23 16:00] VITALS: BP 107/51
[2016-10-23] MEDS: CYCLOBENZAPRINE 5MG TABLET PO SCH ×2 (17:17→21:06)
[2016-10-23] MEDS: GABAPENTIN 300 MG CAP PO SCH ×2 (17:18→21:06)
[2016-10-23] MEDS: ENOXAPARIN 30 MG/0.3 ML SYR (J1650) SC SCH (17:19)
[2016-10-23] MEDS: HumaLOG INSULIN (NovoLOG) PER UNIT SC SCH ×2 (17:19→21:00)
[2016-10-23] MEDS: PERCOCET 5MG/325MG TAB PO PRN ×2 (17:25→22:41)
[2016-10-23] MEDS: NS 1,000 ML IV SCH (17:26)
[2016-10-23 19:54] VITALS: BP 122/63
[2016-10-23] MEDS: LORATADINE 10 MG TAB PO SCH ×2 (20:51→21:00)
[2016-10-23] MEDS: DOCUSATE SODIUM 100 MG CAP PO SCH (21:05)
[2016-10-23] MEDS: TOLTERODINE (DETROL) 2 MG TAB PO SCH (21:05)
[2016-10-23] MEDS: RANOLAZINE 500 MG ER TAB PO SCH (21:05)
[2016-10-23] MEDS: MONTELUKAST 10 MG TAB PO SCH (21:15)
[2016-10-23] MEDS: NYSTATIN CREAM 15 GM EXT SCH (21:15)
[2016-10-23] MEDS: METOPROLOL TART 25 MG TABLET PO SCH (21:17)
[2016-10-23 23:47] VITALS: BP 112/65
[2016-10-24] MEDS: NS 1,000 ML IV SCH ×3 (03:20→23:05)
[2016-10-24 05:25] VITALS: BP 117/62
[2016-10-24 05:36] LABS: BASO % 0.2 % (0.0-1.0); EOS # 0.2 K/mm3 (0.0-0.50); LARGE UNSTAINED CELL # 0.3 K/mm3 (0.0-0.4); LARGE UNSTAINED CELL % 1.8 % (0.0-4.0); MEAN CORPUSCULAR HEMOGLOBIN 31.9 pg (27.0-33.0); MEAN CORPUSCULAR HGB CONC 33.5 g/dl (32.0-36.5); MEAN CORPUSCULAR VOLUME 95.1 fl (80.0-96.0); MONO # 0.7 K/mm3 (0.0-0.8); MONO % 4.7 % (0.0-5.0); NEUTROPHILS # 12.4 K/mm3 (1.8-7.7); NEUTROPHILS % 85.3 % (36.0-66.0); PLATELET COUNT, AUTOMATED 320 k/mm3 (150-450); RED CELL DISTRIBUTION WIDTH 14.2 % (11.5-14.5); WHITE BLOOD COUNT 14.6 K/mm3 (4.0-10.0)
[2016-10-24 05:49] LABS: ALBUMIN 2.2 GM/DL (3.2-5.2); ALBUMIN/GLOBULIN RATIO 0.47 (1.00-1.93); BILIRUBIN,TOTAL 0.9 MG/DL (0.2-1.0); CALCIUM LEVEL 8.2 MG/DL (8.5-10.1); CREATININE FOR GFR 3.57 MG/DL (0.55-1.02); GLOMERULAR FILTRATION RATE 13.9 (>51); POTASSIUM SERUM 4.1 MEQ/L (3.5-5.1); TOTAL PROTEIN 6.9 GM/DL (6.4-8.2)
[2016-10-24 07:45] VITALS: BP 103/56
[2016-10-24] MEDS: METOPROLOL TART 25 MG TABLET PO SCH ×2 (09:00→21:36)
[2016-10-24] MEDS: RANOLAZINE 500 MG ER TAB PO SCH ×2 (09:05→21:35)
[2016-10-24] MEDS: buPROPion **XL** TABLET 150MG (WELLBUTRIN XL) PO SCH (09:05)
[2016-10-24] MEDS: NYSTATIN CREAM 15 GM EXT SCH ×2 (09:05→21:35)
[2016-10-24] MEDS: DULoxetine 30 MG CAP (CYMBALTA) PO SCH (09:06)
[2016-10-24] MEDS: GABAPENTIN 300 MG CAP PO SCH ×3 (09:06→21:35)
[2016-10-24] MEDS: FERROUS SULFATE 325MG TAB PO SCH (09:06)
[2016-10-24] MEDS: CLOPIDOGREL 75 MG TAB PO SCH (09:06)
[2016-10-24] MEDS: CYCLOBENZAPRINE 5MG TABLET PO SCH ×3 (09:06→21:35)
[2016-10-24] MEDS: TOLTERODINE (DETROL) 2 MG TAB PO SCH ×2 (09:06→21:35)
[2016-10-24] MEDS: ENOXAPARIN 30 MG/0.3 ML SYR (J1650) SC SCH (09:07)
[2016-10-24] MEDS: HumaLOG INSULIN (NovoLOG) PER UNIT SC SCH ×4 (09:07→21:00)
[2016-10-24] MEDS: PERCOCET 5MG/325MG TAB PO PRN ×3 (09:13→21:46)
[2016-10-24] MEDS: FLUCONAZOLE 400 MG in APPROPRIATE DILUENT 1 EA IV SCH ×5 (10:28→12:17)
[2016-10-24 12:00] VITALS: BP 125/64
[2016-10-24] MEDS: cefTRIAXone SOD 1 GM in D5W MINI-BAG PLUS 50 ML IV SCH (13:37)
[2016-10-24] MEDS: ALPRAZolam 0.5 MG TAB PO PRN (15:01)
[2016-10-24 16:00] VITALS: BP 125/58
[2016-10-24 19:05] VITALS: BP 115/52
[2016-10-24] MEDS: LORATADINE 10 MG TAB PO SCH (21:35)
[2016-10-24] MEDS: MONTELUKAST 10 MG TAB PO SCH (21:35)
[2016-10-24] MEDS: DOCUSATE SODIUM 100 MG CAP PO SCH (21:35)
--- NOTE | 2016-10-24 22:19 | IPNPDOC ---
Subjective Date Seen The patient was seen on 10/24/16. Subjective Chief Complaint/HPI The patient is a 61-year-old female admitted with a reason for visit of Sepsis Due To Uti. Events since last encounter She reports she is feeling better this morning than she did when she came in. She thinks the new antibiotics are helping. She does report that she is very uncomfortable in the bed she is in and wonders if it's possible to change the bed. It seems to be too low for her and the pain/pressure on her knees when she needs to get up is too much for her to take. General: Reports: Normal Appetite Constitutional: Reports: Weakness, Denies: Chills, Fever ENT: Reports: Ear Pain (left-sided, possible from positioning in the bed), Head Aches Pulmonary: Denies: Cough Cardiovascular: Denies: Chest Pain, Palpitations Genitourinary: Reports: Dysuria Psych: Reports: Mood Normal Objective Physical Examination General Exam: Positive: Alert, Cooperative, No Acute Distress, Other (she is lying in bed with her CPAP still on from the overnight when I entered the room) Eye Exam: Positive: Conjunctiva & lids normal, Negative: Sclera icteric Chest Exam: Positive: Clear to auscultation, Diminished (secondary to extrinsic impression of the chest wall) Heart Exam: Positive: Rate Normal, Negative: Murmurs Abdomen Exam: Positive: Normal bowel sounds, Soft, Negative: Tenderness Skin Exam: Positive: Other skin issue (I did note a yeasty rash under her pannus) Psych Exam: Positive: Mood NL Assessment /Plan Problems (1) Sepsis due to urinary tract infection Status: Acute Response to Treatment: Stable Discussed With: Patient Problem Specific Plan: Monitor Clinically, Repeat Labs Problem Text: She was recently admitted for a urinary tract infection and discharged on nitrofurantoin. Unfortunately I think after that her GFR dropped to the point that this medication was not concentrated enough in her urine and the infection was incompletely treated. She's been admitted again and is now on IV ceftriaxone. Her urine culture is initially reported as grand positive cocci in chains and clusters. Despite having been in the hospital a number of times she never has had MRSA. I am deciding not to add vancomycin to her regimen at this time because of her acute on chronic renal failure. I will monitor this situation closely. (2) Candidemia Status: Acute Discussed With: Patient Problem Specific Plan: Monitor Clinically Problem Text: Her blood culture was also positive for yeast. I strongly suspect that this is Jonna because of the strongly candidal clinical nature of her intertriginous infection. I'm starting her on fluconazole IV. I consulted with the pharmacy on the appropriate dosing because of her super morbid obesity. (3) Acute worsening of stage 3 chronic kidney disease Status: Acute Discussed With: Patient Problem Specific Plan: Repeat Labs Problem Text: I anticipate that she will recover from this with time, but we will need to monitor. I'm trying to avoid any nephrotoxic drugs, and unfortunately this includes many antibiotics that we may otherwise consider using. I'll continue to assess the risks versus benefits of these options. (4) Adult BMI >=70 kg/sq m Status: Chronic Problem Text: Her super morbid obesity complicates nearly every aspect of her care including: drug dosing, mobility, respiratory status, risk for superficial infections, habitus limiting physical examinations, and hygiene. (5) HTN (hypertension) Status: Chronic Response to Treatment: Stable Problem Specific Plan: Monitor Clinically Problem Text: We'll continue her metoprolol with hold parameters. Her Lasix and quinapril are on hold because of the acute on chronic kidney failure. (6) DM2 (diabetes mellitus, type 2) Status: Chronic Problem Specific Plan: Monitor Clinically, Repeat Tests Problem Text: She is requesting to be on her home dose of Tujeo and a sliding scale. However, we have experienced her becoming significantly hypoglycemic in the past when we have used her home regimen with the controlled diet that she has here in the hospital. We will use our sliding scale while she is here. When she goes back to her home environment, presumably her diet will change and her existing regimen may be more appropriate at that time. (7) Obstructive sleep apnea Status: Chronic Discussed With: Nurse Problem Text: Continue home CPAP. Plan/VTE VTE Prophylaxis Ordered?: Yes (Lovenox, SCDs and TEDS) VS, I&O, 24H, Fishbone Vital Signs/I&O Vital Signs Date Time Temp Pulse Resp B/P Pulse Ox O2 Delivery O2 Flow Rate FiO2 10/24/16 21:46 22 NIPPV (BIPAP/CPAP) 4.0 10/24/16 21:36 92 115/52 10/24/16 19:05 99.5 99 I&O- Last 24 Hours up to 6 AM 10/24/16 06:00 Intake Total 310 ml Output Total 101 ml Balance 209 ml Laboratory Data 24H LABS Laboratory Tests 2 10/24/16 04:45: Blood Urea Nitrogen 44H, Creatinine 3.57H, Sodium Level 139, Potassium Level 4.1 , Chloride Level 105, Carbon Dioxide Level 26, Calcium Level 8.2L, Aspartate Amino Transf (AST/SGOT) 20, Alanine Aminotransferase (ALT/SGPT) 18, Alkaline Phosphatase 195H, Total Bilirubin 0.9, Total Protein 6.9, Albumin 2.2L, Albumin/ Globulin Ratio 0.47L, Anion Gap 8, White Blood Count 14.6H, Red Blood Count 2.95L, Hemoglobin 9.4L, Hematocrit 28.0L, Mean Corpuscular Volume 95.1, Mean Corpuscular Hemoglobin 31.9, Mean Corpuscular Hemoglobin Concent 33.5, Red Cell Distribution Width 14.2, Platelet Count 320, Neutrophils (%) (Auto) 85.3H, Lymphocytes (%) (Auto) 7.0L, Monocytes (%) (Auto) 4.7, Eosinophils (%) (Auto) 1.0, Basophils (%) (Auto) 0.2, Neutrophils # (Auto) 12.4H, Lymphocytes # (Auto) 1.0L, Monocytes # (Auto) 0.7, Eosinophils # (Auto) 0.2, Basophils # (Auto) 0.0, Glomerular Filtration Rate 13.9L, Large Unclassified Cells # 0.3, Large Unclassified Cells % 1.8 10/24/16 11:49: Bedside Glucose (Misc Panel) 112H 10/24/16 16:49: Bedside Glucose (Misc Panel) 119H 10/24/16 20:22: Bedside Glucose (Misc Panel) 109H CBC/BMP Laboratory Tests 10/24/16 04:45 Calcium Level 8.2 L, Aspartate Amino Transf (AST/SGOT) 20, Alanine Aminotransferase (ALT/SGPT) 18, Alkaline Phosphatase 195 H, Total Bilirubin 0.9 , Total Protein 6.9, Albumin 2.2 L, Red Blood Count 2.95 L, Mean Corpuscular Volume 95.1, Mean Corpuscular Hemoglobin 31.9, Mean Corpuscular Hemoglobin Concent 33.5, Red Cell Distribution Width 14.2, Neutrophils (%) (Auto) 85.3 H, Lymphocytes (%) (Auto) 7.0 L, Monocytes (%) (Auto) 4.7, Eosinophils (%) (Auto) 1.0, Basophils (%) (Auto) 0.2, Neutrophils # (Auto) 12.4 H, Lymphocytes # (Auto ) 1.0 L, Monocytes # (Auto) 0.7, Eosinophils # (Auto) 0.2, Basophils # (Auto) 0.0 Microbiology Microbiology 10/23/16 Blood Culture - Preliminary, Resulted 10/23/16 Blood Culture - Preliminary, Resulted 10/23/16 Urine Culture, Received Pending Jose Dorsey MD Oct 24, 2016 22:19
[2016-10-24 23:58] VITALS: BP 106/53
[2016-10-25 03:06] VITALS: BP 118/59
[2016-10-25 06:41] LABS: BASO % 0.3 % (0.0-1.0); EOS # 0.2 K/mm3 (0.0-0.50); LARGE UNSTAINED CELL # 0.3 K/mm3 (0.0-0.4); LARGE UNSTAINED CELL % 2.6 % (0.0-4.0); LYMPH % 10.2 % (24.0-44.0); MEAN CORPUSCULAR HEMOGLOBIN 30.4 pg (27.0-33.0); MEAN CORPUSCULAR VOLUME 95.1 fl (80.0-96.0); MONO # 0.5 K/mm3 (0.0-0.8); MONO % 5.1 % (0.0-5.0); NEUTROPHILS # 7.9 K/mm3 (1.8-7.7); NEUTROPHILS % 79.9 % (36.0-66.0); PLATELET COUNT, AUTOMATED 317 k/mm3 (150-450); RED CELL DISTRIBUTION WIDTH 14.2 % (11.5-14.5); WHITE BLOOD COUNT 9.9 K/mm3 (4.0-10.0)
[2016-10-25 07:09] LABS: ALBUMIN/GLOBULIN RATIO 0.43 (1.00-1.93); CREATININE FOR GFR 3.17 MG/DL (0.55-1.02); POTASSIUM SERUM 4.2 MEQ/L (3.5-5.1); TOTAL PROTEIN 6.7 GM/DL (6.4-8.2)
[2016-10-25] MEDS: HumaLOG INSULIN (NovoLOG) PER UNIT SC SCH ×4 (07:30→20:26)
[2016-10-25 08:00] VITALS: BP_SYST 120; BP_SYST 125; BP_DIAS 57; BP_DIAS 68
[2016-10-25] MEDS: ENOXAPARIN 30 MG/0.3 ML SYR (J1650) SC SCH (09:09)
[2016-10-25] MEDS: CLOPIDOGREL 75 MG TAB PO SCH (09:10)
[2016-10-25] MEDS: METOPROLOL TART 25 MG TABLET PO SCH ×2 (09:10→20:36)
[2016-10-25] MEDS: DULoxetine 30 MG CAP (CYMBALTA) PO SCH (09:10)
[2016-10-25] MEDS: RANOLAZINE 500 MG ER TAB PO SCH ×2 (09:10→20:35)
[2016-10-25] MEDS: TOLTERODINE (DETROL) 2 MG TAB PO SCH ×2 (09:11→20:35)
[2016-10-25] MEDS: CYCLOBENZAPRINE 5MG TABLET PO SCH ×3 (09:11→20:35)
[2016-10-25] MEDS: FERROUS SULFATE 325MG TAB PO SCH (09:11)
[2016-10-25] MEDS: buPROPion **XL** TABLET 150MG (WELLBUTRIN XL) PO SCH (09:11)
[2016-10-25] MEDS: GABAPENTIN 300 MG CAP PO SCH ×3 (09:11→20:36)
[2016-10-25] MEDS: ALPRAZolam 0.5 MG TAB PO PRN (09:12)
[2016-10-25] MEDS: ACETAMINOPHEN TAB 650MG DOSE (2X325MG) PO PRN (09:12)
[2016-10-25] MEDS: NYSTATIN CREAM 15 GM EXT SCH ×2 (09:12→20:35)
[2016-10-25] MEDS: FLUCONAZOLE 400 MG in APPROPRIATE DILUENT 1 EA IV SCH (10:16)
[2016-10-25] MEDS: NS 1,000 ML IV SCH ×2 (10:17→20:35)
[2016-10-25 12:00] VITALS: BP 119/56
[2016-10-25] MEDS: cefTRIAXone SOD 1 GM in D5W MINI-BAG PLUS 50 ML IV SCH (12:25)
[2016-10-25 14:20] VITALS: BP 132/62
[2016-10-25] MEDS: PERCOCET 5MG/325MG TAB PO PRN ×2 (16:14→20:46)
--- NOTE | 2016-10-25 16:50 | IPNPDOC ---
Subjective Date Seen The patient was seen on 10/25/16. Subjective Chief Complaint/HPI The patient is a 61-year-old female admitted with a reason for visit of Sepsis Due To Uti. Events since last encounter She reports that overall she is feeling better. She is now on a new room and a new bed and this fits her better. However she continues to have headache. General: Reports: Normal Appetite ENT: Reports: Head Aches Pulmonary: Denies: Cough Cardiovascular: Denies: Chest Pain, Palpitations Genitourinary: Reports: Dysuria Psych: Reports: Mood Normal Objective Physical Examination General Exam: Positive: Alert, Cooperative, No Acute Distress, Other (she is lying in bed resting when I entered the room) Eye Exam: Positive: Conjunctiva & lids normal, Negative: Sclera icteric Chest Exam: Positive: Clear to auscultation, Diminished (secondary to extrinsic impression of the chest wall) Heart Exam: Positive: Rate Normal, Negative: Murmurs Abdomen Exam: Positive: Normal bowel sounds, Soft, Negative: Tenderness Skin Exam: Positive: Other skin issue (I did note a yeasty rash under her pannus) Psych Exam: Positive: Mood NL Assessment /Plan Problems (1) Sepsis due to urinary tract infection Status: Acute Response to Treatment: Stable Discussed With: Patient Problem Specific Plan: Monitor Clinically, Repeat Labs Problem Text: The culture has now definitively grown out Escherichia coli. It appears to be seen pansensitive. The ceftriaxone that she is currently on seems to be working just fine. If her white count continues to trend down and she does not spike a fever I would anticipate changing her to oral antibiotics tomorrow. I do not think something dependent on her renal function is a good idea. (2) Candidemia Status: Acute Discussed With: Patient Problem Specific Plan: Monitor Clinically Problem Text: She is on IV fluconazole. I suspect this is also helping. Consider changing to oral fluconazole if the trend continues to improve. (3) Acute worsening of stage 3 chronic kidney disease Status: Acute Discussed With: Patient Problem Specific Plan: Repeat Labs Problem Text: There has been a slight improvement of her GFR today. This continues to limit our choices of antibiotic for her. Continue to monitor. (4) Adult BMI >=70 kg/sq m Status: Chronic Problem Text: Her super morbid obesity complicates nearly every aspect of her care including: drug dosing, mobility, respiratory status, risk for superficial infections, habitus limiting physical examinations, and hygiene. (5) HTN (hypertension) Status: Chronic Response to Treatment: Stable Problem Specific Plan: Monitor Clinically Problem Text: Her blood pressure is currently well controlled. We'll continue her metoprolol with hold parameters. Her Lasix and quinapril are on hold because of the acute on chronic kidney failure. (6) DM2 (diabetes mellitus, type 2) Status: Chronic Problem Specific Plan: Monitor Clinically, Repeat Tests Problem Text: 10/25 - her blood glucose levels are looking good today. Continue current regimen, monitor. 10/24 - She is requesting to be on her home dose of Tujeo and a sliding scale. However, we have experienced her becoming significantly hypoglycemic in the past when we have used her home regimen with the controlled diet that she has here in the hospital. We will use our sliding scale while she is here. When she goes back to her home environment, presumably her diet will change and her existing regimen may be more appropriate at that time. (7) Obstructive sleep apnea Status: Chronic Discussed With: Nurse Problem Text: Continue home CPAP. (8) Headache Status: Acute Discussed With: Patient Problem Specific Plan: Monitor Clinically Problem Text: I suspect that this relates to the fact that she hit her head when she fell. I re-reviewed the CT of the head that was done in the emergency department and it shows no acute abnormalities. It also may be related to tension from her her positioning in the bed. Unfortunately there is not much we can do to improve her positioning because of her super morbid obesity. She has Flexeril and Percocet available. Plan/VTE VTE Prophylaxis Ordered?: Yes (Lovenox, SCDs and TEDS) VS, I&O, 24H, Fishbone Vital Signs/I&O Vital Signs Date Time Temp Pulse Resp B/P Pulse Ox O2 Delivery O2 Flow Rate FiO2 10/25/16 16:14 18 10/25/16 14:20 98.5 72 132/62 100 Nasal Cannula 4.0 I&O- Last 24 Hours up to 6 AM 10/25/16 06:00 Intake Total 4810 ml Output Total 1550 ml Balance 3260 ml Laboratory Data 24H LABS Laboratory Tests 2 10/24/16 20:22: Bedside Glucose (Misc Panel) 109H 10/25/16 04:41: Blood Urea Nitrogen 42H, Creatinine 3.17H, Sodium Level 139, Potassium Level 4.2 , Chloride Level 106, Carbon Dioxide Level 24, Calcium Level 8.0L, Aspartate Amino Transf (AST/SGOT) 16, Alanine Aminotransferase (ALT/SGPT) 17, Alkaline Phosphatase 276H, Total Bilirubin 1.0, Total Protein 6.7, Albumin 2.0L, Albumin/ Globulin Ratio 0.43L, Anion Gap 9, White Blood Count 9.9, Red Blood Count 2.86L , Hemoglobin 8.7L, Hematocrit 27.2L, Mean Corpuscular Volume 95.1, Mean Corpuscular Hemoglobin 30.4, Mean Corpuscular Hemoglobin Concent 32.0, Red Cell Distribution Width 14.2, Platelet Count 317, Neutrophils (%) (Auto) 79.9H, Lymphocytes (%) (Auto) 10.2L, Monocytes (%) (Auto) 5.1H, Eosinophils (%) (Auto) 2.0, Basophils (%) (Auto) 0.3, Neutrophils # (Auto) 7.9H, Lymphocytes # (Auto) 1.0L, Monocytes # (Auto) 0.5, Eosinophils # (Auto) 0.2, Basophils # (Auto) 0.0, Glomerular Filtration Rate 16.0L, Large Unclassified Cells # 0.3, Large Unclassified Cells % 2.6 10/25/16 11:54: Bedside Glucose (Misc Panel) 104 CBC/BMP Laboratory Tests 10/25/16 04:41 Calcium Level 8.0 L, Aspartate Amino Transf (AST/SGOT) 16, Alanine Aminotransferase (ALT/SGPT) 17, Alkaline Phosphatase 276 H, Total Bilirubin 1.0 , Total Protein 6.7, Albumin 2.0 L, Red Blood Count 2.86 L, Mean Corpuscular Volume 95.1, Mean Corpuscular Hemoglobin 30.4, Mean Corpuscular Hemoglobin Concent 32.0, Red Cell Distribution Width 14.2, Neutrophils (%) (Auto) 79.9 H, Lymphocytes (%) (Auto) 10.2 L, Monocytes (%) (Auto) 5.1 H, Eosinophils (%) (Auto ) 2.0, Basophils (%) (Auto) 0.3, Neutrophils # (Auto) 7.9 H, Lymphocytes # (Auto ) 1.0 L, Monocytes # (Auto) 0.5, Eosinophils # (Auto) 0.2, Basophils # (Auto) 0.0 Microbiology Microbiology 10/23/16 Blood Culture - Preliminary, Resulted 10/23/16 Blood Culture - Final, Complete Escherichia Coli 10/23/16 Urine Culture - Final, Complete Escherichia Coli Jose Dorsey MD Oct 25, 2016 4:50 pm
[2016-10-25] MEDS: DOCUSATE SODIUM 100 MG CAP PO SCH (20:35)
[2016-10-25] MEDS: MONTELUKAST 10 MG TAB PO SCH (20:35)
[2016-10-25] MEDS: LORATADINE 10 MG TAB PO SCH (20:35)
[2016-10-25 22:00] VITALS: BP 133/60
[2016-10-26 06:00] VITALS: BP 135/64
[2016-10-26 06:20] LABS: BASO % 0.4 % (0.0-1.0); EOS # 0.1 K/mm3 (0.0-0.50); EOS % 0.6 % (0.0-3.0); LARGE UNSTAINED CELL # 0.4 K/mm3 (0.0-0.4); LARGE UNSTAINED CELL % 3.7 % (0.0-4.0); LYMPH # 1.4 K/mm3 (1.5-4.5); LYMPH % 8.4 % (24.0-44.0); MEAN CORPUSCULAR HEMOGLOBIN 29.4 pg (27.0-33.0); MEAN CORPUSCULAR HGB CONC 30.7 g/dl (32.0-36.5); MONO # 0.7 K/mm3 (0.0-0.8); MONO % 5.9 % (0.0-5.0); NEUTROPHILS # 9.6 K/mm3 (1.8-7.7); NEUTROPHILS % 81.1 % (36.0-66.0); PLATELET COUNT, AUTOMATED 334 k/mm3 (150-450); RED CELL DISTRIBUTION WIDTH 14.1 % (11.5-14.5); WHITE BLOOD COUNT 11.9 K/mm3 (4.0-10.0)
[2016-10-26 06:38] LABS: ALBUMIN/GLOBULIN RATIO 0.38 (1.00-1.93); CALCIUM LEVEL 8.4 MG/DL (8.5-10.1); CREATININE FOR GFR 2.96 MG/DL (0.55-1.02); GLOMERULAR FILTRATION RATE 17.3 (>51); POTASSIUM SERUM 4.8 MEQ/L (3.5-5.1); TOTAL PROTEIN 7.3 GM/DL (6.4-8.2)
[2016-10-26] MEDS: HumaLOG INSULIN (NovoLOG) PER UNIT SC SCH ×4 (07:42→20:40)
[2016-10-26] MEDS: NYSTATIN CREAM 15 GM EXT SCH ×2 (09:03→20:48)
[2016-10-26] MEDS: RANOLAZINE 500 MG ER TAB PO SCH ×2 (09:03→20:47)
[2016-10-26] MEDS: ENOXAPARIN 30 MG/0.3 ML SYR (J1650) SC SCH (09:03)
[2016-10-26] MEDS: DULoxetine 30 MG CAP (CYMBALTA) PO SCH (09:03)
[2016-10-26] MEDS: TOLTERODINE (DETROL) 2 MG TAB PO SCH ×2 (09:03→20:47)
[2016-10-26] MEDS: CYCLOBENZAPRINE 5MG TABLET PO SCH ×3 (09:04→20:47)
[2016-10-26] MEDS: CLOPIDOGREL 75 MG TAB PO SCH (09:04)
[2016-10-26] MEDS: buPROPion **XL** TABLET 150MG (WELLBUTRIN XL) PO SCH (09:04)
[2016-10-26] MEDS: METOPROLOL TART 25 MG TABLET PO SCH ×2 (09:04→20:47)
[2016-10-26] MEDS: NS 1,000 ML IV SCH ×2 (09:05→20:48)
[2016-10-26] MEDS: GABAPENTIN 300 MG CAP PO SCH ×3 (09:06→20:47)
[2016-10-26] MEDS: FERROUS SULFATE 325MG TAB PO SCH (09:06)
[2016-10-26] MEDS: FLUCONAZOLE 400 MG in APPROPRIATE DILUENT 1 EA IV SCH (09:06)
--- NOTE | 2016-10-26 10:05 | IPNPDOC ---
Subjective Date Seen The patient was seen on 10/26/16. Subjective Chief Complaint/HPI The patient is a 61-year-old female admitted with a reason for visit of Sepsis Due To Uti. Events since last encounter Pt sleeping but wakes to voice. Denies any new issues. Denies pain. Constitutional: Denies: Chills, Fever Pulmonary: Denies: Dyspnea Cardiovascular: Denies: Chest Pain Gastrointestinal: Denies: Abdominal Pain Objective Physical Examination General Exam: Positive: Alert, Cooperative, No Acute Distress, Other (she is lying in bed resting when I entered the room) Eye Exam: Positive: Conjunctiva & lids normal, Negative: Sclera icteric Chest Exam: Positive: Clear to auscultation, Diminished (secondary to extrinsic impression of the chest wall) Heart Exam: Positive: Rate Normal, Negative: Murmurs Abdomen Exam: Positive: Normal bowel sounds, Soft, Negative: Tenderness Psych Exam: Positive: Mood NL Assessment /Plan Problems (1) Sepsis due to urinary tract infection Status: Acute Response to Treatment: Stable Discussed With: Patient Problem Specific Plan: Monitor Clinically, Repeat Labs Problem Text: 10/26 - Blood cx grew out Ecoli (pansensitive), and Staph Capitis (sensitive to everything but Pen, although sensitive to oxacillin). On Ceftriaxone. WBC up slightly to 11.9 (9.9 yesterday. 10/25 - The culture has now definitively grown out Escherichia coli. It appears to be seen pansensitive. The ceftriaxone that she is currently on seems to be working just fine. If her white count continues to trend down and she does not spike a fever I would anticipate changing her to oral antibiotics tomorrow. I do not think something dependent on her renal function is a good idea. (2) Candidemia Status: Acute Discussed With: Patient Problem Specific Plan: Monitor Clinically Problem Text: 10/26 - On IV fluconazole. WBC is up today to 11.9 (was 9.9 yesterday). 10/25 - She is on IV fluconazole. I suspect this is also helping. Consider changing to oral fluconazole if the trend continues to improve. (3) Acute worsening of stage 3 chronic kidney disease Status: Acute Discussed With: Patient Problem Specific Plan: Repeat Labs Problem Text: There has been a slight improvement of her GFR today. This continues to limit our choices of antibiotic for her. Continue to monitor. (4) Adult BMI >=70 kg/sq m Status: Chronic Problem Text: Her super morbid obesity complicates nearly every aspect of her care including: drug dosing, mobility, respiratory status, risk for superficial infections, habitus limiting physical examinations, and hygiene. (5) HTN (hypertension) Status: Chronic Response to Treatment: Stable Problem Specific Plan: Monitor Clinically Problem Text: Her blood pressure is currently well controlled. We'll continue her metoprolol with hold parameters. Her Lasix and quinapril are on hold because of the acute on chronic kidney failure. (6) DM2 (diabetes mellitus, type 2) Status: Chronic Problem Specific Plan: Monitor Clinically, Repeat Tests Problem Text: 10/26 - SSI. 10/25 - her blood glucose levels are looking good today. Continue current regimen , monitor. 10/24 - She is requesting to be on her home dose of Tujeo and a sliding scale. However, we have experienced her becoming significantly hypoglycemic in the past when we have used her home regimen with the controlled diet that she has here in the hospital. We will use our sliding scale while she is here. When she goes back to her home environment, presumably her diet will change and her existing regimen may be more appropriate at that time. (7) Obstructive sleep apnea Status: Chronic Discussed With: Nurse Problem Text: Continue home CPAP. (8) Headache Status: Acute Discussed With: Patient Problem Specific Plan: Monitor Clinically Problem Text: 10/25 - I suspect that this relates to the fact that she hit her head when she fell. I re-reviewed the CT of the head that was done in the emergency department and it shows no acute abnormalities. It also may be related to tension from her her positioning in the bed. Unfortunately there is not much we can do to improve her positioning because of her super morbid obesity. She has Flexeril and Percocet available. Plan/VTE VTE Prophylaxis Ordered?: Yes (Lovenox, SCDs and TEDS) VS, I&O, 24H, Fishbone Vital Signs/I&O Vital Signs Date Time Temp Pulse Resp B/P Pulse Ox O2 Delivery O2 Flow Rate FiO2 10/26/16 09:04 74 139/72 10/26/16 07:45 Nasal Cannula 4.0 10/26/16 06:00 97.9 19 95 I&O- Last 24 Hours up to 6 AM 10/26/16 06:00 Intake Total 3550 ml Output Total 1950 ml Balance 1600 ml Laboratory Data 24H LABS Laboratory Tests 2 10/25/16 11:54: Bedside Glucose (Misc Panel) 104 10/25/16 16:38: Bedside Glucose (Misc Panel) 86 10/25/16 20:15: Bedside Glucose (Misc Panel) 95 10/26/16 05:51: Blood Urea Nitrogen 36H, Creatinine 2.96H, Sodium Level 138, Potassium Level 4.8 , Chloride Level 106, Carbon Dioxide Level 23, Calcium Level 8.4L, Aspartate Amino Transf (AST/SGOT) 15, Alanine Aminotransferase (ALT/SGPT) 17, Alkaline Phosphatase 350H, Total Bilirubin 1.0, Total Protein 7.3, Albumin 2.0L, Albumin/ Globulin Ratio 0.38L, Anion Gap 9, White Blood Count 11.9H, Red Blood Count 3.18L, Hemoglobin 9.4L, Hematocrit 30.6L, Mean Corpuscular Volume 96.0, Mean Corpuscular Hemoglobin 29.4, Mean Corpuscular Hemoglobin Concent 30.7L, Red Cell Distribution Width 14.1, Platelet Count 334, Neutrophils (%) (Auto) 81.1H, Lymphocytes (%) (Auto) 8.4L, Monocytes (%) (Auto) 5.9H, Eosinophils (%) (Auto) 0.6, Basophils (%) (Auto) 0.4, Neutrophils # (Auto) 9.6H, Lymphocytes # (Auto) 1.4L, Monocytes # (Auto) 0.7, Eosinophils # (Auto) 0.1, Basophils # (Auto) 0.0, Glomerular Filtration Rate 17.3L, Large Unclassified Cells # 0.4, Large Unclassified Cells % 3.7 CBC/BMP Laboratory Tests 10/26/16 05:51 Calcium Level 8.4 L, Aspartate Amino Transf (AST/SGOT) 15, Alanine Aminotransferase (ALT/SGPT) 17, Alkaline Phosphatase 350 H, Total Bilirubin 1.0 , Total Protein 7.3, Albumin 2.0 L, Red Blood Count 3.18 L, Mean Corpuscular Volume 96.0, Mean Corpuscular Hemoglobin 29.4, Mean Corpuscular Hemoglobin Concent 30.7 L, Red Cell Distribution Width 14.1, Neutrophils (%) (Auto) 81.1 H , Lymphocytes (%) (Auto) 8.4 L, Monocytes (%) (Auto) 5.9 H, Eosinophils (%) ( Auto) 0.6, Basophils (%) (Auto) 0.4, Neutrophils # (Auto) 9.6 H, Lymphocytes # ( Auto) 1.4 L, Monocytes # (Auto) 0.7, Eosinophils # (Auto) 0.1, Basophils # (Auto ) 0.0 Microbiology Microbiology 10/23/16 Blood Culture - Final, Complete Staphylococcus Capitis 10/23/16 Blood Culture - Final, Complete Escherichia Coli 10/23/16 Urine Culture - Final, Complete Escherichia Coli Gustavo Billingsley RPA-C Oct 26, 2016 10:05
[2016-10-26] MEDS: cefTRIAXone SOD 1 GM in D5W MINI-BAG PLUS 50 ML IV SCH (12:20)
[2016-10-26 14:00] VITALS: BP 121/61
[2016-10-26] MEDS: LORATADINE 10 MG TAB PO SCH (20:47)
[2016-10-26] MEDS: DOCUSATE SODIUM 100 MG CAP PO SCH (20:47)
[2016-10-26] MEDS: MONTELUKAST 10 MG TAB PO SCH (20:47)
[2016-10-26 22:00] VITALS: BP 117/55
[2016-10-26] MEDS: LEVALBUTEROL HFA 45MCG/ACT 15 GM INHALER INH PRN (22:01)
[2016-10-26] MEDS: PERCOCET 5MG/325MG TAB PO PRN (23:13)
[2016-10-27] MEDS: PERCOCET 5MG/325MG TAB PO PRN ×3 (05:44→20:40)
[2016-10-27 06:00] VITALS: BP 109/59
[2016-10-27 07:17] LABS: BASO % 0.5 % (0.0-1.0); EOS # 0.4 K/mm3 (0.0-0.50); EOS % 4.7 % (0.0-3.0); LARGE UNSTAINED CELL # 0.4 K/mm3 (0.0-0.4); LARGE UNSTAINED CELL % 4.6 % (0.0-4.0); LYMPH # 1.3 K/mm3 (1.5-4.5); LYMPH % 15.5 % (24.0-44.0); MEAN CORPUSCULAR HEMOGLOBIN 30.9 pg (27.0-33.0); MEAN CORPUSCULAR HGB CONC 32.5 g/dl (32.0-36.5); MEAN CORPUSCULAR VOLUME 95.1 fl (80.0-96.0); MONO # 0.5 K/mm3 (0.0-0.8); MONO % 5.8 % (0.0-5.0); PLATELET COUNT, AUTOMATED 276 k/mm3 (150-450); RED CELL DISTRIBUTION WIDTH 14.3 % (11.5-14.5); WHITE BLOOD COUNT 8.7 K/mm3 (4.0-10.0)
[2016-10-27 07:21] LABS: ALBUMIN 1.8 GM/DL (3.2-5.2); ALBUMIN/GLOBULIN RATIO 0.37 (1.00-1.93); BILIRUBIN,TOTAL 0.6 MG/DL (0.2-1.0); CALCIUM LEVEL 8.5 MG/DL (8.5-10.1); CREATININE FOR GFR 2.83 MG/DL (0.55-1.02); GLOMERULAR FILTRATION RATE 18.2 (>51); POTASSIUM SERUM 4.6 MEQ/L (3.5-5.1); TOTAL PROTEIN 6.7 GM/DL (6.4-8.2)
[2016-10-27] MEDS: METOPROLOL TART 25 MG TABLET PO SCH ×2 (08:54→20:39)
[2016-10-27] MEDS: CYCLOBENZAPRINE 5MG TABLET PO SCH ×3 (08:55→20:40)
[2016-10-27] MEDS: GABAPENTIN 300 MG CAP PO SCH ×3 (08:55→20:40)
[2016-10-27] MEDS: RANOLAZINE 500 MG ER TAB PO SCH ×2 (08:55→20:39)
[2016-10-27] MEDS: FERROUS SULFATE 325MG TAB PO SCH (08:55)
[2016-10-27] MEDS: DULoxetine 30 MG CAP (CYMBALTA) PO SCH (08:55)
[2016-10-27] MEDS: buPROPion **XL** TABLET 150MG (WELLBUTRIN XL) PO SCH (08:55)
[2016-10-27] MEDS: HumaLOG INSULIN (NovoLOG) PER UNIT SC SCH ×4 (08:55→20:33)
[2016-10-27] MEDS: CLOPIDOGREL 75 MG TAB PO SCH (08:55)
[2016-10-27] MEDS: TOLTERODINE (DETROL) 2 MG TAB PO SCH ×2 (08:55→20:39)
[2016-10-27] MEDS: NYSTATIN CREAM 15 GM EXT SCH ×2 (08:56→20:41)
[2016-10-27] MEDS: ENOXAPARIN 30 MG/0.3 ML SYR (J1650) SC SCH (08:56)
[2016-10-27] MEDS: FLUCONAZOLE 400 MG in APPROPRIATE DILUENT 1 EA IV SCH (08:56)
[2016-10-27] MEDS: LEVALBUTEROL HFA 45MCG/ACT 15 GM INHALER INH PRN (09:11)
[2016-10-27] MEDS: NS 1,000 ML IV SCH ×2 (10:50→23:58)
--- NOTE | 2016-10-27 10:53 | IPNPDOC ---
Subjective Date Seen The patient was seen on 10/27/16. Subjective Chief Complaint/HPI The patient is a 61-year-old female admitted with a reason for visit of Sepsis Due To Uti. Events since last encounter Pt complains of right shoulder pain. States overall breather is better. Denies any more headache. Denies CP, Abd pain. Constitutional: Denies: Chills, Fever Pulmonary: Denies: Dyspnea Cardiovascular: Denies: Chest Pain Gastrointestinal: Denies: Abdominal Pain Objective Physical Examination General Exam: Positive: Alert, Cooperative, No Acute Distress, Other (she is lying in bed resting when I entered the room) Eye Exam: Positive: Conjunctiva & lids normal, Negative: Sclera icteric Chest Exam: Positive: Clear to auscultation, Diminished (secondary to extrinsic impression of the chest wall) Heart Exam: Positive: Rate Normal, Negative: Murmurs Abdomen Exam: Positive: Normal bowel sounds, Soft, Negative: Tenderness Psych Exam: Positive: Mood NL Assessment /Plan Problems (1) Sepsis due to urinary tract infection Status: Acute Response to Treatment: Stable Discussed With: Patient Problem Specific Plan: Monitor Clinically, Repeat Labs Problem Text: 10/27 - Blood cx grew out Ecoli (pansensitive), and Staph Capitis (sensitive to everything but Pen, although sensitive to oxacillin). On Ceftriaxone. WBC down to 8.7. 10/26 - Blood cx grew out Ecoli (pansensitive), and Staph Capitis (sensitive to everything but Pen, although sensitive to oxacillin). On Ceftriaxone. WBC up slightly to 11.9 (9.9 yesterday. 10/25 - The culture has now definitively grown out Escherichia coli. It appears to be seen pansensitive. The ceftriaxone that she is currently on seems to be working just fine. If her white count continues to trend down and she does not spike a fever I would anticipate changing her to oral antibiotics tomorrow. I do not think something dependent on her renal function is a good idea. (2) Candidemia Status: Acute Discussed With: Patient Problem Specific Plan: Monitor Clinically Problem Text: 10/27 - On IV Fluconazole. WBC is down today to 8.7. Will change the Fluconazole from IV to PO. 10/26 - On IV fluconazole. WBC is up today to 11.9 (was 9.9 yesterday). 10/25 - She is on IV fluconazole. I suspect this is also helping. Consider changing to oral fluconazole if the trend continues to improve. (3) Acute worsening of stage 3 chronic kidney disease Status: Acute Discussed With: Patient Problem Specific Plan: Repeat Labs Problem Text: There has been a slight improvement of her GFR today. This continues to limit our choices of antibiotic for her. Continue to monitor. (4) Adult BMI >=70 kg/sq m Status: Chronic Problem Text: Her super morbid obesity complicates nearly every aspect of her care including: drug dosing, mobility, respiratory status, risk for superficial infections, habitus limiting physical examinations, and hygiene. (5) HTN (hypertension) Status: Chronic Response to Treatment: Stable Problem Specific Plan: Monitor Clinically Problem Text: Her blood pressure is currently well controlled. We'll continue her metoprolol with hold parameters. Her Lasix and quinapril are on hold because of the acute on chronic kidney failure. (6) DM2 (diabetes mellitus, type 2) Status: Chronic Problem Specific Plan: Monitor Clinically, Repeat Tests Problem Text: 10/27 - SSI. 10/26 - SSI. 10/25 - her blood glucose levels are looking good today. Continue current regimen , monitor. 10/24 - She is requesting to be on her home dose of Tujeo and a sliding scale. However, we have experienced her becoming significantly hypoglycemic in the past when we have used her home regimen with the controlled diet that she has here in the hospital. We will use our sliding scale while she is here. When she goes back to her home environment, presumably her diet will change and her existing regimen may be more appropriate at that time. (7) Obstructive sleep apnea Status: Chronic Discussed With: Nurse Problem Text: Continue home CPAP. (8) Headache Status: Acute Discussed With: Patient Problem Specific Plan: Monitor Clinically Problem Text: 10/27 - Improved/resolved. 10/25 - I suspect that this relates to the fact that she hit her head when she fell. I re-reviewed the CT of the head that was done in the emergency department and it shows no acute abnormalities. It also may be related to tension from her her positioning in the bed. Unfortunately there is not much we can do to improve her positioning because of her super morbid obesity. She has Flexeril and Percocet available. (9) Right shoulder pain Status: Acute Problem Specific Plan: Monitor Clinically Problem Text: 4/25 - Will order right shoulder xray. Plan/VTE VTE Prophylaxis Ordered?: Yes (Lovenox, SCDs and TEDS) VS, I&O, 24H, Fishbone Vital Signs/I&O Vital Signs Date Time Temp Pulse Resp B/P Pulse Ox O2 Delivery O2 Flow Rate FiO2 10/27/16 09:00 Nasal Cannula 4.0 10/27/16 08:54 67 109/59 10/27/16 06:14 17 10/27/16 06:00 97.1 97 I&O- Last 24 Hours up to 6 AM 10/27/16 06:00 Intake Total 1840 ml Output Total 1650 ml Balance 190 ml Laboratory Data 24H LABS Laboratory Tests 2 10/26/16 11:37: Bedside Glucose (Misc Panel) 152H 10/26/16 17:10: Bedside Glucose (Misc Panel) 121H 10/26/16 20:25: Bedside Glucose (Misc Panel) 160H 10/27/16 06:48: Blood Urea Nitrogen 44H, Creatinine 2.83H, Sodium Level 139, Potassium Level 4.6 , Chloride Level 108H, Carbon Dioxide Level 22, Calcium Level 8.5, Aspartate Amino Transf (AST/SGOT) 10L, Alanine Aminotransferase (ALT/SGPT) 15, Alkaline Phosphatase 307H, Total Bilirubin 0.6, Total Protein 6.7, Albumin 1.8L, Albumin/ Globulin Ratio 0.37L, Anion Gap 9, White Blood Count 8.7, Red Blood Count 2.70L , Hemoglobin 8.3L, Hematocrit 25.7L, Mean Corpuscular Volume 95.1, Mean Corpuscular Hemoglobin 30.9, Mean Corpuscular Hemoglobin Concent 32.5, Red Cell Distribution Width 14.3, Platelet Count 276, Neutrophils (%) (Auto) 69.0H, Lymphocytes (%) (Auto) 15.5L, Monocytes (%) (Auto) 5.8H, Eosinophils (%) (Auto) 4.7H, Basophils (%) (Auto) 0.5, Neutrophils # (Auto) 6.0, Lymphocytes # (Auto) 1.3L, Monocytes # (Auto) 0.5, Eosinophils # (Auto) 0.4, Basophils # (Auto) 0.0, Glomerular Filtration Rate 18.2L, Large Unclassified Cells # 0.4, Large Unclassified Cells % 4.6H CBC/BMP Laboratory Tests 10/27/16 06:48 Calcium Level 8.5, Aspartate Amino Transf (AST/SGOT) 10 L, Alanine Aminotransferase (ALT/SGPT) 15, Alkaline Phosphatase 307 H, Total Bilirubin 0.6 , Total Protein 6.7, Albumin 1.8 L, Red Blood Count 2.70 L, Mean Corpuscular Volume 95.1, Mean Corpuscular Hemoglobin 30.9, Mean Corpuscular Hemoglobin Concent 32.5, Red Cell Distribution Width 14.3, Neutrophils (%) (Auto) 69.0 H, Lymphocytes (%) (Auto) 15.5 L, Monocytes (%) (Auto) 5.8 H, Eosinophils (%) (Auto ) 4.7 H, Basophils (%) (Auto) 0.5, Neutrophils # (Auto) 6.0, Lymphocytes # (Auto ) 1.3 L, Monocytes # (Auto) 0.5, Eosinophils # (Auto) 0.4, Basophils # (Auto) 0.0 Microbiology Microbiology 10/23/16 Blood Culture - Final, Complete Staphylococcus Capitis 10/23/16 Blood Culture - Final, Complete Escherichia Coli 10/23/16 Urine Culture - Final, Complete Escherichia Coli Gustavo Billingsley RPA-C Oct 27, 2016 10:53
[2016-10-27] MEDS: cefTRIAXone SOD 1 GM in D5W MINI-BAG PLUS 50 ML IV SCH (12:37)
[2016-10-27 14:00] VITALS: BP 126/65
[2016-10-27] MEDS ORDERED: BISACODYL 10 MG SUPP PR PRN (19:00)
[2016-10-27] MEDS: MONTELUKAST 10 MG TAB PO SCH (20:40)
[2016-10-27] MEDS: DOCUSATE SODIUM 100 MG CAP PO SCH (20:40)
[2016-10-27] MEDS: LORATADINE 10 MG TAB PO SCH (20:40)
[2016-10-27 22:00] VITALS: BP 124/64
--- NOTE | 2016-10-28 03:37 | REP ---
Clinical: Pain. Technique: Internal rotation, external rotation, and Y view of the right shoulder. Findings: Evaluation is limited due to technical factors and overlying soft tissue structures. Mild spurring and degenerative change at the acromioclavicular joint noted along with mild increased sclerosis and joint space narrowing at the glenohumeral joint. No acute fracture dislocation identified. Impression: Mild age-related degenerative changes are suggested by limited radiographic evaluation. Consider MRI for further more detailed evaluation if necessary. Signed by Allen Rojas MD 10/28/2016 02:31 A
[2016-10-28 06:00] VITALS: BP 117/64
[2016-10-28 07:20] LABS: BASO # 0.1 K/mm3 (0.0-0.2); BASO % 0.8 % (0.0-1.0); EOS # 0.5 K/mm3 (0.0-0.50); LARGE UNSTAINED CELL # 0.3 K/mm3 (0.0-0.4); LARGE UNSTAINED CELL % 4.3 % (0.0-4.0); LYMPH # 1.5 K/mm3 (1.5-4.5); MEAN CORPUSCULAR HEMOGLOBIN 30.6 pg (27.0-33.0); MEAN CORPUSCULAR HGB CONC 31.7 g/dl (32.0-36.5); MEAN CORPUSCULAR VOLUME 96.6 fl (80.0-96.0); MONO # 0.4 K/mm3 (0.0-0.8); MONO % 5.6 % (0.0-5.0); NEUTROPHILS % 64.2 % (36.0-66.0); PLATELET COUNT, AUTOMATED 311 k/mm3 (150-450); RED CELL DISTRIBUTION WIDTH 14.6 % (11.5-14.5); WHITE BLOOD COUNT 7.8 K/mm3 (4.0-10.0)
[2016-10-28 07:50] LABS: ALBUMIN 1.9 GM/DL (3.2-5.2); ALBUMIN/GLOBULIN RATIO 0.38 (1.00-1.93); BILIRUBIN,TOTAL 0.6 MG/DL (0.2-1.0); CALCIUM LEVEL 8.5 MG/DL (8.5-10.1); CREATININE FOR GFR 2.65 MG/DL (0.55-1.02); GLOMERULAR FILTRATION RATE 19.6 (>51); POTASSIUM SERUM 4.5 MEQ/L (3.5-5.1); TOTAL PROTEIN 6.9 GM/DL (6.4-8.2)
[2016-10-28] MEDS: ENOXAPARIN 30 MG/0.3 ML SYR (J1650) SC SCH (08:34)
[2016-10-28] MEDS: HumaLOG INSULIN (NovoLOG) PER UNIT SC SCH ×4 (08:34→20:15)
[2016-10-28] MEDS: METOPROLOL TART 25 MG TABLET PO SCH ×2 (08:35→20:15)
[2016-10-28] MEDS: TOLTERODINE (DETROL) 2 MG TAB PO SCH ×2 (08:36→20:15)
[2016-10-28] MEDS: GABAPENTIN 300 MG CAP PO SCH ×3 (08:36→20:15)
[2016-10-28] MEDS: DULoxetine 30 MG CAP (CYMBALTA) PO SCH (08:38)
[2016-10-28] MEDS: buPROPion **XL** TABLET 150MG (WELLBUTRIN XL) PO SCH (08:38)
[2016-10-28] MEDS: CLOPIDOGREL 75 MG TAB PO SCH (08:39)
[2016-10-28] MEDS: RANOLAZINE 500 MG ER TAB PO SCH ×2 (08:39→20:15)
[2016-10-28] MEDS: CYCLOBENZAPRINE 5MG TABLET PO SCH ×3 (08:39→20:15)
[2016-10-28] MEDS: FERROUS SULFATE 325MG TAB PO SCH (08:39)
[2016-10-28] MEDS: NYSTATIN CREAM 15 GM EXT SCH ×2 (08:41→20:16)
[2016-10-28] MEDS ORDERED: FLUCONAZOLE 50MG TABLET PO SCH (09:00)
--- NOTE | 2016-10-28 09:19 | IPNPDOC ---
Subjective Date Seen The patient was seen on 10/28/16. Subjective Chief Complaint/HPI The patient is a 61-year-old female admitted with a reason for visit of Sepsis Due To Uti. Events since last encounter Pt states she is feeling better overall. Headaches have resolved. Right shoulder pain is better today. Pt does note some occasional confusion particularly at nighttime. Denies any current confusion. Denies CP, Abd pain, SOB. Constitutional: Reports: Chills, Fever Pulmonary: Reports: Dyspnea Cardiovascular: Reports: Chest Pain Gastrointestinal: Reports: Abdominal Pain Objective Physical Examination General Exam: Positive: Alert, Cooperative, No Acute Distress, Other (she is lying in bed resting when I entered the room) Eye Exam: Positive: Conjunctiva & lids normal, Negative: Sclera icteric Chest Exam: Positive: Clear to auscultation, Diminished (secondary to extrinsic impression of the chest wall) Heart Exam: Positive: Rate Normal, Negative: Murmurs Abdomen Exam: Positive: Normal bowel sounds, Soft, Negative: Tenderness Extremity Exam: Positive: Other (right shoulder with decreased ROM but improved today compared to yesterday. Mild anterior right shoulder TTP) Psych Exam: Positive: Mood NL Assessment /Plan Problems (1) Sepsis due to urinary tract infection Status: Acute Response to Treatment: Stable Discussed With: Patient Problem Specific Plan: Monitor Clinically, Repeat Labs Problem Text: 10/28 - Blood cx grew out Ecoli (pansensitive), and Staph Capitis (sensitive to everything but Pen, although sensitive to oxacillin). On Ceftriaxone. WBC down to 7.8. Diflucan was D/c'ed yesterday. 10/27 - Blood cx grew out Ecoli (pansensitive), and Staph Capitis (sensitive to everything but Pen, although sensitive to oxacillin). On Ceftriaxone. WBC down to 8.7. 10/26 - Blood cx grew out Ecoli (pansensitive), and Staph Capitis (sensitive to everything but Pen, although sensitive to oxacillin). On Ceftriaxone. WBC up slightly to 11.9 (9.9 yesterday. 10/25 - The culture has now definitively grown out Escherichia coli. It appears to be seen pansensitive. The ceftriaxone that she is currently on seems to be working just fine. If her white count continues to trend down and she does not spike a fever I would anticipate changing her to oral antibiotics tomorrow. I do not think something dependent on her renal function is a good idea. (2) Candidemia Status: Acute Discussed With: Patient Problem Specific Plan: Monitor Clinically Problem Text: 10/28 - Fluconazole was d/c'ed. 10/27 - On IV Fluconazole. WBC is down today to 8.7. Will change the Fluconazole from IV to PO. 10/26 - On IV fluconazole. WBC is up today to 11.9 (was 9.9 yesterday). 10/25 - She is on IV fluconazole. I suspect this is also helping. Consider changing to oral fluconazole if the trend continues to improve. (3) Acute worsening of stage 3 chronic kidney disease Status: Acute Discussed With: Patient Problem Specific Plan: Repeat Labs Problem Text: 10/28 - BUN 40/ Creat 2.65/ GFR 19.6. Slowly trending down. Fluconazole was d/c'ed yesterday. There has been a slight improvement of her GFR today. This continues to limit our choices of antibiotic for her. Continue to monitor. (4) Adult BMI >=70 kg/sq m Status: Chronic Problem Text: Her super morbid obesity complicates nearly every aspect of her care including: drug dosing, mobility, respiratory status, risk for superficial infections, habitus limiting physical examinations, and hygiene. (5) HTN (hypertension) Status: Chronic Response to Treatment: Stable Problem Specific Plan: Monitor Clinically Problem Text: Her blood pressure is currently well controlled. We'll continue her metoprolol with hold parameters. Her Lasix and quinapril are on hold because of the acute on chronic kidney failure. (6) DM2 (diabetes mellitus, type 2) Status: Chronic Problem Specific Plan: Monitor Clinically, Repeat Tests Problem Text: On SSI 10/25 - her blood glucose levels are looking good today. Continue current regimen , monitor. 10/24 - She is requesting to be on her home dose of Tujeo and a sliding scale. However, we have experienced her becoming significantly hypoglycemic in the past when we have used her home regimen with the controlled diet that she has here in the hospital. We will use our sliding scale while she is here. When she goes back to her home environment, presumably her diet will change and her existing regimen may be more appropriate at that time. (7) Obstructive sleep apnea Status: Chronic Discussed With: Nurse Problem Text: Continue home CPAP. (8) Headache Status: Acute Discussed With: Patient Problem Specific Plan: Monitor Clinically Problem Text: 10/28 - resolved. 10/27 - Improved/resolved. 10/25 - I suspect that this relates to the fact that she hit her head when she fell. I re-reviewed the CT of the head that was done in the emergency department and it shows no acute abnormalities. It also may be related to tension from her her positioning in the bed. Unfortunately there is not much we can do to improve her positioning because of her super morbid obesity. She has Flexeril and Percocet available. (9) Right shoulder pain Status: Acute Problem Specific Plan: Monitor Clinically Problem Text: 10/28 - Right shoulder XRAY: "Mild age-related degenerative changes are suggested by limited radiographic evaluation. Consider MRI for further more detailed evaluation if necessary." Pt states her shoulder pain has decreased and her ROM is better. Will order PT. Consider the MRI if symptoms worsen. 10/27 - Will order right shoulder xray. Plan/VTE VTE Prophylaxis Ordered?: Yes (Lovenox, SCDs and TEDS) VS, I&O, 24H, Fishbone Vital Signs/I&O Vital Signs Date Time Temp Pulse Resp B/P (MAP) Pulse Ox O2 Delivery O2 Flow Rate FiO2 10/28/16 08:35 72 157/71 10/28/16 06:00 97.4 18 96 Nasal Cannula 4.0 I&O- Last 24 Hours up to 6 AM 10/28/16 06:00 Intake Total 2100 ml Output Total 1325 ml Balance 775 ml Laboratory Data 24H LABS Laboratory Tests 2 10/27/16 11:56: Bedside Glucose (Misc Panel) 127H 10/27/16 16:54: Bedside Glucose (Misc Panel) 115H 10/27/16 20:25: Bedside Glucose (Misc Panel) 155H 10/28/16 06:54: White Blood Count 7.8, Red Blood Count 2.83L, Hemoglobin 8.7L, Hematocrit 27.3L , Mean Corpuscular Volume 96.6H, Mean Corpuscular Hemoglobin 30.6, Mean Corpuscular Hemoglobin Concent 31.7L, Red Cell Distribution Width 14.6H, Platelet Count 311, Neutrophils (%) (Auto) 64.2, Lymphocytes (%) (Auto) 19.0L, Monocytes (%) (Auto) 5.6H, Eosinophils (%) (Auto) 6.0H, Basophils (%) (Auto) 0.8 , Neutrophils # (Auto) 5.0, Lymphocytes # (Auto) 1.5, Monocytes # (Auto) 0.4, Eosinophils # (Auto) 0.5, Basophils # (Auto) 0.1, Large Unclassified Cells % 4.3H, Large Unclassified Cells # 0.3, Anion Gap 9, Glomerular Filtration Rate 19.6L, Blood Urea Nitrogen 40H, Creatinine 2.65H, Sodium Level 140, Potassium Level 4.5, Chloride Level 108H, Carbon Dioxide Level 23, Calcium Level 8.5, Aspartate Amino Transf (AST/SGOT) 14L, Alanine Aminotransferase (ALT/SGPT) 15, Alkaline Phosphatase 326H, Total Bilirubin 0.6, Total Protein 6.9, Albumin 1.9L , Albumin/Globulin Ratio 0.38L CBC/BMP Laboratory Tests 10/28/16 06:54 Red Blood Count 2.83 L, Mean Corpuscular Volume 96.6 H, Mean Corpuscular Hemoglobin 30.6, Mean Corpuscular Hemoglobin Concent 31.7 L, Red Cell Distribution Width 14.6 H, Neutrophils (%) (Auto) 64.2, Lymphocytes (%) (Auto) 19.0 L, Monocytes (%) (Auto) 5.6 H, Eosinophils (%) (Auto) 6.0 H, Basophils (%) (Auto) 0.8, Neutrophils # (Auto) 5.0, Lymphocytes # (Auto) 1.5, Monocytes # ( Auto) 0.4, Eosinophils # (Auto) 0.5, Basophils # (Auto) 0.1, Calcium Level 8.5, Aspartate Amino Transf (AST/SGOT) 14 L, Alanine Aminotransferase (ALT/SGPT) 15, Alkaline Phosphatase 326 H, Total Bilirubin 0.6, Total Protein 6.9, Albumin 1.9 L Microbiology Microbiology 10/23/16 Blood Culture - Final, Complete Staphylococcus Capitis 10/23/16 Blood Culture - Final, Complete Escherichia Coli 10/23/16 Urine Culture - Final, Complete Escherichia Coli Gustavo Billingsley RPA-C Oct 28, 2016 09:19
[2016-10-28] MEDS: cefTRIAXone SOD 1 GM in D5W MINI-BAG PLUS 50 ML IV SCH (12:41)
[2016-10-28 14:00] VITALS: BP 130/71
[2016-10-28] MEDS: NS 1,000 ML IV SCH (15:40)
[2016-10-28 19:03] LABS: ABG BASE EXCESS -4.8 (-2.0-2.0); ABG HCO3 21.1 MEQ/L (22.0-26.0); ABG PARTIAL PRESSURE CO2 42.1 mmHg (35.0-45.0); ABG PARTIAL PRESSURE O2 108.7 mmHg (75.0-100.0); ABG STANDARD HCO3 20.5 MEQ/L (22.0-26.0); ABG TOTAL CO2 22.4 MEQ/L (22.0-29.0); ABG pH (ARTERIAL) 7.317 UNITS (7.350-7.450)
[2016-10-28] MEDS: LORATADINE 10 MG TAB PO SCH (20:15)
[2016-10-28] MEDS: DOCUSATE SODIUM 100 MG CAP PO SCH (20:15)
[2016-10-28] MEDS: MONTELUKAST 10 MG TAB PO SCH (20:15)
[2016-10-28] MEDS: PERCOCET 5MG/325MG TAB PO PRN (20:16)
[2016-10-28 22:50] VITALS: BP 134/67
[2016-10-29] MEDS: PERCOCET 5MG/325MG TAB PO PRN (00:53)
[2016-10-29] MEDS: NS 1,000 ML IV SCH ×2 (04:50→15:14)
[2016-10-29 06:00] VITALS: BP 149/67
[2016-10-29 06:56] LABS: BASO # 0.1 K/mm3 (0.0-0.2); BASO % 1.4 % (0.0-1.0); EOS # 0.5 K/mm3 (0.0-0.50); EOS % 6.6 % (0.0-3.0); LARGE UNSTAINED CELL # 0.4 K/mm3 (0.0-0.4); LARGE UNSTAINED CELL % 5.1 % (0.0-4.0); LYMPH # 2.3 K/mm3 (1.5-4.5); LYMPH % 23.5 % (24.0-44.0); MEAN CORPUSCULAR HEMOGLOBIN 28.4 pg (27.0-33.0); MEAN CORPUSCULAR HGB CONC 29.8 g/dl (32.0-36.5); MEAN CORPUSCULAR VOLUME 95.5 fl (80.0-96.0); MONO # 0.4 K/mm3 (0.0-0.8); MONO % 4.8 % (0.0-5.0); NEUTROPHILS # 4.8 K/mm3 (1.8-7.7); NEUTROPHILS % 58.6 % (36.0-66.0); PLATELET COUNT, AUTOMATED 354 k/mm3 (150-450); RED CELL DISTRIBUTION WIDTH 14.5 % (11.5-14.5); WHITE BLOOD COUNT 8.1 K/mm3 (4.0-10.0)
[2016-10-29 07:15] LABS: ALBUMIN 1.9 GM/DL (3.2-5.2); ALBUMIN/GLOBULIN RATIO 0.37 (1.00-1.93); BILIRUBIN,TOTAL 0.5 MG/DL (0.2-1.0); CALCIUM LEVEL 8.4 MG/DL (8.5-10.1); CREATININE FOR GFR 2.55 MG/DL (0.55-1.02); GLOMERULAR FILTRATION RATE 20.5 (>51); POTASSIUM SERUM 4.5 MEQ/L (3.5-5.1)
--- NOTE | 2016-10-29 08:52 | IPNPDOC ---
Subjective Date Seen The patient was seen on 10/29/16. Subjective Chief Complaint/HPI The patient is a 61-year-old female admitted with a reason for visit of Sepsis Due To Uti. Events since last encounter Pt fell last night. States her knees gave way. She believes she landed on her knees and hit her head but did not lose consciousness. She denies any headaches or current fall related pain. Still with some SOB. Denies CP or Abd pain. Has still been having some occasional confusion. States her right shoulder pain is better. Constitutional: Denies: Chills, Fever Pulmonary: Reports: Dyspnea Cardiovascular: Denies: Chest Pain Gastrointestinal: Denies: Abdominal Pain Objective Physical Examination General Exam: Positive: Alert, Cooperative, No Acute Distress, Other (she is lying in bed resting when I entered the room) Eye Exam: Positive: Conjunctiva & lids normal, Negative: Sclera icteric Chest Exam: Positive: Clear to auscultation, Diminished (secondary to extrinsic impression of the chest wall) Heart Exam: Positive: Rate Normal, Negative: Murmurs Abdomen Exam: Positive: Normal bowel sounds, Soft, Negative: Tenderness Extremity Exam: Positive: Other (right shoulder with decreased ROM but improved today compared to yesterday. Mild anterior right shoulder TTP) Psych Exam: Positive: Mood NL Assessment /Plan Problems (1) Sepsis due to urinary tract infection Status: Acute Response to Treatment: Stable Discussed With: Patient Problem Specific Plan: Monitor Clinically, Repeat Labs Problem Text: 10/29 - Blood cx grew out Ecoli (pansensitive), and Staph Capitis (sensitive to everything but Pen, although sensitive to oxacillin). On Ceftriaxone. WBC 8.1. Diflucan was D/c'ed. 10/28 - Blood cx grew out Ecoli (pansensitive), and Staph Capitis (sensitive to everything but Pen, although sensitive to oxacillin). On Ceftriaxone. WBC down to 7.8. Diflucan was D/c'ed yesterday. 10/27 - Blood cx grew out Ecoli (pansensitive), and Staph Capitis (sensitive to everything but Pen, although sensitive to oxacillin). On Ceftriaxone. WBC down to 8.7. 10/26 - Blood cx grew out Ecoli (pansensitive), and Staph Capitis (sensitive to everything but Pen, although sensitive to oxacillin). On Ceftriaxone. WBC up slightly to 11.9 (9.9 yesterday. 10/25 - The culture has now definitively grown out Escherichia coli. It appears to be seen pansensitive. The ceftriaxone that she is currently on seems to be working just fine. If her white count continues to trend down and she does not spike a fever I would anticipate changing her to oral antibiotics tomorrow. I do not think something dependent on her renal function is a good idea. (2) Candidemia Status: Acute Discussed With: Patient Problem Specific Plan: Monitor Clinically Problem Text: 10/29 - Fluconazole was d/c'ed on 10/27. 10/28 - Fluconazole was d/c'ed. 10/27 - On IV Fluconazole. WBC is down today to 8.7. Will change the Fluconazole from IV to PO. 10/26 - On IV fluconazole. WBC is up today to 11.9 (was 9.9 yesterday). 10/25 - She is on IV fluconazole. I suspect this is also helping. Consider changing to oral fluconazole if the trend continues to improve. (3) Acute worsening of stage 3 chronic kidney disease Status: Acute Discussed With: Patient Problem Specific Plan: Repeat Labs Problem Text: 10/29 - BUN 36/ Creat 2.55/ GFR 20.5. Slowly trending down. Fluconazole was d/c'ed 10/27. 10/28 - BUN 40/ Creat 2.65/ GFR 19.6. Slowly trending down. Fluconazole was d/c 'ed yesterday. There has been a slight improvement of her GFR today. This continues to limit our choices of antibiotic for her. Continue to monitor. (4) Adult BMI >=70 kg/sq m Status: Chronic Problem Text: Her super morbid obesity complicates nearly every aspect of her care including: drug dosing, mobility, respiratory status, risk for superficial infections, habitus limiting physical examinations, and hygiene. (5) HTN (hypertension) Status: Chronic Response to Treatment: Stable Problem Specific Plan: Monitor Clinically Problem Text: Her blood pressure is currently well controlled. We'll continue her metoprolol with hold parameters. Her Lasix and quinapril are on hold because of the acute on chronic kidney failure. (6) DM2 (diabetes mellitus, type 2) Status: Chronic Problem Specific Plan: Monitor Clinically, Repeat Tests Problem Text: On SSI 10/25 - her blood glucose levels are looking good today. Continue current regimen , monitor. 10/24 - She is requesting to be on her home dose of Tujeo and a sliding scale. However, we have experienced her becoming significantly hypoglycemic in the past when we have used her home regimen with the controlled diet that she has here in the hospital. We will use our sliding scale while she is here. When she goes back to her home environment, presumably her diet will change and her existing regimen may be more appropriate at that time. (7) Obstructive sleep apnea Status: Chronic Discussed With: Nurse Problem Text: Continue home CPAP. (8) Headache Status: Acute Discussed With: Patient Problem Specific Plan: Monitor Clinically Problem Text: 10/29 - Slight headache after fall last night but improved/ resolved today. 10/28 - resolved. 10/27 - Improved/resolved. 10/25 - I suspect that this relates to the fact that she hit her head when she fell. I re-reviewed the CT of the head that was done in the emergency department and it shows no acute abnormalities. It also may be related to tension from her her positioning in the bed. Unfortunately there is not much we can do to improve her positioning because of her super morbid obesity. She has Flexeril and Percocet available. (9) Right shoulder pain Status: Acute Problem Specific Plan: Monitor Clinically Problem Text: 10/29 - Right shoulder improving with PT. 10/28 - Right shoulder XRAY: "Mild age-related degenerative changes are suggested by limited radiographic evaluation. Consider MRI for further more detailed evaluation if necessary." Pt states her shoulder pain has decreased and her ROM is better. Will order PT. Consider the MRI if symptoms worsen. 10/27 - Will order right shoulder xray. (10) Fall Status: Acute Problem Specific Plan: Monitor Clinically Problem Text: 10/29 - Pt sustained a fall last night. No current symptoms. (11) Confusion Status: Acute Problem Specific Plan: Monitor Clinically Problem Text: 10/29 - Some intermittent confusion. Will stop the Percocet and xanax (has not been using the xanax in days). Plan/VTE VTE Prophylaxis Ordered?: Yes (Lovenox, SCDs and TEDS) VS, I&O, 24H, Fishbone Vital Signs/I&O Vital Signs Date Time Temp Pulse Resp B/P (MAP) Pulse Ox O2 Delivery O2 Flow Rate FiO2 10/29/16 06:00 96.6 71 19 149/67 (94) 92 Nasal Cannula 4.0 I&O- Last 24 Hours up to 6 AM 10/29/16 05:59 Intake Total 3605 ml Output Total 500 ml Balance 3105 ml Laboratory Data 24H LABS Laboratory Tests 2 10/28/16 18:53: Blood Gas Bicarbonate Standard 20.5L, Arterial Blood pH 7.317L, Arterial Blood Partial Pressure CO2 42.1, Arterial Blood Partial Pressure O2 108.7H, Arterial Blood Total CO2 22.4, Arterial Blood HCO3 21.1L, Arterial Blood Base Excess - 4.8L, Arterial Blood Oxygen Saturation 97.8 10/29/16 06:43: White Blood Count 8.1, Red Blood Count 3.00L, Hemoglobin 8.5L, Hematocrit 28.6L , Mean Corpuscular Volume 95.5, Mean Corpuscular Hemoglobin 28.4, Mean Corpuscular Hemoglobin Concent 29.8L, Red Cell Distribution Width 14.5, Platelet Count 354, Neutrophils (%) (Auto) 58.6, Lymphocytes (%) (Auto) 23.5L, Monocytes (%) (Auto) 4.8, Eosinophils (%) (Auto) 6.6H, Basophils (%) (Auto) 1.4H , Neutrophils # (Auto) 4.8, Lymphocytes # (Auto) 2.3, Monocytes # (Auto) 0.4, Eosinophils # (Auto) 0.5, Basophils # (Auto) 0.1, Large Unclassified Cells % 5.1H, Large Unclassified Cells # 0.4, Anion Gap 7L, Glomerular Filtration Rate 20.5L, Blood Urea Nitrogen 36H, Creatinine 2.55H, Sodium Level 142, Potassium Level 4.5, Chloride Level 110H, Carbon Dioxide Level 25, Calcium Level 8.4L, Aspartate Amino Transf (AST/SGOT) 16, Alanine Aminotransferase (ALT/SGPT) 18, Alkaline Phosphatase 398H, Total Bilirubin 0.5, Total Protein 7.0, Albumin 1.9L , Albumin/Globulin Ratio 0.37L CBC/BMP Laboratory Tests 10/29/16 06:43 Red Blood Count 3.00 L, Mean Corpuscular Volume 95.5, Mean Corpuscular Hemoglobin 28.4, Mean Corpuscular Hemoglobin Concent 29.8 L, Red Cell Distribution Width 14.5, Neutrophils (%) (Auto) 58.6, Lymphocytes (%) (Auto) 23.5 L, Monocytes (%) (Auto) 4.8, Eosinophils (%) (Auto) 6.6 H, Basophils (%) ( Auto) 1.4 H, Neutrophils # (Auto) 4.8, Lymphocytes # (Auto) 2.3, Monocytes # ( Auto) 0.4, Eosinophils # (Auto) 0.5, Basophils # (Auto) 0.1, Calcium Level 8.4 L , Aspartate Amino Transf (AST/SGOT) 16, Alanine Aminotransferase (ALT/SGPT) 18, Alkaline Phosphatase 398 H, Total Bilirubin 0.5, Total Protein 7.0, Albumin 1.9 L Microbiology Microbiology 10/23/16 Blood Culture - Final, Complete Staphylococcus Capitis 10/23/16 Blood Culture - Final, Complete Escherichia Coli 10/23/16 Urine Culture - Final, Complete Escherichia Coli Gustavo Billingsley RPA-C Oct 29, 2016 08:52
[2016-10-29] MEDS: TOLTERODINE (DETROL) 2 MG TAB PO SCH ×2 (09:01→21:40)
[2016-10-29] MEDS: buPROPion **XL** TABLET 150MG (WELLBUTRIN XL) PO SCH (09:02)
[2016-10-29] MEDS: DULoxetine 30 MG CAP (CYMBALTA) PO SCH (09:02)
[2016-10-29] MEDS: FERROUS SULFATE 325MG TAB PO SCH (09:02)
[2016-10-29] MEDS: METOPROLOL TART 25 MG TABLET PO SCH ×2 (09:02→21:35)
[2016-10-29] MEDS: CLOPIDOGREL 75 MG TAB PO SCH (09:02)
[2016-10-29] MEDS: RANOLAZINE 500 MG ER TAB PO SCH ×2 (09:02→21:33)
[2016-10-29] MEDS: CYCLOBENZAPRINE 5MG TABLET PO SCH ×3 (09:02→21:33)
[2016-10-29] MEDS: GABAPENTIN 300 MG CAP PO SCH ×3 (09:02→21:33)
[2016-10-29] MEDS: ENOXAPARIN 30 MG/0.3 ML SYR (J1650) SC SCH (09:03)
[2016-10-29] MEDS: NYSTATIN CREAM 15 GM EXT SCH ×2 (09:04→21:40)
[2016-10-29] MEDS: HumaLOG INSULIN (NovoLOG) PER UNIT SC SCH ×4 (09:04→21:00)
[2016-10-29] MEDS: cefTRIAXone SOD 1 GM in D5W MINI-BAG PLUS 50 ML IV SCH (11:36)
[2016-10-29 14:00] VITALS: BP 174/81
[2016-10-29] MEDS: traMADol 50 MG TAB PO PRN ×2 (15:13→21:41)
[2016-10-29] MEDS: ACETAMINOPHEN TAB 650MG DOSE (2X325MG) PO PRN ×2 (15:14→21:40)
--- NOTE | 2016-10-29 16:13 | ECGEPIP ---
Stationary ECG Study [facility] Test Date: 2016-10-29 Pat Name: NUNO PATEL Department: Room: [place] [address] Gender: F [employer] Technician: REENA : 1955 Requested By: DEWAYNE GEE Order Number: [id number] Reading MD: Eb Gamboa Measurements Intervals [place] Rate: 64 P: 37 KS: 155 QRS: -48 QRSD: 154 T: 44 QT: 472 QTc: 488 Interpretive Statements Normal sinus rhythm Left anterior fascicular block and right bundle branch block Nonspecific T wave abnormality No significant change when compared to prior tracing of 12/10/2015 Electronically Signed On 10-29-2016 16:13:01 EDT by Eb Gamboa
[2016-10-29] MEDS: DOCUSATE SODIUM 100 MG CAP PO SCH (21:33)
[2016-10-29] MEDS: LORATADINE 10 MG TAB PO SCH (21:34)
[2016-10-29] MEDS: MONTELUKAST 10 MG TAB PO SCH (21:34)
[2016-10-29 22:00] VITALS: BP 170/75
[2016-10-30] MEDS: NS 1,000 ML IV SCH (05:26)
[2016-10-30 07:01] LABS: BASO # 0.1 K/mm3 (0.0-0.2); BASO % 1.1 % (0.0-1.0); EOS # 0.5 K/mm3 (0.0-0.50); EOS % 6.8 % (0.0-3.0); LARGE UNSTAINED CELL # 0.3 K/mm3 (0.0-0.4); LARGE UNSTAINED CELL % 4.1 % (0.0-4.0); LYMPH # 1.7 K/mm3 (1.5-4.5); LYMPH % 21.3 % (24.0-44.0); MEAN CORPUSCULAR HEMOGLOBIN 29.1 pg (27.0-33.0); MEAN CORPUSCULAR VOLUME 96.9 fl (80.0-96.0); MONO # 0.3 K/mm3 (0.0-0.8); MONO % 3.9 % (0.0-5.0); NEUTROPHILS % 62.7 % (36.0-66.0); PLATELET COUNT, AUTOMATED 365 k/mm3 (150-450); RED CELL DISTRIBUTION WIDTH 14.5 % (11.5-14.5)
[2016-10-30 07:09] LABS: ALBUMIN/GLOBULIN RATIO 0.41 (1.00-1.93); BILIRUBIN,TOTAL 0.5 MG/DL (0.2-1.0); CALCIUM LEVEL 8.6 MG/DL (8.5-10.1); CREATININE FOR GFR 2.13 MG/DL (0.55-1.02); GLOMERULAR FILTRATION RATE 25.2 (>51); TOTAL PROTEIN 6.9 GM/DL (6.4-8.2)
--- NOTE | 2016-10-30 08:21 | IPNPDOC ---
Subjective Date Seen The patient was seen on 10/30/16. Subjective Chief Complaint/HPI The patient is a 61-year-old female admitted with a reason for visit of Sepsis Due To Uti. Events since last encounter OOB to chair this am. C/o right knee pain since fall 2 days ago. Constitutional: Denies: Chills, Fever, Night Sweats Skin: Denies: Rash, Lesions, Breakdown Pulmonary: Denies: Dyspnea, Cough Cardiovascular: Denies: Chest Pain, Palpitations, Orthopnea, Paroxysmal Noc. Dyspnea, Lt Headedness Gastrointestinal: Denies: Nausea, Vomiting, Abdominal Pain, Diarrhea, Constipation Genitourinary: Denies: Dysuria, Frequency, Incontinence, Retention Musculoskeletal: Reports: Other Symptoms (right knee pain) Psych: Reports: Mood Normal, Denies: Depression, Memory Issues Objective Physical Examination General Exam: Positive: Alert, Cooperative, No Acute Distress, Other (she is lying in bed resting when I entered the room) Eye Exam: Positive: Conjunctiva & lids normal, Negative: Sclera icteric Chest Exam: Positive: Clear to auscultation, Diminished (secondary to extrinsic impression of the chest wall) Heart Exam: Positive: Rate Normal, Negative: Murmurs Abdomen Exam: Positive: Normal bowel sounds, Soft, Negative: Tenderness Extremity Exam: Negative: Edema Psych Exam: Positive: Mood NL Assessment /Plan Problems (1) Sepsis due to urinary tract infection Status: Acute Response to Treatment: Stable Discussed With: Patient Problem Specific Plan: Monitor Clinically, Repeat Labs Problem Text: 10/30/2016: Day 7 IV Ceftriaxone. Afebrile. WBC stable at 8.0 10/29 - Blood cx grew out Ecoli (pansensitive), and Staph Capitis (sensitive to everything but Pen, although sensitive to oxacillin). On Ceftriaxone. WBC 8.1. Diflucan was D/c'ed. 10/28 - Blood cx grew out Ecoli (pansensitive), and Staph Capitis (sensitive to everything but Pen, although sensitive to oxacillin). On Ceftriaxone. WBC down to 7.8. Diflucan was D/c'ed yesterday. 10/27 - Blood cx grew out Ecoli (pansensitive), and Staph Capitis (sensitive to everything but Pen, although sensitive to oxacillin). On Ceftriaxone. WBC down to 8.7. 10/26 - Blood cx grew out Ecoli (pansensitive), and Staph Capitis (sensitive to everything but Pen, although sensitive to oxacillin). On Ceftriaxone. WBC up slightly to 11.9 (9.9 yesterday. 10/25 - The culture has now definitively grown out Escherichia coli. It appears to be seen pansensitive. The ceftriaxone that she is currently on seems to be working just fine. If her white count continues to trend down and she does not spike a fever I would anticipate changing her to oral antibiotics tomorrow. I do not think something dependent on her renal function is a good idea. (2) Acute worsening of stage 3 chronic kidney disease Status: Acute Discussed With: Patient Problem Specific Plan: Repeat Labs Problem Text: 10/29 - BUN 36/ Creat 2.55/ GFR 20.5. Slowly trending down. Fluconazole was d/c'ed 10/27. 10/28 - BUN 40/ Creat 2.65/ GFR 19.6. Slowly trending down. Fluconazole was d/c 'ed yesterday. There has been a slight improvement of her GFR today. This continues to limit our choices of antibiotic for her. Continue to monitor. (3) Adult BMI >=70 kg/sq m Status: Chronic Problem Text: Her super morbid obesity complicates nearly every aspect of her care including: drug dosing, mobility, respiratory status, risk for superficial infections, habitus limiting physical examinations, and hygiene. (4) HTN (hypertension) Status: Chronic Response to Treatment: Stable Problem Specific Plan: Monitor Clinically Problem Text: Her blood pressure is currently well controlled. We'll continue her metoprolol with hold parameters. Her Lasix and quinapril are on hold because of the acute on chronic kidney failure. (5) DM2 (diabetes mellitus, type 2) Status: Chronic Problem Specific Plan: Monitor Clinically, Repeat Tests Problem Text: On SSI 10/25 - her blood glucose levels are looking good today. Continue current regimen , monitor. 10/24 - She is requesting to be on her home dose of Tujeo and a sliding scale. However, we have experienced her becoming significantly hypoglycemic in the past when we have used her home regimen with the controlled diet that she has here in the hospital. We will use our sliding scale while she is here. When she goes back to her home environment, presumably her diet will change and her existing regimen may be more appropriate at that time. (6) Obstructive sleep apnea Status: Chronic Discussed With: Nurse Problem Text: Continue home CPAP. (7) Headache Status: Acute Discussed With: Patient Problem Specific Plan: Monitor Clinically Problem Text: 10/29 - Slight headache after fall last night but improved/ resolved today. 10/28 - resolved. 10/27 - Improved/resolved. 10/25 - I suspect that this relates to the fact that she hit her head when she fell. I re-reviewed the CT of the head that was done in the emergency department and it shows no acute abnormalities. It also may be related to tension from her her positioning in the bed. Unfortunately there is not much we can do to improve her positioning because of her super morbid obesity. She has Flexeril and Percocet available. (8) Right shoulder pain Status: Acute Problem Specific Plan: Monitor Clinically Problem Text: 10/29 - Right shoulder improving with PT. 10/28 - Right shoulder XRAY: "Mild age-related degenerative changes are suggested by limited radiographic evaluation. Consider MRI for further more detailed evaluation if necessary." Pt states her shoulder pain has decreased and her ROM is better. Will order PT. Consider the MRI if symptoms worsen. 10/27 - Will order right shoulder xray. (9) Fall Status: Acute Problem Specific Plan: Monitor Clinically Problem Text: 10/29 - Pt sustained a fall last night. No current symptoms. (10) Confusion Status: Acute Problem Specific Plan: Monitor Clinically Problem Text: 10/30/2016: A/o x 3 today. Will monitor. 10/29 - Some intermittent confusion. Will stop the Percocet and xanax (has not been using the xanax in days). (11) Right knee pain (12) Candidemia Status: Resolved Discussed With: Patient Problem Specific Plan: Monitor Clinically Problem Text: 10/29 - Fluconazole was d/c'ed on 10/27. 10/28 - Fluconazole was d/c'ed. 10/27 - On IV Fluconazole. WBC is down today to 8.7. Will change the Fluconazole from IV to PO. 10/26 - On IV fluconazole. WBC is up today to 11.9 (was 9.9 yesterday). 10/25 - She is on IV fluconazole. I suspect this is also helping. Consider changing to oral fluconazole if the trend continues to improve. Plan/VTE VTE Prophylaxis Ordered?: Yes (Lovenox, SCDs and TEDS) VS, I&O, 24H, Fishbone Vital Signs/I&O Vital Signs Date Time Temp Pulse Resp B/P (MAP) Pulse Ox O2 Delivery O2 Flow Rate FiO2 10/29/16 22:11 20 Nasal Cannula 4.0 10/29/16 22:00 96.7 64 170/75 (106) 99 I&O- Last 24 Hours up to 6 AM 10/30/16 06:00 Intake Total 2605 ml Output Total 1125 ml Balance 1480 ml Laboratory Data 24H LABS Laboratory Tests 2 10/29/16 11:36: Bedside Glucose (Misc Panel) 132H 10/29/16 14:19: Total Creatine Kinase 87, Creatine Kinase MB 2.3, Creatine Kinase MB Relative Index 2.64, Troponin I < 0.02 10/29/16 16:42: Bedside Glucose (Misc Panel) 148H 10/29/16 18:19: Total Creatine Kinase 84, Creatine Kinase MB 2.7, Creatine Kinase MB Relative Index 3.21, Troponin I < 0.02 10/29/16 20:19: Bedside Glucose (Misc Panel) 111H 10/29/16 20:53: Bedside Glucose (Misc Panel) 133H 10/30/16 06:38: White Blood Count 8.0, Red Blood Count 2.86L, Hemoglobin 8.3L, Hematocrit 27.7L , Mean Corpuscular Volume 96.9H, Mean Corpuscular Hemoglobin 29.1, Mean Corpuscular Hemoglobin Concent 30.0L, Red Cell Distribution Width 14.5, Platelet Count 365, Neutrophils (%) (Auto) 62.7, Lymphocytes (%) (Auto) 21.3L, Monocytes (%) (Auto) 3.9, Eosinophils (%) (Auto) 6.8H, Basophils (%) (Auto) 1.1H , Neutrophils # (Auto) 5.0, Lymphocytes # (Auto) 1.7, Monocytes # (Auto) 0.3, Eosinophils # (Auto) 0.5, Basophils # (Auto) 0.1, Large Unclassified Cells % 4.1H, Large Unclassified Cells # 0.3 10/30/16 06:39: Anion Gap 5L, Glomerular Filtration Rate 25.2L, Blood Urea Nitrogen 31H, Creatinine 2.13H, Sodium Level 144, Potassium Level 5.0, Chloride Level 111H, Carbon Dioxide Level 28, Calcium Level 8.6, Aspartate Amino Transf (AST/SGOT) 12L, Alanine Aminotransferase (ALT/SGPT) 15, Alkaline Phosphatase 353H, Total Bilirubin 0.5, Total Protein 6.9, Albumin 2.0L, Albumin/Globulin Ratio 0.41L CBC/BMP Laboratory Tests 10/30/16 06:38 Red Blood Count 2.86 L, Mean Corpuscular Volume 96.9 H, Mean Corpuscular Hemoglobin 29.1, Mean Corpuscular Hemoglobin Concent 30.0 L, Red Cell Distribution Width 14.5, Neutrophils (%) (Auto) 62.7, Lymphocytes (%) (Auto) 21.3 L, Monocytes (%) (Auto) 3.9, Eosinophils (%) (Auto) 6.8 H, Basophils (%) ( Auto) 1.1 H, Neutrophils # (Auto) 5.0, Lymphocytes # (Auto) 1.7, Monocytes # ( Auto) 0.3, Eosinophils # (Auto) 0.5, Basophils # (Auto) 0.1 10/30/16 06:39 Calcium Level 8.6, Aspartate Amino Transf (AST/SGOT) 12 L, Alanine Aminotransferase (ALT/SGPT) 15, Alkaline Phosphatase 353 H, Total Bilirubin 0.5 , Total Protein 6.9, Albumin 2.0 L Microbiology Microbiology 10/23/16 Blood Culture - Final, Complete Staphylococcus Capitis 10/23/16 Blood Culture - Final, Complete Escherichia Coli 10/23/16 Urine Culture - Final, Complete Escherichia Coli Evangelina Bashir BONER MEAT Oct 30, 2016 08:21
[2016-10-30] MEDS: FERROUS SULFATE 325MG TAB PO SCH (08:31)
[2016-10-30] MEDS: NYSTATIN CREAM 15 GM EXT SCH ×2 (08:31→21:02)
[2016-10-30] MEDS: CLOPIDOGREL 75 MG TAB PO SCH (08:31)
[2016-10-30] MEDS: CYCLOBENZAPRINE 5MG TABLET PO SCH ×3 (08:32→20:55)
[2016-10-30] MEDS: GABAPENTIN 300 MG CAP PO SCH ×3 (08:32→20:53)
[2016-10-30] MEDS: RANOLAZINE 500 MG ER TAB PO SCH ×2 (08:32→20:53)
[2016-10-30] MEDS: buPROPion **XL** TABLET 150MG (WELLBUTRIN XL) PO SCH (08:32)
[2016-10-30] MEDS: traMADol 50 MG TAB PO PRN ×2 (08:33→17:39)
[2016-10-30] MEDS: ACETAMINOPHEN TAB 650MG DOSE (2X325MG) PO PRN ×2 (08:33→17:38)
[2016-10-30] MEDS: HumaLOG INSULIN (NovoLOG) PER UNIT SC SCH ×4 (08:35→21:00)
[2016-10-30] MEDS: METOPROLOL TART 25 MG TABLET PO SCH ×2 (08:37→20:55)
[2016-10-30] MEDS: DULoxetine 30 MG CAP (CYMBALTA) PO SCH (08:37)
[2016-10-30] MEDS: ENOXAPARIN 30 MG/0.3 ML SYR (J1650) SC SCH (08:38)
--- NOTE | 2016-10-30 10:23 | REP ---
RIGHT KNEE, FOUR VIEWS: HISTORY: Pain. There is no acute fracture or dislocation. There is narrowing of the joint spaces. Osteophytes are present on the femur, tibia and patella. Degenerative change as described above. Signed by Chet Hancock MD 10/30/2016 10:25 A
[2016-10-30] MEDS: TOLTERODINE (DETROL) 2 MG TAB PO SCH ×2 (10:32→20:53)
[2016-10-30] MEDS: cefTRIAXone SOD 1 GM in D5W MINI-BAG PLUS 50 ML IV SCH (12:30)
[2016-10-30 14:00] VITALS: BP 135/75
[2016-10-30] MEDS: DOCUSATE SODIUM 100 MG CAP PO SCH (20:52)
[2016-10-30] MEDS: MONTELUKAST 10 MG TAB PO SCH (20:52)
[2016-10-30] MEDS: LORATADINE 10 MG TAB PO SCH (20:52)
[2016-10-30] MEDS: MIRALAX *UNIT DOSE* 17GM PACKET PO SCH (21:01)
[2016-10-30 22:00] VITALS: BP 140/95
[2016-10-31 06:00] VITALS: BP 170/76
[2016-10-31] MEDS: DULoxetine 30 MG CAP (CYMBALTA) PO SCH (09:36)
[2016-10-31] MEDS: HumaLOG INSULIN (NovoLOG) PER UNIT SC SCH ×4 (09:36→20:56)
[2016-10-31] MEDS: RANOLAZINE 500 MG ER TAB PO SCH ×2 (09:36→21:39)
[2016-10-31] MEDS: buPROPion **XL** TABLET 150MG (WELLBUTRIN XL) PO SCH (09:36)
[2016-10-31] MEDS: GABAPENTIN 300 MG CAP PO SCH ×3 (09:36→21:34)
[2016-10-31] MEDS: CLOPIDOGREL 75 MG TAB PO SCH (09:36)
[2016-10-31] MEDS: CEFDINIR 300 MG CAP (OMNICEF) PO SCH ×2 (09:36→21:34)
[2016-10-31] MEDS: TOLTERODINE (DETROL) 2 MG TAB PO SCH ×2 (09:36→21:35)
[2016-10-31] MEDS: MIRALAX *UNIT DOSE* 17GM PACKET PO SCH ×2 (09:37→21:34)
[2016-10-31] MEDS: FERROUS SULFATE 325MG TAB PO SCH (09:37)
[2016-10-31] MEDS: METOPROLOL TART 25 MG TABLET PO SCH ×3 (09:37→21:33)
[2016-10-31] MEDS: CYCLOBENZAPRINE 5MG TABLET PO SCH ×3 (09:37→21:35)
[2016-10-31] MEDS: ENOXAPARIN 30 MG/0.3 ML SYR (J1650) SC SCH (09:37)
[2016-10-31] MEDS: NYSTATIN CREAM 15 GM EXT SCH ×2 (09:38→21:39)
[2016-10-31 14:00] VITALS: BP 164/74
--- NOTE | 2016-10-31 15:44 | IPNPDOC ---
Subjective Date Seen The patient was seen on 10/31/16. Subjective Chief Complaint/HPI The patient is a 61-year-old female admitted with a reason for visit of Sepsis Due To Uti. Events since last encounter Patient currently doing well. Has no complaints. Hoping for discharge on Wednesday. Constitutional: Denies: Chills, Fever, Malaise Skin: Denies: Rash Pulmonary: Denies: Dyspnea, Cough Cardiovascular: Denies: Chest Pain, Palpitations, Orthopnea Gastrointestinal: Denies: Nausea, Vomiting, Abdominal Pain, Diarrhea, Constipation Genitourinary: Denies: Dysuria Hematologic: Denies: Bruising Musculoskeletal: Reports: Other Symptoms (knee pain improved) Neurological: Denies: Weakness, Numbness Psych: Reports: Mood Normal Objective Physical Examination General Exam: Positive: Alert, Cooperative, No Acute Distress, Other (she is lying in bed resting when I entered the room) Eye Exam: Positive: Conjunctiva & lids normal, Negative: Sclera icteric Chest Exam: Positive: Clear to auscultation, Diminished (secondary to extrinsic impression of the chest wall) Heart Exam: Positive: Rate Normal, Negative: Murmurs Abdomen Exam: Positive: Normal bowel sounds, Soft, Negative: Tenderness Extremity Exam: Negative: Edema, Tenderness (no tenderness to palpation of left or right knee, no effusions) Psych Exam: Positive: Mood NL Assessment /Plan Problems (1) Sepsis due to urinary tract infection Status: Acute Response to Treatment: Stable Discussed With: Patient Problem Specific Plan: Monitor Clinically, Repeat Labs Problem Text: Patient was admitted 10/23/2016 for urosepsis, with blood ulcers positive for Escherichia coli and staph capitis. She completed 7 days of ceftriaxone, and was switched to Omnicef 10/31/2016. She is currently asymptomatic, and has been afebrile over 48 hours. We'll plan to complete 14 day course of antibiotics or as per ID. -Continue Omnicef by mouth twice a day (2) Acute worsening of stage 3 chronic kidney disease Status: Acute Discussed With: Patient Problem Specific Plan: Repeat Labs Problem Text: Admitted 10/23/2016 with acute on chronic renal disease. Her renal function has returned to near baseline. (3) Adult BMI >=70 kg/sq m Status: Chronic Problem Text: Her super morbid obesity complicates nearly every aspect of her care including: drug dosing, mobility, respiratory status, risk for superficial infections, habitus limiting physical examinations, and hygiene. -Plan is to discharge patient on Wednesday with home care as per case management (4) DM2 (diabetes mellitus, type 2) Status: Chronic Problem Specific Plan: Monitor Clinically, Repeat Tests Problem Text: On SSI (5) Obstructive sleep apnea Status: Chronic Discussed With: Nurse Problem Text: Continue home CPAP. (6) Right shoulder pain Status: Resolved Problem Specific Plan: Monitor Clinically Problem Text: Resolved. X-ray negative. (7) Fall Status: Acute Problem Specific Plan: Monitor Clinically Problem Text: Pt sustained a fall 10/29/2016. Initially complained of some shoulder and knee pain. X-rays were negative. His symptoms resolved. No current symptoms. (8) Right knee pain Status: Resolved (9) Candidemia Status: Resolved Discussed With: Patient Problem Specific Plan: Monitor Clinically Problem Text: Patient received 5 day course of fluconazole, however be in to have worsening renal function. This was discontinued. She has continued to be asymptomatic, and afebrile. Plan/VTE VTE Prophylaxis Ordered?: Yes (Lovenox, SCDs and TEDS) Disposition Plan to discharge home with home health on Wednesday VS, I&O, 24H, Fishbone Vital Signs/I&O Vital Signs Date Time Temp Pulse Resp B/P (MAP) Pulse Ox O2 Delivery O2 Flow Rate FiO2 10/31/16 14:00 96.7 58 20 164/74 (104) 99 NIPPV (BIPAP/CPAP) 10/31/16 09:00 4.0 I&O- Last 24 Hours up to 6 AM 10/31/16 05:59 Intake Total 2510 ml Output Total 3025 ml Balance -515 ml Laboratory Data 24H LABS Laboratory Tests 2 10/30/16 17:04: Bedside Glucose (Misc Panel) 142H 10/30/16 20:36: Bedside Glucose (Misc Panel) 136H 10/31/16 06:31: Bedside Glucose (Misc Panel) 124H 10/31/16 11:47: Bedside Glucose (Misc Panel) 117H Microbiology Microbiology 10/23/16 Blood Culture - Final, Complete Staphylococcus Capitis 10/23/16 Blood Culture - Final, Complete Escherichia Coli 10/23/16 Urine Culture - Final, Complete Escherichia Coli KAITLYN GENAO MD Oct 31, 2016 15:44
[2016-10-31] MEDS: LORATADINE 10 MG TAB PO SCH (21:35)
[2016-10-31] MEDS: DOCUSATE SODIUM 100 MG CAP PO SCH (21:35)
[2016-10-31] MEDS: MONTELUKAST 10 MG TAB PO SCH (21:36)
[2016-10-31] MEDS: traMADol 50 MG TAB PO PRN (21:48)
[2016-10-31 22:00] VITALS: BP 154/80
[2016-11-01 06:00] VITALS: BP 156/77
[2016-11-01] MEDS: HumaLOG INSULIN (NovoLOG) PER UNIT SC SCH ×4 (07:28→21:00)
[2016-11-01] MEDS: TOLTERODINE (DETROL) 2 MG TAB PO SCH ×2 (09:15→21:54)
[2016-11-01] MEDS: DULoxetine 30 MG CAP (CYMBALTA) PO SCH (09:15)
[2016-11-01] MEDS: RANOLAZINE 500 MG ER TAB PO SCH ×2 (09:15→22:04)
[2016-11-01] MEDS: CEFDINIR 300 MG CAP (OMNICEF) PO SCH ×2 (09:15→21:55)
[2016-11-01] MEDS: MIRALAX *UNIT DOSE* 17GM PACKET PO SCH ×3 (09:15→21:56)
[2016-11-01] MEDS: GABAPENTIN 300 MG CAP PO SCH ×3 (09:15→21:54)
[2016-11-01] MEDS: METOPROLOL TART 25 MG TABLET PO SCH ×2 (09:16→21:56)
[2016-11-01] MEDS: CLOPIDOGREL 75 MG TAB PO SCH (09:16)
[2016-11-01] MEDS: buPROPion **XL** TABLET 150MG (WELLBUTRIN XL) PO SCH (09:16)
[2016-11-01] MEDS: FERROUS SULFATE 325MG TAB PO SCH (09:16)
[2016-11-01] MEDS: CYCLOBENZAPRINE 5MG TABLET PO SCH ×3 (09:16→21:54)
[2016-11-01] MEDS: ENOXAPARIN 30 MG/0.3 ML SYR (J1650) SC SCH (09:17)
[2016-11-01] MEDS: NYSTATIN CREAM 15 GM EXT SCH ×2 (09:17→22:04)
--- NOTE | 2016-11-01 13:15 | IPNPDOC ---
Subjective Date Seen The patient was seen on 11/01/16. Subjective Chief Complaint/HPI The patient is a 61-year-old female admitted with a reason for visit of Sepsis Due To Uti. Events since last encounter Patient doing well. She's been having some constipation, and is finally willing to have rectal suppository. She has no other complaints or concerns. She is eager to go home on Wednesday. Constitutional: Denies: Chills, Fever, Malaise Pulmonary: Denies: Dyspnea, Cough Cardiovascular: Denies: Chest Pain, Palpitations, Orthopnea Gastrointestinal: Reports: Constipation, Denies: Nausea, Vomiting, Abdominal Pain, Diarrhea Genitourinary: Denies: Dysuria Psych: Reports: Mood Normal Other systems 10 point review systems otherwise negative Objective Physical Examination General Exam: Positive: Alert, Cooperative, No Acute Distress, Other (she is lying in bed resting when I entered the room) Eye Exam: Positive: Conjunctiva & lids normal, Negative: Sclera icteric Chest Exam: Positive: Clear to auscultation, Diminished (secondary to extrinsic impression of the chest wall) Heart Exam: Positive: Rate Normal, Negative: Murmurs Abdomen Exam: Positive: Normal bowel sounds, Soft, Negative: Tenderness Extremity Exam: Negative: Edema, Tenderness (no tenderness to palpation of left or right knee, no effusions) Psych Exam: Positive: Mood NL Assessment /Plan Problems (1) Sepsis due to urinary tract infection Status: Acute Response to Treatment: Stable Discussed With: Patient Problem Specific Plan: Monitor Clinically, Repeat Labs Problem Text: Patient was admitted 10/23/2016 for urosepsis, with blood ulcers positive for Escherichia coli and staph capitis. She completed 7 days of ceftriaxone, and was switched to Omnicef 10/31/2016. She is currently asymptomatic, and has been afebrile over 48 hours. We'll plan to complete 14 day course of antibiotics or as per ID. -Continue Omnicef by mouth twice a day (2) Acute worsening of stage 3 chronic kidney disease Status: Acute Discussed With: Patient Problem Specific Plan: Repeat Labs Problem Text: Admitted 10/23/2016 with acute on chronic renal disease. Her renal function has returned to near baseline. (3) Adult BMI >=70 kg/sq m Status: Chronic Problem Text: Her super morbid obesity complicates nearly every aspect of her care including: drug dosing, mobility, respiratory status, risk for superficial infections, habitus limiting physical examinations, and hygiene. -Plan is to discharge patient on Wednesday with home care as per case management (4) DM2 (diabetes mellitus, type 2) Status: Chronic Problem Specific Plan: Monitor Clinically, Repeat Tests Problem Text: On SSI (5) Obstructive sleep apnea Status: Chronic Discussed With: Nurse Problem Text: Continue home CPAP. (6) Right shoulder pain Status: Resolved Problem Specific Plan: Monitor Clinically Problem Text: Resolved. X-ray negative. (7) Fall Status: Acute Problem Specific Plan: Monitor Clinically Problem Text: Pt sustained a fall 10/29/2016. Initially complained of some shoulder and knee pain. X-rays were negative. His symptoms resolved. No current symptoms. (8) Right knee pain Status: Resolved (9) Candidemia Status: Resolved Discussed With: Patient Problem Specific Plan: Monitor Clinically Problem Text: Patient received 5 day course of fluconazole, however be in to have worsening renal function. This was discontinued. She has continued to be asymptomatic, and afebrile. Plan/VTE VTE Prophylaxis Ordered?: Yes (Lovenox, SCDs and TEDS) Disposition Discharge planned for 11/02/2016 VS, I&O, 24H, Fishbone Vital Signs/I&O Vital Signs Date Time Temp Pulse Resp B/P (MAP) Pulse Ox O2 Delivery O2 Flow Rate FiO2 11/01/16 09:16 62 156/77 11/01/16 09:00 Nasal Cannula 4.0 11/01/16 06:00 97.4 18 96 I&O- Last 24 Hours up to 6 AM 11/01/16 06:00 Intake Total 1130 ml Output Total 2975 ml Balance -1845 ml Laboratory Data 24H LABS Laboratory Tests 2 10/31/16 16:33: Bedside Glucose (Misc Panel) 140H 10/31/16 20:20: Bedside Glucose (Misc Panel) 134H 11/01/16 07:13: Bedside Glucose (Misc Panel) 111H 11/01/16 11:18: Bedside Glucose (Misc Panel) 164H Microbiology Microbiology 10/23/16 Blood Culture - Final, Complete Staphylococcus Capitis 10/23/16 Blood Culture - Final, Complete Escherichia Coli 10/23/16 Urine Culture - Final, Complete Escherichia Coli KAITLYN GENAO MD Nov 01, 2016 13:15
[2016-11-01 14:00] VITALS: BP 139/63
[2016-11-01] MEDS: DOCUSATE SODIUM 100 MG CAP PO SCH (21:54)
[2016-11-01] MEDS: MONTELUKAST 10 MG TAB PO SCH (21:56)
[2016-11-01] MEDS: LORATADINE 10 MG TAB PO SCH (21:56)
[2016-11-01 22:00] VITALS: BP 181/84
[2016-11-01] MEDS: traMADol 50 MG TAB PO PRN (22:00)
[2016-11-02 06:00] VITALS: BP 149/67
[2016-11-02] MEDS: traMADol 50 MG TAB PO PRN ×3 (06:27→22:55)
[2016-11-02] MEDS: HumaLOG INSULIN (NovoLOG) PER UNIT SC SCH ×4 (08:47→21:41)
[2016-11-02] MEDS: CLOPIDOGREL 75 MG TAB PO SCH (08:48)
[2016-11-02] MEDS: GABAPENTIN 300 MG CAP PO SCH ×3 (08:48→21:41)
[2016-11-02] MEDS: TOLTERODINE (DETROL) 2 MG TAB PO SCH ×2 (08:48→21:44)
[2016-11-02] MEDS: FERROUS SULFATE 325MG TAB PO SCH (08:48)
[2016-11-02] MEDS: CYCLOBENZAPRINE 5MG TABLET PO SCH ×3 (08:48→21:43)
[2016-11-02] MEDS: CEFDINIR 300 MG CAP (OMNICEF) PO SCH ×2 (08:48→21:42)
[2016-11-02] MEDS: METOPROLOL TART 25 MG TABLET PO SCH ×2 (08:48→21:57)
[2016-11-02] MEDS: buPROPion **XL** TABLET 150MG (WELLBUTRIN XL) PO SCH (08:48)
[2016-11-02] MEDS: MIRALAX *UNIT DOSE* 17GM PACKET PO SCH ×2 (08:49→21:00)
[2016-11-02] MEDS: ENOXAPARIN 30 MG/0.3 ML SYR (J1650) SC SCH (08:49)
[2016-11-02] MEDS: NYSTATIN CREAM 15 GM EXT SCH ×2 (08:49→21:44)
[2016-11-02] MEDS: RANOLAZINE 500 MG ER TAB PO SCH ×2 (08:49→21:41)
[2016-11-02] MEDS: DULoxetine 30 MG CAP (CYMBALTA) PO SCH (08:49)
--- NOTE | 2016-11-02 11:23 | IPNPDOC ---
Subjective Date Seen The patient was seen on 11/02/16. Subjective Chief Complaint/HPI The patient is a 61-year-old female admitted with a reason for visit of Sepsis Due To Uti. Events since last encounter pt this morning without new concerns. She is concerned about going home without services in place. [facility] is working to coordinate this for her. General: Denies: Fatigue Constitutional: Denies: Chills, Fever ENT: Reports: Head Aches Pulmonary: Denies: Dyspnea, Cough Cardiovascular: Denies: Chest Pain, Palpitations Gastrointestinal: Denies: Nausea, Vomiting Neurological: Reports: Weakness Psych: Reports: Mood Normal Objective Physical Examination General Exam: Positive: Alert, Cooperative, No Acute Distress, Other (she is lying in bed resting when I entered the room) Eye Exam: Positive: Conjunctiva & lids normal, Negative: Sclera icteric Chest Exam: Positive: Clear to auscultation, Diminished (secondary to extrinsic impression of the chest wall) Heart Exam: Positive: Rate Normal, Negative: Murmurs Abdomen Exam: Positive: Normal bowel sounds, Soft, Negative: Tenderness Extremity Exam: Negative: Edema, Tenderness (no tenderness to palpation of left or right knee, no effusions) Psych Exam: Positive: Mood NL Assessment /Plan Problems (1) Sepsis due to urinary tract infection Status: Acute Response to Treatment: Stable Discussed With: Patient Problem Specific Plan: Monitor Clinically, Repeat Labs Problem Text: 11/02 - cefdinir, Abx D 04/17 11/02 cehck BCX x 2 for clearance 11/01 Patient was admitted 10/23/2016 for urosepsis, with blood ulcers positive for Escherichia coli and staph capitis. She completed 7 days of ceftriaxone, and was switched to Omnicef 10/31/2016. She is currently asymptomatic, and has been afebrile over 48 hours. We'll plan to complete 14 day course of antibiotics or as per ID. (2) Acute worsening of stage 3 chronic kidney disease Status: Acute Discussed With: Patient Problem Specific Plan: Repeat Labs Problem Text: 11/02/16 down to /2.1 baseline cr 1.5-1.7 (3) Adult BMI >=70 kg/sq m Status: Chronic Problem Text: Her super morbid obesity complicates nearly every aspect of her care including: drug dosing, mobility, respiratory status, risk for superficial infections, habitus limiting physical examinations, and hygiene. -Plan is to discharge patient on Wednesday with home care as per case management (4) DM2 (diabetes mellitus, type 2) Status: Chronic Problem Specific Plan: Monitor Clinically, Repeat Tests Problem Text: On SSI (5) Obstructive sleep apnea Status: Chronic Discussed With: Nurse Problem Text: Continue home CPAP. Plan/VTE VTE Prophylaxis Ordered?: Yes (Lovenox, SCDs and TEDS) VS, I&O, 24H, Fishbone Vital Signs/I&O Vital Signs Date Time Temp Pulse Resp B/P (MAP) Pulse Ox O2 Delivery O2 Flow Rate FiO2 11/02/16 08:48 60 11/02/16 07:01 20 NIPPV (BIPAP/CPAP) 11/02/16 06:00 98.1 149/67 (94) 99 4.0 I&O- Last 24 Hours up to 6 AM 11/02/16 06:00 Intake Total 1440 ml Output Total 350 ml Balance 1090 ml Laboratory Data 24H LABS Laboratory Tests 2 11/01/16 16:46: Bedside Glucose (Misc Panel) 133H 11/01/16 21:08: Bedside Glucose (Misc Panel) 174H 11/02/16 05:26: Bedside Glucose (Misc Panel) 161H Microbiology Microbiology 10/23/16 Blood Culture - Final, Complete Staphylococcus Capitis 10/23/16 Blood Culture - Final, Complete Escherichia Coli 10/23/16 Urine Culture - Final, Complete Escherichia Coli BONY CACERES PA-C November 02, 2016 11:23 Viet Worthy M.D. November 02, 2016 15:45
[2016-11-02 14:00] VITALS: BP 164/79
[2016-11-02] MEDS: MONTELUKAST 10 MG TAB PO SCH (21:42)
[2016-11-02] MEDS: LORATADINE 10 MG TAB PO SCH (21:42)
[2016-11-02] MEDS: DOCUSATE SODIUM 100 MG CAP PO SCH (21:43)
[2016-11-02 22:00] VITALS: BP 175/81
[2016-11-03 00:39] VITALS: BP 127/60
[2016-11-03] MEDS: traMADol 50 MG TAB PO PRN (05:00)
[2016-11-03 06:00] VITALS: BP 158/71
[2016-11-03] MEDS: HumaLOG INSULIN (NovoLOG) PER UNIT SC SCH ×2 (07:59→12:35)
[2016-11-03] MEDS: ENOXAPARIN 30 MG/0.3 ML SYR (J1650) SC SCH (08:00)
[2016-11-03 08:01] VITALS: BP 133/65
[2016-11-03] MEDS: RANOLAZINE 500 MG ER TAB PO SCH (08:01)
[2016-11-03] MEDS: CYCLOBENZAPRINE 5MG TABLET PO SCH (08:01)
[2016-11-03] MEDS: TOLTERODINE (DETROL) 2 MG TAB PO SCH (08:01)
[2016-11-03] MEDS: METOPROLOL TART 25 MG TABLET PO SCH (08:01)
[2016-11-03] MEDS: GABAPENTIN 300 MG CAP PO SCH (08:01)
[2016-11-03] MEDS: NYSTATIN CREAM 15 GM EXT SCH (08:02)
[2016-11-03] MEDS: CEFDINIR 300 MG CAP (OMNICEF) PO SCH (08:02)
[2016-11-03] MEDS: CLOPIDOGREL 75 MG TAB PO SCH (08:02)
[2016-11-03] MEDS: buPROPion **XL** TABLET 150MG (WELLBUTRIN XL) PO SCH (08:02)
[2016-11-03] MEDS: MIRALAX *UNIT DOSE* 17GM PACKET PO SCH (08:02)
[2016-11-03] MEDS: DULoxetine 30 MG CAP (CYMBALTA) PO SCH (08:02)
[2016-11-03] MEDS: FERROUS SULFATE 325MG TAB PO SCH (08:02)
[2016-11-03] MEDS ORDERED: TRAM50TA2 PO (10:15)
[2016-11-03] MEDS ORDERED: CEFD300CAP PO (10:15)
--- NOTE | 2016-11-03 15:34 | DSES ---
DATE OF ADMISSION: 10/23/2016 DATE OF DISCHARGE: 11/03/2016 PRIMARY CARE PROVIDER: Yudi Vega NP ATTENDING PHYSICIAN: Dr. Viet Worthy HISTORY OF PRESENT ILLNESS: This is a 61-year-old morbidly obese female who presented to [facility] Emergency Room with feeling weak when she awoke this morning. She fell on the floor and hit the right side of her head. She called emergency medical services (EMS) for evaluation. She was recently hospitalized for left-sided groin pain and treated for Escherichia (E) coli urinary tract infection (UTI) with nitrofurantoin. Upon evaluation in the emergency room, she was found to have urosepsis and was admitted to the hospital for further management. She was started on IV antibiotics. She also had acute renal failure. She was started on ceftriaxone. She did have urine and blood cultures obtained. Urine culture growing E. coli, blood culture times one growing E. coli, blood culture times one growing Staphylococcus capitis. She does have repeat blood cultures pending which were obtained yesterday. Her IV ceftriaxone has been changed to oral Omnicef. She seems to be tolerating this well. Clinically, she is feeling better. She is getting around and moving a little bit more during this hospitalization. She does have outpatient care arranged and is eager to return home. She does have, in fact, feel safe to return home. Physical therapy and occupational therapy as well as patient and family services has been working with her to ensure a safe discharge. Her renal function has returned to baseline. DISCHARGE DIAGNOSES: Include: 1. Sepsis due to urinary tract infection. 2. Acute on chronic stage III kidney disease. 3. Adult body mass index (BMI) of greater than 70. 4. Diabetes mellitus type 2. 5. Obstructive sleep apnea. DISCHARGE MEDICATIONS: Include: - cefdinir 300 mg by mouth twice a day times four additional days - tramadol 50 mg every six hours as needed for moderate pain - Xanax 0.5 mg twice a day as needed for anxiety - bupropion 300 mg daily - Plavix 75 mg daily - cyclobenzaprine 5 mg three times a day - Benadryl 25 mg every six hours as needed for itching - docusate 200 mg before bed - Dulera 200 one puff daily - duloxetine 60 mg daily - ferrous sulfate 325 mg daily - fluticasone nasal spray two sprays intranasally daily as needed for nasal congestion - folic acid 800 mcg daily - furosemide 40 mg daily - gabapentin 600 mg by mouth three times a day - U-500 90 units subcutaneous before meals - Xopenex HFA two puffs inhaled four times a day as needed for shortness of breath - loratadine 10 mg before bed - metoprolol 25 mg twice a day - Singulair 10 mg by mouth at bedtime - niacin 500 mg twice a day with meals - Nitrostat 0.4 mg sublingually as needed for angina - Nystatin cream twice a day as needed for rash - quinapril 20 mg by mouth twice a day - Ranexa 500 mg by mouth twice a day - tolterodine tartrate 2 mg twice a day - Toujeo 150 units subcutaneous twice a day - vitamin D 50,000 units once weekly DISCHARGE PLAN: Followup with Yudi Vega NP in one week. Activity should be as tolerated. Diet should be consistent-carbohydrate, no-added salt.
== END 2016-11-03 15:14 | disposition home health service (06) | DRG 720 ==
LOC: M ED 10:24 → M ED INP 13:23 → M PCU 15:45 → M MSPAV 10-25 14:15
PROVIDERS: ADMIT Internal Medicine; ATTEND Family Medicine
DX: A41.51 Sepsis due to Escherichia coli [E. coli] (principal); N17.9 Acute kidney failure, unspecified; N18.3 Chronic kidney disease, stage 3 (moderate); E66.01 Morbid (severe) obesity due to excess calories; Z68.45 Body mass index [BMI] 70 or greater, adult; N39.0 Urinary tract infection, site not specified; E11.9 Type 2 diabetes mellitus without complications; G47.33 Obstructive sleep apnea (adult) (pediatric); Z79.899 Other long term (current) drug therapy; E78.5 Hyperlipidemia, unspecified; J45.909 Unspecified asthma, uncomplicated; Z85.41 Personal history of malignant neoplasm of cervix uteri; Z88.8 Allergy status to other drugs, medicaments and biological substances; M19.011 Primary osteoarthritis, right shoulder

== ENCOUNTER → 2016-11-12 | Outpatient (REF) | payer OTHER ==
[~2016-11-12] MED LIST changes: +BUPR300T34 PO; +CEFD300CAP PO; +DULO1CAP3 PO; +FURO40TA2 PO; +OXYC1TAB23 PO; +TRAM50TA2 PO
[2016-11-12 18:36] LABS: CALCIUM LEVEL 8.8 MG/DL (8.5-10.1); CREATININE FOR GFR 2.15 MG/DL (0.55-1.02); POTASSIUM SERUM 4.6 MEQ/L (3.5-5.1)
[2016-11-12 19:12] LABS: BASO # 0.1 K/mm3 (0.0-0.2); BASO % 1.2 % (0.0-1.0); EOS # 0.4 K/mm3 (0.0-0.50); LARGE UNSTAINED CELL # 0.2 K/mm3 (0.0-0.4); LARGE UNSTAINED CELL % 2.9 % (0.0-4.0); LYMPH # 1.7 K/mm3 (1.5-4.5); LYMPH % 27.1 % (24.0-44.0); MEAN CORPUSCULAR HEMOGLOBIN 29.8 pg (27.0-33.0); MEAN CORPUSCULAR HGB CONC 30.2 g/dl (32.0-36.5); MEAN CORPUSCULAR VOLUME 98.8 fl (80.0-96.0); MONO # 0.4 K/mm3 (0.0-0.8); MONO % 5.9 % (0.0-5.0); NEUTROPHILS # 3.5 K/mm3 (1.8-7.7); NEUTROPHILS % 56.8 % (36.0-66.0); PLATELET COUNT, AUTOMATED 388 k/mm3 (150-450); RED CELL DISTRIBUTION WIDTH 14.9 % (11.5-14.5); WHITE BLOOD COUNT 6.1 K/mm3 (4.0-10.0)
== END ==
LOC: M LABDRAW1 14:17
PROVIDERS: ATTEND Physician Assistant
DX: N39.0 Urinary tract infection, site not specified (principal); N17.9 Acute kidney failure, unspecified

== ENCOUNTER → 2016-11-27 | Outpatient (CLI) | payer OTHER ==
--- NOTE | 2016-11-27 16:38 | REP ---
Clinical: Chronic medical renal disease stage IV. Technique: Real time feldman scale ultrasound examination using curved array transducer. Findings: The kidneys are normal in reniform shape and demonstrate mild increased parenchymal echogenicity and prominent age medullary sinus fat consistent with chronic medical renal disease. No hydronephrosis, nephrolithiasis, cystic or mass lesion. Bladder is under distended. Right kidney measures 12.6 x 6.4 x 5.4 cm. Left kidney measures 11.7 x 6.3 x 6.1 cm. Impression: Evidence for chronic medical renal disease. No hydronephrosis. Signed by Allen Rojas MD 11/27/2016 04:29 P
== END ==
LOC: M RAD 15:50
PROVIDERS: ATTEND Internal Medicine Nephrology
DX: N18.4 Chronic kidney disease, stage 4 (severe) (principal); N17.9 Acute kidney failure, unspecified

== ENCOUNTER → 2017-01-22 | Outpatient (REF) | payer OTHER ==
[~2017-01-22] MED LIST changes: -ATOR1TAB18 PO; +ATOR80TA59 PO; -CYCL5TA PO; +CYCL5TAB PO; -DOCU100C PO; +DOCU100C16 PO; +FERR1TAB8 PO; -FERR325T PO; +HUMU500S2 SC; +HYDR-3713 PO; +INSURSD SC; -LEVA750T PO; +LEVA750T7 PO; +LEVAINH INH; -LIDO5DIS36 TD; +LIDO5DIS41 TD; -LYRI100C10 PO; -METO12TA PO; +METO1TAB87 PO; -NORC10TA2 PO; +NORC10TA21 PO; -NYST100024 TOP; +NYST1POW9 TOP; +ONDA4TAB6 PO; +PLAV1TAB2 PO; -PLAV75TA38 PO; +PREG100CA PO; +QUIN20TA17 PO; -QUIN20TA7 PO
[2017-01-22 18:51] LABS: ALBUMIN 3.1 GM/DL (3.2-5.2); ALBUMIN/GLOBULIN RATIO 0.76 (1.00-1.93); BILIRUBIN,TOTAL 0.3 MG/DL (0.2-1.0); CALCIUM LEVEL 8.9 MG/DL (8.5-10.1); CREATININE FOR GFR 1.96 MG/DL (0.55-1.02); GLOMERULAR FILTRATION RATE 27.8 (>51); POTASSIUM SERUM 4.2 MEQ/L (3.5-5.1); TOTAL PROTEIN 7.2 GM/DL (6.4-8.2)
[2017-01-22 19:31] LABS: MEAN CORPUSCULAR HEMOGLOBIN 29.6 pg (27.0-33.0); MEAN CORPUSCULAR HGB CONC 31.2 g/dl (32.0-36.5); MEAN CORPUSCULAR VOLUME 94.9 fl (80.0-96.0); RED CELL DISTRIBUTION WIDTH 14.2 % (11.5-14.5); WHITE BLOOD COUNT 8.8 K/mm3 (4.0-10.0)
== END ==
LOC: M SFHCPLAZ 14:38
PROVIDERS: ATTEND Nurse Practitioner Family
DX: D50.0 Iron deficiency anemia secondary to blood loss (chronic) (principal); E78.2 Mixed hyperlipidemia

== ENCOUNTER → 2017-01-22 | Outpatient (REF) | payer OTHER ==
[2017-01-22 18:43] LABS: ALBUMIN 3.2 GM/DL (3.2-5.2); ALBUMIN/GLOBULIN RATIO 0.74 (1.00-1.93); ALKALINE PHOSPHATASE 208 U/L (45-117); ALT/SGPT 30 U/L (12-78); AMYLASE 28 U/L (25-115); ANION GAP 8 MEQ/L (8-16); AST/SGOT 16 U/L (15-37); BILIRUBIN,TOTAL 0.3 MG/DL (0.2-1.0); BLOOD UREA NITROGEN 30 MG/DL (7-18); CARBON DIOXIDE LEVEL 28 MEQ/L (21-32); CHLORIDE LEVEL 105 MEQ/L (98-107); CHOLESTEROL LEVEL 235 MG/DL (< 200); CHOLESTEROL LEVEL 235 MG/DL (<200); CREATININE FOR GFR 2.02 MG/DL (0.55-1.02); FERRITIN 44 NG/ML (8-252); FOLATE > 24.0 NG/ML (>5.4); GLOMERULAR FILTRATION RATE 26.8 (>51); GLUCOSE, FASTING 158 MG/DL (70-105); POTASSIUM SERUM 4.4 MEQ/L (3.5-5.1); SODIUM LEVEL 141 MEQ/L (136-145); TOTAL PROTEIN 7.5 GM/DL (6.4-8.2); TRIGLYCERIDES LEVEL 185 MG/DL (<150)
[2017-01-22 19:03] LABS: VITAMIN B12 LEVEL 323 PG/ML (247-911)
[2017-01-22 19:42] LABS: BASO # 0.1 K/mm3 (0.0-0.2); BASO % 0.7 % (0.0-1.0); EOS # 0.4 K/mm3 (0.0-0.50); EOS % 4.1 % (0.0-3.0); LARGE UNSTAINED CELL # 0.1 K/mm3 (0.0-0.4); LARGE UNSTAINED CELL % 1.5 % (0.0-4.0); LYMPH # 2.1 K/mm3 (1.5-4.5); LYMPH % 21.7 % (24.0-44.0); MEAN CORPUSCULAR HEMOGLOBIN 30.4 pg (27.0-33.0); MEAN CORPUSCULAR HGB CONC 32.3 g/dl (32.0-36.5); MEAN CORPUSCULAR VOLUME 94.2 fl (80.0-96.0); MONO # 0.4 K/mm3 (0.0-0.8); MONO % 4.4 % (0.0-5.0); NEUTROPHILS # 6.1 K/mm3 (1.8-7.7); NEUTROPHILS % 67.6 % (36.0-66.0); PLATELET COUNT, AUTOMATED 365 k/mm3 (150-450); RED CELL DISTRIBUTION WIDTH 14.3 % (11.5-14.5)
[2017-01-26 11:33] LABS: CONTROL LINE HPYORI INT CTR LINE PRESENT
== END ==
LOC: M LABDRAWP 16:46
PROVIDERS: ATTEND Nurse Practitioner Family
DX: E66.01 Morbid (severe) obesity due to excess calories (principal)

== ENCOUNTER 2017-02-06 10:19 | Emergency (ER) | payer OTHER ==
[~2017-02-06] VITALS: Ht 165.1 cm; Wt 199.2 kg
[~2017-02-06 10:19] MED LIST changes: -HUMU500S2 SC; -HYDR-3713 PO; -INSURSD SC; -ONDA4TAB6 PO
[2017-02-06] MEDS ORDERED: INSURSD SC (10:33)
[2017-02-06] MEDS ORDERED: PROV10TA PO (10:33)
[2017-02-06] MEDS ORDERED: ONDA4TAB6 PO (10:33)
[2017-02-06] MEDS ORDERED: HYDR-3713 PO (10:33)
[2017-02-06] MEDS ORDERED: AMLO5TAB2 PO (10:33)
[2017-02-06] MEDS ORDERED: FURO20TA2 PO (10:33)
[2017-02-06 10:59] LABS: BASO # 0.1 K/mm3 (0.0-0.2); BASO % 0.4 % (0.0-1.0); EOS # 0.2 K/mm3 (0.0-0.50); EOS % 1.2 % (0.0-3.0); LARGE UNSTAINED CELL # 0.1 K/mm3 (0.0-0.4); LARGE UNSTAINED CELL % 0.8 % (0.0-4.0); LYMPH # 1.3 K/mm3 (1.5-4.5); LYMPH % 8.4 % (24.0-44.0); MEAN CORPUSCULAR HEMOGLOBIN 30.5 pg (27.0-33.0); MEAN CORPUSCULAR HGB CONC 32.9 g/dl (32.0-36.5); MEAN CORPUSCULAR VOLUME 92.7 fl (80.0-96.0); MONO # 0.7 K/mm3 (0.0-0.8); MONO % 4.6 % (0.0-5.0); NEUTROPHILS # 12.2 K/mm3 (1.8-7.7); NEUTROPHILS % 84.5 % (36.0-66.0); PLATELET COUNT, AUTOMATED 386 k/mm3 (150-450); RED CELL DISTRIBUTION WIDTH 14.4 % (11.5-14.5); WHITE BLOOD COUNT 14.4 K/mm3 (4.0-10.0)
[2017-02-06] MEDS ORDERED: ONDANSETRON 4 MG ORAL DISINTEGRATING TAB (S0181) PO ONE (11:00)
[2017-02-06] MEDS ORDERED: ONDANSETRON 4MG/2ML VIAL (J2405) IV ONE ×2 (11:00→17:15)
[2017-02-06] MEDS ORDERED: MORPHINE 4 MG/ML 1ML SYRINGE SC ONE (11:00)
[2017-02-06] MEDS ORDERED: ONDANSETRON 4MG/2ML VIAL (J2405) As Ordered ONE (11:00)
[2017-02-06] MEDS: MORPHINE 4 MG/ML 1ML SYRINGE IV ONE ×2 (11:04→11:05)
[2017-02-06 11:16] LABS: ALBUMIN 3.2 GM/DL (3.2-5.2); ALBUMIN/GLOBULIN RATIO 0.68 (1.00-1.93); ALKALINE PHOSPHATASE 197 U/L (45-117); ALT/SGPT 25 U/L (12-78); ANION GAP 11 MEQ/L (8-16); AST/SGOT 21 U/L (15-37); BILIRUBIN,DIRECT 0.2 MG/DL (0.0-0.2); BILIRUBIN,TOTAL 0.7 MG/DL (0.2-1.0); BLOOD UREA NITROGEN 24 MG/DL (7-18); CALCIUM LEVEL 9.3 MG/DL (8.5-10.1); CARBON DIOXIDE LEVEL 26 MEQ/L (21-32); CHLORIDE LEVEL 104 MEQ/L (98-107); GLOMERULAR FILTRATION RATE 32.7 (>51); GLUCOSE, FASTING 242 MG/DL (70-105); POTASSIUM SERUM 4.6 MEQ/L (3.5-5.1); SODIUM LEVEL 141 MEQ/L (136-145); TOTAL PROTEIN 7.9 GM/DL (6.4-8.2)
[2017-02-06] MEDS ORDERED: GASTROGRAFIN SOLUTION 30ML (Q9963) As Ordered ONE (13:24)
[2017-02-06] MEDS ORDERED: GASTROGRAFIN SOLUTION 30ML (Q9963) PO ONE ×2 (13:30→14:00)
[2017-02-06] MEDS ORDERED: MORPHINE 2 MG/ML 1ML SYRINGE IV ONE (13:30)
[2017-02-06] MEDS ORDERED: MORPHINE 4 MG/ML 1ML SYRINGE IV ONE (18:45)
[2017-02-06 19:11] VITALS: BP 227/91
--- NOTE | 2017-02-07 08:02 | REP ---
CT ABDOMEN PELVIS WITH ORAL CONTRAST ONLY: 02/06/2017. Comparison: 10/01/2016. Clinical history: Upper abdominal pain. Pancreatitis. Chronic kidney disease. COPD. Coronary artery disease. Prior cervical carcinoma. Technique: Noncontrast imaging through the abdomen and pelvis with coronal and sagittal reconstructions provided. The patient could not tolerate the oral contrast. Findings:CT abdomen: The lung bases were clear without infiltrate or effusion. Heart is mildly enlarged. There is no pericardial thickening or effusion but prominent peroneal fat pads noted. There is hepatomegaly with a vertical diameter up to 22 cm in the liver, it appears fairly homogeneous. I do not see discrete hepatic mass nor intrahepatic biliary dilatation. There is one calcification in the liver. I would note that there is a significant ring detector artifact related to the patient's extreme body habitus. Also the stomach is very distended. There are scattered hyperdense foci in the retained fluid suggesting pill fragments or other ingested radiodense material. The duodenum is not abnormally distended. Pancreas is visible without significant inflammatory change adjacent. There certainly could be subtle peripancreatic infiltration that would be masked by the technical artifact due to her body habitus. Proximal small bowel loops are fluid filled and dilated. There is a ventral hernia with an incarcerated bowel loop. There appears to be a single loop, likely a Austin type hernia. All the loops above this are dilated and fluid-filled with some air-fluid levels. There is edema in the abdominal wall surrounding the hernia sac. This is poorly evaluated because of abdominal wall up against the scanned shroud which cannot be avoided due to her body habitus. Distal loops are not as dilated. Colon is largely collapsed and has only small amounts of fluid and stool. There is no definite colitis or diverticulitis. Lung window review of all CT slices shows no perforation or abscess. The bone windows show the lumbar and lower thoracic spine and posterior elements without acute fractures or destructive lesions visualized ribs intact. CT pelvis: Bony hips, pelvis, sacrum and lumbosacral junction with SI joints show minor degenerative changes. Bladder without wall thickening or mass. There is a uterus. No gross pelvic mass. No pelvic free fluid, ascites or adenopathy. No inguinal hernia. Impression: 1. Distended stomach and small bowel loops with air-fluid levels into an abdominal wall ventral hernia with a small bowel loop or Austin type hernia at this site. Findings suggest small bowel obstruction. There is no evidence of colonic obstruction with the colon collapsed. No colitis or diverticulitis. 2. Hepatomegaly up to 22 cm in vertical diameter. No splenomegaly. No focal hepatic or splenic lesion. No ascites or adenopathy. 3. Pancreas without gross peripancreatic inflammatory change that would clearly define pancreatitis but this is limited scan because of the technical artifact due to extreme body habitus limiting some of the fine detail of the mesentery. 4. Adrenal glands, kidneys and aorta intact. Signed by Ariel Oneil MD 02/07/2017 08:07 A
--- NOTE | 2017-02-08 16:32 | REP ---
GALLBLADDER ULTRASOUND: 02/06/2017: Clinical history. Right upper quadrant pain. Comparison: Limited abdominal ultrasound 07/24/2016, CT abdomen pelvis 12/28/2008. Findings: The exam is severely limited due to extreme body habitus considerations. Sonographic evaluation of the liver shows diffuse hyperechogenicity suggesting fatty infiltration, however very poor penetration and thick body wall layer of fat severely limits penetration evaluation. The gallbladder cannot be seen. It is present on the CT scan in 2008. She states it is not been removed. But unlike the ultrasound in July, is not visible on these images. The common duct is 6 mm without filling defect. Pancreas is not seen. The right kidney is poorly visualized but appears to measure 11.9 x 5.7 x 6 cm. No gross hydronephrosis. Impression: 1. This examination is severely limited due to extreme body habitus. Diffuse fatty infiltration liver. Parenchymal detail extremely poor. No gross ascites. The gallbladder cannot be visualized on these images. 2. Common duct 6 mm without filling defect. 3. Pancreas not visualized. 4. Right kidney without gross hydronephrosis. Signed by Ariel Oneil MD 02/08/2017 05:13 P
== END 2017-02-06 19:28 | disposition short-term general hospital (02) ==
LOC: M ED 10:19 → EDBD 10:19 → M ED 19:28
DX: K56.60 Unspecified intestinal obstruction (principal); E66.01 Morbid (severe) obesity due to excess calories; I25.10 Atherosclerotic heart disease of native coronary artery without angina pectoris; E11.9 Type 2 diabetes mellitus without complications; I10 Essential (primary) hypertension; E78.5 Hyperlipidemia, unspecified; G47.33 Obstructive sleep apnea (adult) (pediatric); D50.9 Iron deficiency anemia, unspecified; Z88.6 Allergy status to analgesic agent; Z88.8 Allergy status to other drugs, medicaments and biological substances; Z91.018 Allergy to other foods; Z91.048 Other nonmedicinal substance allergy status; Z79.4 Long term (current) use of insulin; Z79.899 Other long term (current) drug therapy
CPT/HCPCS: 51701; 74176; 76705; 80048; 80076; 81001; 82550; 82553; 83605; 83690; 85025; 87086; 93041; 96374; 96375; 96376; 99285; J2405; Q9963

== ENCOUNTER 2017-02-15 10:10 | Emergency (ER) | payer OTHER ==
[~2017-02-15] VITALS: Ht 165.1 cm; Wt 193.1 kg
[~2017-02-15 10:10] MED LIST changes: +HYDR-3713 PO; +INSURSD SC; +ONDA4TAB6 PO
[2017-02-15] MEDS ORDERED: HUMU500S2 SC (10:31)
[2017-02-15] MEDS ORDERED: NS 1,000 ML IV SCH (10:47)
[2017-02-15] MEDS ORDERED: ONDANSETRON 4MG/2ML VIAL (J2405) IV ONE (11:00)
[2017-02-15] MEDS ORDERED: MORPHINE 4 MG/ML 1ML SYRINGE IV PRN (11:00)
[2017-02-15] MEDS ORDERED: GASTROGRAFIN SOLUTION 30ML PO ONE (11:10)
[2017-02-15 11:40] LABS: BASO % 0.4 % (0.0-1.0); EOS # 0.2 K/mm3 (0.0-0.50); EOS % 1.7 % (0.0-3.0); LARGE UNSTAINED CELL # 0.2 K/mm3 (0.0-0.4); LARGE UNSTAINED CELL % 1.7 % (0.0-4.0); LYMPH # 1.3 K/mm3 (1.5-4.5); LYMPH % 13.9 % (24.0-44.0); MEAN CORPUSCULAR HEMOGLOBIN 30.1 pg (27.0-33.0); MEAN CORPUSCULAR HGB CONC 31.6 g/dl (32.0-36.5); MEAN CORPUSCULAR VOLUME 95.3 fl (80.0-96.0); MONO # 0.4 K/mm3 (0.0-0.8); NEUTROPHILS % 78.3 % (36.0-66.0); PLATELET COUNT, AUTOMATED 339 k/mm3 (150-450); RED CELL DISTRIBUTION WIDTH 14.1 % (11.5-14.5)
[2017-02-15] MEDS ORDERED: GASTROGRAFIN SOLUTION 30ML (Q9963) PO ONE (11:40)
[2017-02-15 12:08] LABS: ALBUMIN 3.5 GM/DL (3.2-5.2); ALBUMIN/GLOBULIN RATIO 0.81 (1.00-1.93); BILIRUBIN,DIRECT 0.2 MG/DL (0.0-0.2); BILIRUBIN,TOTAL 0.5 MG/DL (0.2-1.0); CALCIUM LEVEL 8.5 MG/DL (8.5-10.1); CREATININE FOR GFR 2.01 MG/DL (0.55-1.02); POTASSIUM SERUM 4.2 MEQ/L (3.5-5.1); TOTAL PROTEIN 7.8 GM/DL (6.4-8.2)
--- NOTE | 2017-02-15 13:50 | REP ---
CT of the abdomen pelvis without IV or bowel contrast: Comparison is 02/06/2017. The small bowel is dilated and contains multiple air-fluid levels compatible with obstruction versus ileus. On the comparison study and midline anterior abdominal wall hernia was identified containing a bowel loop. There is no bowel loop within the hernia on the study today, however there is omental fat. I suspect there may be more than one small peritoneal defect in this location. There is diffuse edema of the subcutaneous fat along the left lateral abdominal wall. It is extending over the left anterior abdominal wall and inferior abdominal wall. There is edema within the omental fat contained within the hernia or hernias. There is no pneumoperitoneum. There is no ascites. There is a Haja filter in the vena cava. The visualized lung feliciano are unremarkable. The unenhanced hepatic parenchyma is mildly heterogeneous but otherwise unremarkable. The gallbladder, pancreas and spleen are unremarkable and unchanged. The adrenals, kidneys and abdominal aorta are unremarkable and unchanged. Pelvis: There is no ascites. The uterus and adnexa are unremarkable. There is no adenopathy. Impression: Dilated small bowel multiple air-fluid levels compatible with small bowel obstruction versus ileus. Anterior abdominal wall complex hernia. There may be more than one peritoneal defect. There is no bowel within the hernia today, however there is omental fat within the hernia sac . The omental fat within the hernia demonstrates inflammation. There is inflammation of the subcutaneous abdominal fat over the anterior abdominal wall on the left extending into the left lateral abdominal wall. There is no ascites or pneumoperitoneum. Otherwise, there is no change from the prior study. Signed by Sher Sung MD 02/15/2017 01:42 P
[2017-02-15 15:59] VITALS: BP 142/58
== END 2017-02-15 16:04 | disposition short-term general hospital (02) ==
LOC: M ED 10:10
DX: K56.60 Unspecified intestinal obstruction (principal); Z68.45 Body mass index [BMI] 70 or greater, adult; E66.01 Morbid (severe) obesity due to excess calories; I25.10 Atherosclerotic heart disease of native coronary artery without angina pectoris; E11.9 Type 2 diabetes mellitus without complications; I10 Essential (primary) hypertension; G47.30 Sleep apnea, unspecified; N18.4 Chronic kidney disease, stage 4 (severe); Z79.4 Long term (current) use of insulin; Z79.899 Other long term (current) drug therapy; Z88.6 Allergy status to analgesic agent; Z88.8 Allergy status to other drugs, medicaments and biological substances; Z91.89 Other specified personal risk factors, not elsewhere classified
CPT/HCPCS: 74176; 80048; 80076; 83605; 83690; 85025; 93041; 96374; 96375; 99285; J2405; Q9963

== ENCOUNTER 2017-03-05 19:42 | Emergency (ER) | payer OTHER ==
[~2017-03-05] VITALS: Ht 160 cm; Wt 197.0 kg
[~2017-03-05 19:42] MED LIST changes: +HUMU500S2 SC
[2017-03-05] MEDS ORDERED: GASTROGRAFIN SOLUTION 30ML (Q9963) As Ordered ONE (20:40)
[2017-03-05] MEDS ORDERED: ONDANSETRON 4MG/2ML VIAL (J2405) IV ONE ×2 (20:45→22:00)
[2017-03-05] MEDS ORDERED: MORPHINE 4 MG/ML 1ML SYRINGE IV ONE ×3 (20:45→23:45)
[2017-03-05] MEDS ORDERED: GASTROGRAFIN SOLUTION 30ML PO ONE (20:55)
[2017-03-05] MEDS ORDERED: GASTROGRAFIN SOLUTION 30ML (Q9963) PO ONE (21:25)
[2017-03-05 21:45] LABS: BASO # 0.1 K/mm3 (0.0-0.2); BASO % 0.6 % (0.0-1.0); EOS # 0.2 K/mm3 (0.0-0.50); EOS % 2.2 % (0.0-3.0); LARGE UNSTAINED CELL # 0.2 K/mm3 (0.0-0.4); LARGE UNSTAINED CELL % 1.6 % (0.0-4.0); LYMPH # 1.3 K/mm3 (1.5-4.5); LYMPH % 12.1 % (24.0-44.0); MEAN CORPUSCULAR HEMOGLOBIN 29.7 pg (27.0-33.0); MEAN CORPUSCULAR HGB CONC 31.3 g/dl (32.0-36.5); MEAN CORPUSCULAR VOLUME 94.7 fl (80.0-96.0); MONO # 0.5 K/mm3 (0.0-0.8); MONO % 4.8 % (0.0-5.0); NEUTROPHILS # 7.4 K/mm3 (1.8-7.7); NEUTROPHILS % 78.7 % (36.0-66.0); PLATELET COUNT, AUTOMATED 332 k/mm3 (150-450); RED CELL DISTRIBUTION WIDTH 14.1 % (11.5-14.5); WHITE BLOOD COUNT 9.4 K/mm3 (4.0-10.0)
[2017-03-05 21:46] LABS: ALKALINE PHOSPHATASE 361 U/L (45-117); ALT/SGPT 80 U/L (12-78); ANION GAP 11 MEQ/L (8-16); AST/SGOT 114 U/L (15-37); BILIRUBIN,DIRECT 0.9 MG/DL (0.0-0.2); BILIRUBIN,TOTAL 1.2 MG/DL (0.2-1.0); BLOOD UREA NITROGEN 23 MG/DL (7-18); CALCIUM LEVEL 8.3 MG/DL (8.5-10.1); CARBON DIOXIDE LEVEL 27 MEQ/L (21-32); CHLORIDE LEVEL 106 MEQ/L (98-107); GLOMERULAR FILTRATION RATE 30.7 (>51); GLUCOSE, FASTING 184 MG/DL (70-105); POTASSIUM SERUM 4.2 MEQ/L (3.5-5.1); SODIUM LEVEL 144 MEQ/L (136-145); TOTAL PROTEIN 7.3 GM/DL (6.4-8.2)
--- NOTE | 2017-03-05 23:20 | REPUSA ---
CT of the abdomen and pelvis without contrast Clinical statement: elevated lipase. Technique: Multiple axial CT images were obtained from the base of the lungs to the floor of the pelv is utilizing 5 mm axial slices without administration of contrast. Coronal and sagittal reconstructio ns were also obtained. Comparison: 10/01/2016. Findings: Chest: The visualized lung bases are clear. Abdomen: The kidneys are normal in size bilaterally. There is no evidence of hydronephrosis or nephro lithiasis. The liver, spleen, pancreas, and adrenal glands are unremarkable. The aorta demonstrates n ormal caliber and contour. There is no abdominal lymphadenopathy or ascites. IVC filter is in place. Pelvis: The bowel is unremarkable, with no obstructive or inflammatory changes. The urinary bladder i s within normal limits. There is no pelvic lymphadenopathy or ascites. The other pelvic structures ap pear unremarkable. There is a large midline anterior abdominal wall hernia demonstrated at the level of the lower pelvis. A single loop of bowel is seen herniating at the site, but is not inflamed or in carcerated. Bones: There are no suspicious osseous abnormalities seen. There is mild degenerative disc disease at L4/L5 and L5/S1. Impression: 1. Stable appearance of the midline anterior abdominal wall hernia in the level the lower pelvis. Her niating small bowel is noted, without evidence of obstruction or incarceration. 2. The remainder of the bowel is unremarkable, with no obstructive or inflammatory changes. 3. No evidence of hydronephrosis or nephrolithiasis.
[2017-03-05] MEDS ORDERED: NS 1,000 ML IV SCH (23:49)
[2017-03-06 02:04] VITALS: BP 166/58
--- NOTE | 2017-03-06 19:27 | ECGEPIP ---
Stationary ECG Study [facility] - ED Test Date: 2017-03-05 Pat Name: NUNO PATEL Department: Room: - Gender: F [employer]: rosa : [id number] Requested By: ARTEMIO Ribera Order Number: [id number] Reading MD: Randy Garcia Measurements Intervals [place] Rate: 70 P: 29 AR: 143 QRS: -48 QRSD: 141 T: 10 QT: 420 QTc: 455 Interpretive Statements SINUS RHYTHM WITH SINUS ARRHYTHMIA RIGHT BUNDLE BRANCH BLOCK LEFT ANTERIOR FASCICULAR BLOCK LAD NONSPECIFIC ST T WAVE CHANGES CW 10/29/16 RATE INCREASED Electronically Signed On 03-06-2017 19:27:25 EDT by Randy Garcia
== END 2017-03-06 02:10 | disposition short-term general hospital (02) ==
LOC: EDBD 19:42 → M ED 19:42
DX: K85.90 Acute pancreatitis without necrosis or infection, unspecified (principal); E80.6 Other disorders of bilirubin metabolism; E11.9 Type 2 diabetes mellitus without complications; I10 Essential (primary) hypertension; Z86.73 Personal history of transient ischemic attack (TIA), and cerebral infarction without residual deficits; D64.9 Anemia, unspecified; J45.909 Unspecified asthma, uncomplicated; E78.5 Hyperlipidemia, unspecified; E66.9 Obesity, unspecified; Z85.41 Personal history of malignant neoplasm of cervix uteri; Z99.81 Dependence on supplemental oxygen; Z79.899 Other long term (current) drug therapy; Z79.4 Long term (current) use of insulin; Z88.6 Allergy status to analgesic agent; Z88.8 Allergy status to other drugs, medicaments and biological substances; Z91.89 Other specified personal risk factors, not elsewhere classified; Z91.018 Allergy to other foods
CPT/HCPCS: 74176; 80048; 80076; 82550; 82553; 83690; 85025; 93000; 93041; 96374; 96375; 96376; 99285; J2405; Q9963

== ENCOUNTER → 2017-03-23 | Outpatient (REF) | payer OTHER ==
[2017-03-23 13:57] LABS: MEAN CORPUSCULAR HEMOGLOBIN 28.3 pg (27.0-33.0); MEAN CORPUSCULAR HGB CONC 29.6 g/dl (32.0-36.5); MEAN CORPUSCULAR VOLUME 95.6 fl (80.0-96.0); RED CELL DISTRIBUTION WIDTH 14.4 % (11.5-14.5); WHITE BLOOD COUNT 6.5 K/mm3 (4.0-10.0)
[2017-03-23 13:58] LABS: ALBUMIN 3.1 GM/DL (3.2-5.2); ALBUMIN/GLOBULIN RATIO 0.76 (1.00-1.93); BILIRUBIN,DIRECT 0.3 MG/DL (0.0-0.2); BILIRUBIN,TOTAL 0.6 MG/DL (0.2-1.0); CALCIUM LEVEL 8.5 MG/DL (8.5-10.1); CREATININE FOR GFR 1.88 MG/DL (0.55-1.02); GLOMERULAR FILTRATION RATE 29.2 (>51); POTASSIUM SERUM 4.5 MEQ/L (3.5-5.1); TOTAL PROTEIN 7.2 GM/DL (6.4-8.2)
== END ==
LOC: M SFHCPLAZ 10:03
PROVIDERS: ATTEND Nurse Practitioner Family
DX: D50.0 Iron deficiency anemia secondary to blood loss (chronic) (principal); R74.8 Abnormal levels of other serum enzymes; I10 Essential (primary) hypertension

== ENCOUNTER → 2017-11-03 | Outpatient (REF) | payer OTHER ==
[2017-11-03 18:12] LABS: HEMATOCRIT 32.7 % (36.0-47.0); HEMOGLOBIN 9.9 g/dl (12.0-15.5); MEAN CORPUSCULAR HEMOGLOBIN 28.7 pg (27.0-33.0); MEAN CORPUSCULAR HGB CONC 30.3 g/dl (32.0-36.5); MEAN CORPUSCULAR VOLUME 94.8 fl (80.0-96.0); PLATELET COUNT, AUTOMATED 390 10^3/uL (150-450); RED BLOOD COUNT 3.45 10^6/uL (4.00-5.40); RED CELL DISTRIBUTION WIDTH 14.9 % (11.5-14.5); WHITE BLOOD COUNT 9.5 10^3/uL (4.0-10.0)
[2017-11-03 18:30] LABS: ANION GAP 7 MEQ/L (8-16); BLOOD UREA NITROGEN 30 MG/DL (7-18); CALCIUM LEVEL 8.7 MG/DL (8.8-10.2); CARBON DIOXIDE LEVEL 30 MEQ/L (21-32); CHLORIDE LEVEL 107 MEQ/L (98-107); CREATININE FOR GFR 1.92 MG/DL (0.55-1.30); FERRITIN 36 NG/ML (8-252); GLOMERULAR FILTRATION RATE 28.4 (>45); GLUCOSE, FASTING 78 MG/DL (70-100); POTASSIUM SERUM 4.5 MEQ/L (3.5-5.1); SODIUM LEVEL 144 MEQ/L (136-145)
== END ==
LOC: M SFHCPLAZ 14:46
DX: D50.0 Iron deficiency anemia secondary to blood loss (chronic) (principal); I10 Essential (primary) hypertension; Z98.84 Bariatric surgery status

== ENCOUNTER 2018-02-20 02:49 | Emergency (ER) | payer OTHER ==
[2018-02-20 04:00] LABS: BASO % 0.3 % (0.0-1.0); EOS % 0.1 % (0.0-3.0); HEMATOCRIT 38.4 % (36.0-47.0); HEMOGLOBIN 11.8 g/dl (12.0-15.5); IMMATURE GRANULOCYTE % 0.9 % (0-3.0); LYMPH # 0.7 10^3/uL (1.5-4.5); LYMPH % 7.2 % (24.0-44.0); MEAN CORPUSCULAR HEMOGLOBIN 28.7 pg (27.0-33.0); MEAN CORPUSCULAR HGB CONC 30.7 g/dl (32.0-36.5); MEAN CORPUSCULAR VOLUME 93.4 fl (80.0-96.0); MONO # 0.3 10^3/uL (0.0-0.8); MONO % 2.6 % (0.0-5.0); NEUTROPHILS # 8.9 10^3/uL (1.8-7.7); NEUTROPHILS % 88.9 % (36.0-66.0); PLATELET COUNT, AUTOMATED 379 10^3/uL (150-450); RED BLOOD COUNT 4.11 10^6/uL (4.00-5.40); RED CELL DISTRIBUTION WIDTH 14.6 % (11.5-14.5)
[2018-02-20] MEDS: NS 1,000 ML IV (04:00)
[2018-02-20] MEDS: ONDANSETRON 4MG/2ML VIAL (J2405) IV (04:00)
[2018-02-20] MEDS: MORPHINE 4 MG/ML 1ML VIAL/SYRINGE (J2270) IV (04:06)
[2018-02-20 04:12] LABS: ALBUMIN 3.2 GM/DL (3.2-5.2); ALKALINE PHOSPHATASE 176 U/L (45-117); ALT/SGPT 29 U/L (12-78); ANION GAP 9 MEQ/L (8-16); AST/SGOT 23 U/L (7-37); BILIRUBIN,DIRECT 0.2 MG/DL (0.0-0.2); BILIRUBIN,TOTAL 0.6 MG/DL (0.2-1.0); BLOOD UREA NITROGEN 26 MG/DL (7-18); CALCIUM LEVEL 9.1 MG/DL (8.8-10.2); CARBON DIOXIDE LEVEL 30 MEQ/L (21-32); CHLORIDE LEVEL 99 MEQ/L (98-107); CREATININE FOR GFR 1.87 MG/DL (0.55-1.30); GLOMERULAR FILTRATION RATE 29.2 (>45); GLUCOSE, FASTING 333 MG/DL (70-100); LIPASE 115 U/L (73-393); SODIUM LEVEL 138 MEQ/L (136-145); TOTAL PROTEIN 8.5 GM/DL (6.4-8.2)
[2018-02-20 04:21] LABS: POTASSIUM SERUM 5.6 MEQ/L (3.5-5.1)
[2018-02-20 04:27] LABS: LACTIC ACID SEPSIS PROTOCOL 1.5 MMOL/L (0.4-2.0)
[2018-02-20] MEDS: METOCLOPRAMIDE INJ 10MG/2ML VIAL (J2765) IV (07:38)
== END 2018-02-20 08:25 | disposition short-term general hospital (02) ==
LOC: M ED 02:49
DX: K56.609 Unspecified intestinal obstruction, unspecified as to partial versus complete obstruction (principal); Z90.49 Acquired absence of other specified parts of digestive tract; Z98.84 Bariatric surgery status; Z79.84 Long term (current) use of oral hypoglycemic drugs; Z79.899 Other long term (current) drug therapy; Z88.6 Allergy status to analgesic agent; Z88.8 Allergy status to other drugs, medicaments and biological substances; Z91.89 Other specified personal risk factors, not elsewhere classified; Z91.018 Allergy to other foods
CPT/HCPCS: J2270

== ENCOUNTER → 2018-05-11 | Outpatient (REF) | payer OTHER ==
[2018-05-11 13:52] LABS: HEMATOCRIT 33.4 % (36.0-47.0); HEMOGLOBIN 10.2 g/dl (12.0-15.5); MEAN CORPUSCULAR HEMOGLOBIN 28.6 pg (27.0-33.0); MEAN CORPUSCULAR HGB CONC 30.5 g/dl (32.0-36.5); MEAN CORPUSCULAR VOLUME 93.6 fl (80.0-96.0); PLATELET COUNT, AUTOMATED 352 10^3/uL (150-450); RED BLOOD COUNT 3.57 10^6/uL (4.00-5.40); RED CELL DISTRIBUTION WIDTH 14.5 % (11.5-14.5); WHITE BLOOD COUNT 9.6 10^3/uL (4.0-10.0)
[2018-05-11 14:14] LABS: ALBUMIN/GLOBULIN RATIO 0.73 (1.00-1.93); ALKALINE PHOSPHATASE 169 U/L (45-117); ALT/SGPT 27 U/L (12-78); ANION GAP 7 MEQ/L (8-16); AST/SGOT 18 U/L (7-37); BILIRUBIN,TOTAL 0.3 MG/DL (0.2-1.0); BLOOD UREA NITROGEN 24 MG/DL (7-18); CARBON DIOXIDE LEVEL 30 MEQ/L (21-32); CHLORIDE LEVEL 104 MEQ/L (98-107); CREATININE FOR GFR 1.75 MG/DL (0.55-1.30); FREE T4 1.01 NG/DL (0.76-1.46); GLOMERULAR FILTRATION RATE 31.6 (>45); GLUCOSE, FASTING 178 MG/DL (70-100); POTASSIUM SERUM 4.4 MEQ/L (3.5-5.1); SODIUM LEVEL 141 MEQ/L (136-145); TOTAL PROTEIN 7.1 GM/DL (6.4-8.2)
== END ==
LOC: M SFHCPLAZ 11:07
DX: F32.9 Major depressive disorder, single episode, unspecified (principal); R22.0 Localized swelling, mass and lump, head
CPT/HCPCS: 84443

== ENCOUNTER → 2018-06-02 | Outpatient (REF) | payer OTHER | LOC: M LAB REF 14:00 | DX: L72.12 Trichodermal cyst (principal) | CPT/HCPCS: 88304 ==

== ENCOUNTER → 2018-07-14 | Outpatient (REF) | payer OTHER ==
[~2018-07-14] MED LIST changes: -AMLO5TAB2 PO; +AMLO5TAB6 PO; -DRIS50002 PO; +DRIS50003 PO; -GABA-282 PO; +GABA-843 PO; +IPRA0.00 NEB; -IPRASOL4 NEB; -LASI20TA PO; +LASI20TA3 PO; +LORA-243 PO; -LORA10TA2 PO; +QUIN1TAB3 PO; -QUIN20TA17 PO
== END ==
LOC: M LAB REF 14:11
PROVIDERS: ATTEND Surgery
DX: D17.22 Benign lipomatous neoplasm of skin and subcutaneous tissue of left arm (principal)

== ENCOUNTER → 2018-07-21 | Outpatient (REF) | payer OTHER | LOC: M LAB REF 15:13 | PROVIDERS: ATTEND Surgery | DX: D18.01 Hemangioma of skin and subcutaneous tissue (principal) ==

== ENCOUNTER → 2018-09-21 | Outpatient (REF) | payer OTHER ==
[2018-09-21 12:16] LABS: HEMATOCRIT 33.2 % (36.0-47.0); HEMOGLOBIN 10.1 g/dl (12.0-15.5); MEAN CORPUSCULAR HGB CONC 30.4 g/dl (32.0-36.5); MEAN CORPUSCULAR VOLUME 95.4 fl (80.0-96.0); PLATELET COUNT, AUTOMATED 343 10^3/uL (150-450); RED BLOOD COUNT 3.48 10^6/uL (4.00-5.40); WHITE BLOOD COUNT 8.1 10^3/uL (4.0-10.0)
[2018-09-21 12:40] LABS: ALBUMIN 2.8 GM/DL (3.2-5.2); BILIRUBIN,TOTAL 0.3 MG/DL (0.2-1.0); CALCIUM LEVEL 8.2 MG/DL (8.8-10.2); CHOLESTEROL RISK RATIO 5.351 (<5); CREATININE FOR GFR 1.97 MG/DL (0.55-1.30); GLOMERULAR FILTRATION RATE 27.4 (>45); POTASSIUM SERUM 4.4 MEQ/L (3.5-5.1); TOTAL PROTEIN 6.7 GM/DL (6.4-8.2)
[2018-09-21 19:14] LABS: TOTAL 25(OH) VITAMIN D 33.3 NG/ML (30.0-100.0)
== END ==
LOC: M SFHCPLAZ 09:50
PROVIDERS: ATTEND Nurse Practitioner Family
DX: D50.0 Iron deficiency anemia secondary to blood loss (chronic) (principal); I10 Essential (primary) hypertension; E78.2 Mixed hyperlipidemia; E55.9 Vitamin D deficiency, unspecified

== ENCOUNTER → 2018-09-26 | Outpatient (CLI) | payer OTHER ==
--- NOTE | 2018-09-26 16:28 | REP ---
Clinical: Left lower quadrant pain. Technique: Axial noncontrast images from the lung bases to the pubic symphysis with coronal and sagittal re-formations. Comparison: 02/20/2018. Findings: Examination is limited by technical factors and ring artifact due to body habitus. Lung bases are clear. Visualized heart and pericardium normal. Liver, spleen, pancreas, bilateral adrenal glands and kidneys are relatively normal / stable. The patient is noted to be status post cholecystectomy and gastric bypass surgery. The enteric system is without obstruction or acute inflammatory process. Pelvis demonstrates normal bladder and age-appropriate uterus/adnexa. No ascites. No free air. No obvious adenopathy. Abdominal aorta without aneurysm. Osseous structures demonstrate age-related degenerative changes. Infiltration and edema to the subcutaneous fat noted along the anterior abdominal wall without obvious drainable collection/abscess. Previously noted midline ventral hernia appears to be improved. Impression: 1. Evaluation is limited due to technical factors. 2. Subcutaneous infiltration and edema involving the anterior abdominal wall without drainable collection or abscess. 3. No further acute abdominopelvic pathology appreciated. Electronically Signed by Allen Rojas MD 09/26/2018 04:19 P
== END ==
LOC: M RAD 15:53
PROVIDERS: ATTEND Nurse Practitioner Family
DX: R10.32 Left lower quadrant pain (principal); R60.0 Localized edema

== ENCOUNTER → 2018-10-05 | Outpatient (CLI) | payer OTHER ==
[~2018-10-05] MED LIST changes: -/METO25TAB PO; -/NITR4TASL SL; -/QUIN20TA PO; +ACCU1TAB2 PO; +BACI1OIN4 EXT; +HYDR-3715 PO; +METO1TAB63 PO; -METO25TAB PO; -NEOSOINT EXT; +NITR0.4S SL; -NORC10TA21 PO; +NORC1TAB5 PO; -NORCOTAB PO; +NYST100029 TOP; -NYST10CR TOP
--- NOTE | 2018-10-05 16:05 | REP ---
CT Head without contrast HISTORY: Scalp mass COMPARISON: 10/23/2016 There is no intraparenchymal hemorrhage, acute infarct, mass or midline shift. The ventricular system is normal in appearance. There is no extra cerebral collection. A 14 mm lesion containing prominent trabeculae is present in the left frontal bone. The lesion is slightly increased in size compared to the previous study. There is slight erosion of the of the overlying outer table of the left frontal bone. The inner table is intact. The visualized sinuses are clear. IMPRESSION: 1. There is no intracranial lesion. 2. There is a 14 mm lesion containing prominent trabeculae in the left frontal bone that is slightly increased in size compared to the previous study. This most likely represents a hemangioma. This may also represent an osteoma or possibly ossifying fibroma. Electronically Signed by Chet Hancock MD 10/05/2018 03:57 P
== END ==
LOC: M RAD 15:23
PROVIDERS: ATTEND Nurse Practitioner Family
DX: R22.0 Localized swelling, mass and lump, head (principal)

== ENCOUNTER → 2019-03-07 | Outpatient (REF) | payer OTHER ==
[~2019-03-07] MED LIST changes: -DIPH25CA PO; +DIPH25CA32 PO; -DULO1CAP2 PO; -DULO1CAP3 PO; +DULO1CAP5 PO; +DULO1CAP6 PO; +RANO500T7 PO; -RANO5TAB PO
[2019-03-07 13:28] LABS: BILIRUBIN,TOTAL 0.4 MG/DL (0.2-1.0); CALCIUM LEVEL 9.1 MG/DL (8.8-10.2); CREATININE FOR GFR 1.81 MG/DL (0.55-1.30); GLOMERULAR FILTRATION RATE 30.3 (>45)
[2019-03-07 13:36] LABS: TOTAL 25(OH) VITAMIN D 30.2 NG/ML (30.0-100.0)
== END ==
LOC: M SFHCPLAZ 10:53
PROVIDERS: ATTEND Nurse Practitioner Family
DX: I10 Essential (primary) hypertension (principal); E55.9 Vitamin D deficiency, unspecified

== ENCOUNTER 2019-09-11 11:05 | Emergency (ER) | payer OTHER ==
[~2019-09-11] VITALS: Ht 165.1 cm; Wt 185.9 kg
[~2019-09-11 11:05] MED LIST changes: -BUPR300T34 PO; +BUPR300T92 PO
[2019-09-11] MEDS ORDERED: BREO1INH3 (11:34)
[2019-09-11] MEDS ORDERED: BASA100I (11:34)
[2019-09-11] MEDS ORDERED: CYCL5TAB (11:34)
[2019-09-11] MEDS ORDERED: IPRA0.00 (11:34)
[2019-09-11] MEDS ORDERED: VITA50005 (11:34)
[2019-09-11] MEDS ORDERED: BUPR300T92 (11:34)
[2019-09-11] MEDS ORDERED: LISI10TA4 (11:34)
--- NOTE | 2019-09-11 12:28 | REP ---
Left foot series: Four views. History:. The foot on furniture. Findings: Four views of the left foot demonstrate overall normal mineralization. No phalangeal fracture is seen. No metatarsal or tarsal injury is seen. There are fairly large plantar and Achilles calcaneal spurs noted. Impression: Heel spurs. No acute bony abnormality. Electronically Signed by Rafael Nogueira MD 09/11/2019 12:19 P
[2019-09-11] MEDS ORDERED: MUPI2OI TOP (12:52)
[2019-09-11 14:13] VITALS: BP 152/70
== END 2019-09-11 14:23 | disposition home or self-care (01) ==
LOC: EDBD 11:05 → M ED 11:05
DX: S90.812A Abrasion, left foot, initial encounter (principal); W22.03XA Walked into furniture, initial encounter; Y92.099 Unspecified place in other non-institutional residence as the place of occurrence of the external cause; Y93.9 Activity, unspecified; Y99.9 Unspecified external cause status; M77.32 Calcaneal spur, left foot; E11.40 Type 2 diabetes mellitus with diabetic neuropathy, unspecified; Z79.4 Long term (current) use of insulin; Z79.899 Other long term (current) drug therapy; Z88.6 Allergy status to analgesic agent; Z88.8 Allergy status to other drugs, medicaments and biological substances; Z91.89 Other specified personal risk factors, not elsewhere classified; Z91.018 Allergy to other foods

== ENCOUNTER → 2019-09-15 | Outpatient (REF) | payer OTHER ==
[~2019-09-15] MED LIST changes: +BASA100I; +BREO1INH3; +BUPR300T92; +CYCL5TAB; +IPRA0.00; +LISI10TA4; +MUPI2OI TOP; +VITA50005
[2019-09-15 13:09] LABS: HEMATOCRIT 37.8 % (36.0-47.0); MEAN CORPUSCULAR HGB CONC 31.7 g/dl (32.0-36.5); MEAN CORPUSCULAR VOLUME 97.7 fl (80.0-96.0); PLATELET COUNT, AUTOMATED 319 10^3/uL (150-450); RED BLOOD COUNT 3.87 10^6/uL (4.00-5.40); WHITE BLOOD COUNT 9.8 10^3/uL (4.0-10.0)
[2019-09-15 14:18] LABS: ALBUMIN 2.8 GM/DL (3.2-5.2); BILIRUBIN,TOTAL 0.3 MG/DL (0.2-1.0); CALCIUM LEVEL 9.2 MG/DL (8.8-10.2); CREATININE FOR GFR 1.94 MG/DL (0.55-1.30); GLOMERULAR FILTRATION RATE 27.8 (>45); TOTAL PROTEIN 6.9 GM/DL (6.4-8.2)
== END ==
LOC: M SFHCPLAZ 11:42
PROVIDERS: ATTEND Nurse Practitioner Family
DX: M48.061 Spinal stenosis, lumbar region without neurogenic claudication (principal); I10 Essential (primary) hypertension; S91.302D Unspecified open wound, left foot, subsequent encounter; X58.XXXD Exposure to other specified factors, subsequent encounter

== ENCOUNTER 2019-12-14 09:49 | Emergency (ER) | payer OTHER ==
[2019-12-14 10:38] LABS: BASO # 0.1 10^3/uL (0.0-0.2); BASO % 0.9 % (0.0-1.0); EOS # 0.4 10^3/uL (0.0-0.5); EOS % 3.5 % (0.0-3.0); HEMOGLOBIN 13.1 g/dl (12.0-15.5); LYMPH # 3.2 10^3/uL (1.5-5.0); LYMPH % 28.1 % (24.0-44.0); MEAN CORPUSCULAR HEMOGLOBIN 31.9 pg (27.0-33.0); MEAN CORPUSCULAR HGB CONC 33.6 g/dl (32.0-36.5); MEAN CORPUSCULAR VOLUME 94.9 fl (80.0-96.0); MONO # 0.8 10^3/uL (0.0-0.8); MONO % 7.5 % (0.0-5.0); NEUTROPHILS # 6.7 10^3/uL (1.5-8.5); NEUTROPHILS % 59.3 % (36.0-66.0); PLATELET COUNT, AUTOMATED 309 10^3/uL (150-450); RED BLOOD COUNT 4.11 10^6/uL (4.00-5.40); WHITE BLOOD COUNT 11.2 10^3/uL (4.0-10.0)
[2019-12-14] MEDS ORDERED: HumuLIN R (REGULAR) INSULIN (NovoLIN R) **100U/ML** PER UNIT IV ONE (11:15)
--- NOTE | 2019-12-14 11:16 | REP ---
CHEST SINGLE VIEW: Single view of the chest is performed. COMPARISON: 05/11/2017 There is cardiomegaly. No acute infiltrate is seen. Mediastinal silhouette appears unchanged compared to 05/11/2017. IMPRESSION: Cardiomegaly with no evidence of acute infiltrate. Electronically Signed by Sher Thakkar MD 12/19/2019 05:58 P
--- NOTE | 2019-12-14 11:25 | REP ---
RIGHT FOOT SERIES: Four views of the right foot performed. There is a slightly displaced fracture of the base of the 5th proximal phalanx. No other acute fracture or dislocation is seen. There is mild inferior calcaneal spurring and moderate posterior calcaneal spurring. There is mild narrowing of the 1st metatarsophalangeal joint. IMPRESSION: Slightly displaced fracture base of 5th proximal phalanx. Electronically Signed by Sher Thakkar MD 12/19/2019 05:59 P
[2019-12-14] MEDS ORDERED: ACETAMINOPHEN 325 MG TAB PO ONE (13:15)
[2019-12-14 13:17] LABS: HEMOGLOBIN A1c 11.7 %
[2019-12-14] MEDS ORDERED: traMADol 50 MG TAB As Ordered ONE (13:35)
[2019-12-14] MEDS ORDERED: traMADol 50 MG TAB PO ONE (13:45)
[2019-12-14 15:15] VITALS: BP 192/93
[2019-12-14] MEDS ORDERED: METOPROLOL TART 25 MG TABLET PO ONE (15:15)
[2019-12-14] MEDS ORDERED: ACETAMINOPHEN 500 MG TAB PO ONE (18:30)
[2019-12-14 18:44] VITALS: BP 173/76
--- NOTE | 2019-12-14 21:31 | ECGEPIP ---
[facility] - ED Test Date: 2019-12-14 Pat Name: NUNO PATEL Department: Room: - Gender: Female Key Filer: jesijacey : [id number] Requested By: Courtney Woodson Order Number: [id number] Reading MD: Max Lobo Measurements Intervals Glennie Rate: 84 P: 15 GA: 136 QRS: -66 QRSD: 134 T: 15 QT: 417 QTc: 495 Interpretive Statements SINUS RHYTHM RIGHT BUNDLE BRANCH BLOCK LEFT ANTERIOR FASCICULAR BLOCK LEFT AXIS DEVIATION SIMILAR TO 03/05/17 Electronically Signed on 12-14-2019 21:31:25 EDT by Max Lobo
== END 2019-12-14 20:35 | disposition left against medical advice (07) ==
LOC: EDBD 09:49 → M ED 09:49
DX: R07.9 Chest pain, unspecified (principal); S92.511A Displaced fracture of proximal phalanx of right lesser toe(s), initial encounter for closed fracture; W23.0XXA Caught, crushed, jammed, or pinched between moving objects, initial encounter; Y92.099 Unspecified place in other non-institutional residence as the place of occurrence of the external cause; Y93.9 Activity, unspecified; Y99.9 Unspecified external cause status; M77.31 Calcaneal spur, right foot; I51.7 Cardiomegaly; I45.10 Unspecified right bundle-branch block; I44.4 Left anterior fascicular block; E11.9 Type 2 diabetes mellitus without complications; I10 Essential (primary) hypertension; N18.9 Chronic kidney disease, unspecified; J45.909 Unspecified asthma, uncomplicated; G47.30 Sleep apnea, unspecified; Z86.73 Personal history of transient ischemic attack (TIA), and cerebral infarction without residual deficits; Z79.4 Long term (current) use of insulin; Z79.899 Other long term (current) drug therapy; Z88.6 Allergy status to analgesic agent; Z88.8 Allergy status to other drugs, medicaments and biological substances; Z91.018 Allergy to other foods

== ENCOUNTER 2020-01-14 18:17 | Emergency (ER) | payer OTHER ==
--- NOTE | 2020-01-14 19:20 | REPVR ---
PROCEDURE INFORMATION: Exam: CT Head Without Contrast Exam date and time: 01/14/2020 6:50 PM Age: 64 years old Clinical indication: Injury or trauma; Fall; Initial encounter; Blunt trauma (contusions or hematomas); Consciousness not specified TECHNIQUE: Imaging protocol: Computed tomography of the head without contrast. Radiation optimization: All CT scans at this facility use at least one of these dose optimization techniques: automated exposure control; mA and/or kV adjustment per patient size (includes targeted exams where dose is matched to clinical indication); or iterative reconstruction. COMPARISON: CT Head without contrast 10/05/2018 3:42 PM FINDINGS: Brain: Normal. No hemorrhage. Unremarkable white matter. No mass effect. Ventricles: Normal. No ventriculomegaly. Bones/joints: 1.4 cm trabeculated partially exophytic focus in the left frontal bone consistent with a hemangioma, stable in size. Sinuses: Visualized sinuses are unremarkable. No fluid levels. Mastoid air cells: Visualized mastoid air cells are well aerated. Soft tissues: Unremarkable. IMPRESSION: 1. 1.4 cm trabeculated partially exophytic focus in the left frontal bone consistent with a hemangioma, stable in size. 2. No acute intracranial findings. Electronically signed by: Sandeep Hernández On 01/14/2020 19:20:10 PM
[2020-01-14 20:44] VITALS: BP 162/86
== END 2020-01-14 20:45 | disposition home or self-care (01) ==
LOC: M ED 18:17
DX: S01.01XA Laceration without foreign body of scalp, initial encounter (principal); W19.XXXA Unspecified fall, initial encounter; Y92.099 Unspecified place in other non-institutional residence as the place of occurrence of the external cause; Y93.9 Activity, unspecified; Y99.9 Unspecified external cause status; I10 Essential (primary) hypertension; E11.9 Type 2 diabetes mellitus without complications; Z79.4 Long term (current) use of insulin; Z79.899 Other long term (current) drug therapy; Z88.6 Allergy status to analgesic agent; Z88.8 Allergy status to other drugs, medicaments and biological substances; Z91.89 Other specified personal risk factors, not elsewhere classified; Z91.018 Allergy to other foods